=== PATIENT | male | born 1960 ===

== ENCOUNTER 2016-10-28 08:48 | Day surgery (SDC) | payer BC ==
[2016-10-18 10:46] VITALS: BMI 26.9
[2016-10-28 09:10] VITALS: RESP 16
[2016-10-28] MEDS ORDERED: Lactated Ringer's 1,000 ML IV SCH (09:15)
[2016-10-28] MEDS ORDERED: Propofol 10 mg/ml Inj (20 ML) ONE (09:20)
[2016-10-28 10:27] VITALS: TEMP 97.4
[2016-10-28 11:24] VITALS: PULSE 72; O2SAT 97
[2016-10-28 11:45] VITALS: BP 108/56
== END 2016-10-28 11:44 | disposition home or self-care (01) ==
LOC: ENDO 08:48
PROVIDERS: ATTEND Internal Medicine
DX: K29.00 Acute gastritis without bleeding (principal); R13.10 Dysphagia, unspecified; K26.9 Duodenal ulcer, unspecified as acute or chronic, without hemorrhage or perforation; Z12.11 Encounter for screening for malignant neoplasm of colon; K63.5 Polyp of colon; K64.8 Other hemorrhoids; K57.30 Diverticulosis of large intestine without perforation or abscess without bleeding; I25.10 Atherosclerotic heart disease of native coronary artery without angina pectoris
CPT/HCPCS: 43239; 45380; 88305; 88342; J2001; J2704; J3010; J7040; J7120

== ENCOUNTER 2016-12-05 06:43 | Day surgery (SDC) | payer BC ==
[2016-10-18 10:46] VITALS: BMI 26.9
--- NOTE | 2016-12-05 01:36 | HP ---
REASON FOR ADMISSION: Left heart catheterization, possible angioplasty. BRIEF CLINICAL HISTORY: This is a 56-year-old male with past medical history of hypertension who was recently patient is scheduled for elective cardiac cath and possible angioplasty. The patient denies any chest pain, shortness of breath, any palpitation. Positive for hypertension. SOCIAL HISTORY: Denies any history of alcohol abuse. CURRENT MEDICATIONS: The patient is taking metoprolol 25 mg daily and Protonix 40 mg daily. LABORATORY DATA: Cardiac workup as follows: The patient had a stress test 08/28/2016 that shows abn ormal myocardial perfusion study, ejection fraction 56%, partially reversible apical defect suspiciou s for ischemia. The patient had echocardiography done that shows ejection fraction 55-60%, trace aor tic regurgitation, trace mitral regurgitation, trace tricuspid regurgitation. REVIEW OF SYSTEMS: As per HPI. PHYSICAL EXAMINATION: VITAL SIGNS: Temperature afebrile, heart rate 60, blood pressure 120/30. HEENT: PERRLA. Extraocular muscles intact. NECK: Supple. No carotid bruits. No thyromegaly. CHEST: Clear to auscultation. HEART: S1, S2 regular. ABDOMEN: Soft. EXTREMITIES: Clubbing and cyanosis negative. Height of the patient 5 feet 10 inches. The weight of the patient is 182 pounds. RECOMMENDATION: Will give Plavix 300 mg, aspirin 325 and cardiac catheterization . I explained to the patient, the patient agreed, will proceed for cardiac catheterization. Further recommendatio n after cardiac catheterization. Will follow with you. Thank you, / , for providing the opportunity in taking care of the patient. Ifeanyi Groves MD cc: [id number] TT: 12/05/2016 01:36:21 evelyn
[2016-12-05 07:08] LABS: ADD MANUAL DIFF? NO
[2016-12-05 07:17] LABS: BASO # 0.01 K/mm3 (0.0-2.0); BASO % 0.2 % (0.0-3.0); EOS # 0.2 (0.0-0.7); EOS % 2.3 % (1.5-5.0); GRAN # 3.58 (1.4-6.5); GRAN % 54.3 % (50.0-68.0); HEMATOCRIT 41.1 % (42.0-52.0); LYMPH # 2.3 (1.2-3.4); LYMPH % 34.5 % (22.0-35.0); MEAN CELL VOLUME 81.7 fL (80.0-105.0); MEAN CORPUSCULAR HEMOGLOBIN 28.8 pg (25.0-35.0); MEAN CORPUSCULAR HGB CONC 35.3 g/dl (31.0-37.0); MEAN PLATELET VOLUME 9.5 fl (7.0-11.0); MONO # 0.6 (0.1-0.6); MONO % 8.7 % (1.0-6.0); PLATELET COUNT 235 10^3/uL (120.0-450.0); RED CELL DISTRIBUTION WIDTH 13.7 % (11.5-14.5); WHITE BLOOD COUNT 6.6 10^3/ul (4.5-11.0)
[2016-12-05 07:21] LABS: BLOOD UREA NITROGEN 14 mg/dL (7-21); CALCIUM 8.9 mg/dL (8.4-10.5); CARBON DIOXIDE 25 mmol/L (21-33); CHLORIDE 105 mmol/L (98-107); CHOLESTEROL 121 mg/dL (130-200); GFR AFRICAN-AMERICAN > 60; GLUCOSE,RANDOM 121 mg/dL (70-110); POTASSIUM 3.7 mmol/L (3.6-5.0); SODIUM 136 mmol/L (132-148)
[2016-12-05 07:24] LABS: INR 1.06 (0.93-1.08); PARTIAL THROMBOPLASTIN TIME 27.8 Seconds (23.7-30.8)
[2016-12-05] MEDS ORDERED: Lidocaine 2% Inj (20ml) ONE (09:29)
[2016-12-05] MEDS ORDERED: Midazolam 2 MG/2 ML VIAL ONE (09:29)
[2016-12-05] MEDS ORDERED: Iodixanol 320 MG/ML 200 ML BOTTLE IV ONE (09:30)
[2016-12-05] MEDS ORDERED: Iohexol 350mgl/ml 50 ML ONE (09:30)
[2016-12-05] MEDS ORDERED: Bacitracin 500 Units/gm Oint Foilpak UD TOP ONE (10:42)
[2016-12-05] MEDS ORDERED: Sodium Chloride 0.9% 1,000 ML IV SCH (10:45)
[2016-12-05 10:56] VITALS: TEMP 97.4
[2016-12-05 12:20] VITALS: BP 113/66; PULSE 54; RESP 20; O2SAT 98
--- NOTE | 2016-12-05 13:13 | CARD ---
APPROVED REPORT Procedure(s) performed: Left Heart Catheterization HISTORY The patient is a 56 year-old male with a history of : hypertension , C/O chest pain and abnormal Stress test. INDICATION The indication(s) include : positive stress test. CASE TECHNIQUE The patient was brought electively to the Cardiac Catheterization Laboratory in a fasting state and was prepped and draped in a sterile manner. The left wrist was infiltrated with 2% Lidocaine subcutaneous anesthesia. A Radial sheath sheath was inserted into the left radial artery without difficulty. Coronary angiography was performed using coronary diagnostic catheters. The left coronary system was accessed and visualized with a Diagnostic , JL3.5 ,5FR catheter. The right coronary system was accessed and visualized with a Diagnostic , JR 3.5,5Fr catheter. The left ventricle was accessed and visualized with a pig tail catheter. Left ventricular/Aortic Valve gradient assessed on pullback. Left ventriculogram was performed in MYRICK projection. Closure device was deployed with a Fr TR Band without any complications. The patient tolerated the procedure well and there were no complications associated with the procedure. Vessel Analysis The patient's coronary anatomy is right dominant. The left main coronary artery is a large size vessel with intimal irregularities. The left main trifurcates to the left anterior descending, circumflex, and ramus. The left anterior descending artery is a medium size vessel with intimal irregularities. The first diagonal branch is a medium size vessel with diffuse calcification noted throughout this vessel and without significant stenosis. The second diagonal branch is a small size vessel with intimal irregularities. The circumflex artery is a medium size vessel without significant stenosis. The first obtuse marginal branch is a small size vessel without significant stenosis. The ramus intermedius artery is a large size vessel without significant stenosis. The right coronary artery is a large size vessel with intimal irregularities and without significant stenosis. The right posterior descending artery is a large size vessel with intimal irregularities and without significant stenosis. Left Ventricle The left ventricle is normal in size with normal contractility. There was no cardiomyopathy. The left ventricular ejection fraction is estimated to be 55-60%. The left ventricular end diastolic pressure is 14 mmHg. There was no gradient across the aortic valve upon pullback. Conclusion Normal Coronaries Preserved LV FX. EF-55-60%, EDP-14 mmof Hg. When copmared from previouis Film dt.,12/04/2006 No significant change. Recommendations Smoking Cessation Cardiac Risk Reduction Program Weight Loss Reduction Program Consider W / U for Non Cardiac Chest pain Cc; Drs. Villagomez / Francesca.
[2016-12-05] MEDS ORDERED: Bacitracin 500 Units/gm Oint Foilpak UD ONE (13:55)
== END 2016-12-05 15:00 | disposition home or self-care (01) ==
LOC: CATH 06:43
PROVIDERS: ATTEND Internal Medicine Cardiovascular Disease
DX: R07.89 Other chest pain (principal); I10 Essential (primary) hypertension; R94.31 Abnormal electrocardiogram [ECG] [EKG]
CPT/HCPCS: 36415; 80048; 80061; 85025; 85610; 85730; 86850; 86900; 93458; 99152; C1769; C1887 ×2; J1644 ×2; J2250; J3010; J7040 ×2

== ENCOUNTER 2017-07-01 12:01 | Emergency (ER) | payer BC ==
[2017-07-01 12:20] VITALS: BP 145/77; PULSE 77; RESP 16; TEMP 98.2; O2SAT 98; BMI 43.2
--- NOTE | 2017-07-01 12:51 | ED PDOC ---
Arrival/HPI - General Chief Complaint: Dizziness/Lightheaded Time Seen by Provider: 07/01/17 12:12 Historian: Patient - History of Present Illness Narrative History of Present Illness (Text): 07/01/17 12:48 57 yo male with two weeks of pressure across forehead accompanied by episodic dizziness. Triggered by moving objects around him. Mild frontal headache. No trauma and no vision change. No recent fevers or illnesses. No chest pain. Symptoms are mild to moderate in severity. Incidentally patient says he has pain at right heel with weight bearing for over a month. Past Medical History - Patient History Narrative Patient History: Hypertension - Infectious Disease Hx of Infectious Diseases: None - Cardiac Hx Hypertension: Yes - Pulmonary Hx Respiratory Disorders: Yes Hx Emphysema: Yes Other/Comment: URI - Neurological Hx Paralysis: No - HEENT Hx HEENT Disorder: No - Renal Hx Renal Disorder: No - Endocrine/Metabolic Hx Endocrine Disorders: No - Hematological/Oncological Hx Blood Transfusions: No - Integumentary Hx Dermatological Disorder: No - Musculoskeletal/Rheumatological Hx Musculoskeletal Disorders: Yes - Gastrointestinal Hx Gastrointestinal Disorders: No - Genitourinary/Gynecological Hx Genitourinary Disorders: No - Psychiatric Hx Emotional Abuse: No Hx Physical Abuse: No Hx Substance Use: No - Past Surgical History Past Surgical History: No Previous - Surgical History Hx Musculoskeletal Surgery: Yes (toe) - Anesthesia Hx Anesthesia Reactions: No Hx Malignant Hyperthermia: No - Suicidal Assessment Feels Threatened In Home Enviroment: No Family/Social History Family/Social History: No Known Family HX Smoking Status: Heavy Smoker > 10 Cigarettes Daily Hx Alcohol Use: Yes (OCCASIONALLY) Hx Substance Use: No Allergies/Home Meds Allergies/Adverse Reactions: Allergies No Known Allergies Allergy (Verified 07/01/17 12:53) Patient relates allergy to IV contrast Home Medications: Home Meds Medication Instructions Recorded Confirmed Metoprolol Tartrate [Lopressor] 25 mg PO BID 10/18/16 07/01/17 Review of Systems - Review of Systems Constitutional: Normal Eyes: Normal ENT: Sinus Congestion Respiratory: Normal Cardiovascular: Normal Gastrointestinal: Normal Musculoskeletal: Other Skin: Normal Neurological: Headache Endocrine: Normal Hemo/Lymphatic: Normal Psychiatric: Normal Physical Exam Vital Signs Temp Pulse Resp BP Pulse Ox 07/01/17 12:02 98.2 F 77 16 145/77 98 Disposition/Present on Arrival - Present on Arrival Any Indicators Present on Arrival: No History of DVT/PE: No History of Uncontrolled Diabetes: No Urinary Catheter: No History of Decub. Ulcer: No History Surgical Site Infection Following: None - Disposition Have Diagnosis and Disposition been Completed?: Yes Diagnosis: Vertigo, Sinus congestion Disposition: HOME/ ROUTINE Disposition Time: 12:45 Patient Problems: Current Active Problems Problem Status Onset Vertigo Acute Sinus congestion Acute Condition: STABLE Discharge Instructions (ExitCare): Analgesic/Decongestant (By mouth), Vertigo ( ED) Prescriptions: Meclizine HCl 25 mg PO TID PRN #14 tablet PRN Reason: Dizziness Pseudoephedrine HCl [Sudafed] 30 mg PO BID PRN #14 tablet PRN Reason: Sinus Symptoms Referrals: Gildardo Nuno MD [Staff Provider] - Follow up with primary Forms: [facility] (Romansh), WORK NOTE
--- NOTE | 2017-07-02 07:44 | CARD ---
APPROVED REPORT EKG Measurement Heart [id number] <Conclusion> Normal sinus rhythm LVH by voltage
== END 2017-07-01 12:49 | disposition home or self-care (01) ==
LOC: ED 12:01
DX: R09.81 Nasal congestion (principal); R42 Dizziness and giddiness; I10 Essential (primary) hypertension; F17.210 Nicotine dependence, cigarettes, uncomplicated

== ENCOUNTER 2017-07-02 18:48 | Inpatient (IN) | payer BC ==
[2017-07-02 18:52] VITALS: BMI 25.1
--- NOTE | 2017-07-02 19:30 | CT ---
EXAM: CT Head Without Intravenous Contrast EXAM DATE/TIME: 07/02/2017 6:53 PM CLINICAL HISTORY: 57 years old, male; Signs and symptoms; Other: Weakness; Additional info: R/O stroke TECHNIQUE: Axial computed tomography images of the head/brain without intravenous contrast. All CT scans at this facility use one or more dose reduction techniques, viz.: automated exposure control; ma/kV adjustment per patient size (including targeted exams where dose is matched to indication; i.e. head); or iterative reconstruction technique. COMPARISON: No relevant prior studies available. FINDINGS: BRAIN: 1.6 cm round density in the right occipital lobe, which has a CT attenuation of 40-60 Hounsfield units, mildly hyperdense compared to navarrete matter. This is intraparenchymal in location, centered at the navarrete/white matter junction, and is suspicious for a mildly hyperdense intracranial lesion. There is a large area of nearby low density in the right occipital, parietal, and posterior frontal lobes, which appears to primarily involve the subcortical and deep white matter, and is suspicious for a large area of vasogenic edema, secondary to an underlying mass, rather than cytotoxic edema secondary to air acute infarct. There is associated intracranial mass effect. There is shift of the midline to the left up up to 4 mm, as well as effacement of the right lateral ventricle and diffuse sulcal effacement. No other significant abnormality identified. No acute extra-axial fluid collections visualized. No evidence of basilar cistern effacement. VENTRICLES: No evidence of significant hydrocephalus. BONES/JOINTS: No acute fractures or other acute bony abnormality noted. SOFT TISSUES: No acute abnormality of the visualized soft tissues is seen. SINUSES: Visualized paranasal sinuses appear clear. MASTOID AIR CELLS: Fluid in the mastoid air cells bilaterally, suspicious for bilateral mastoiditis. IMPRESSION: - Large area of edema in the right cerebral hemisphere posteriorly, suspicious for vasogenic edema secondary to an underlying intracranial lesion, in the right occipital lobe. There is a 1.7 cm mildly hyperdense lesion in the right occipital lobe, suspicious for a faintly hemorrhagic intracranial mass. A hemorrhagic metastatic lesion or primary brain tumor, such as a glioblastoma multiforme, are possible etiologies. - Associated intracranial mass effect, including 4 mm midline shift to the left. - See above for remaining findings.
[2017-07-02 19:31] LABS: BASO # 0.02 K/mm3 (0.0-2.0); BASO % 0.2 % (0.0-3.0); EOS # 0.2 (0.0-0.7); EOS % 2.7 % (1.5-5.0); GRAN # 5.19 (1.4-6.5); GRAN % 60.3 % (50.0-68.0); HEMATOCRIT 41.7 % (42.0-52.0); LYMPH # 2.6 (1.2-3.4); LYMPH % 30.3 % (22.0-35.0); MEAN CELL VOLUME 82.2 fl (80.0-105.0); MEAN CORPUSCULAR HEMOGLOBIN 28.6 pg (25.0-35.0); MEAN CORPUSCULAR HGB CONC 34.8 g/dl (31.0-37.0); MEAN PLATELET VOLUME 9.7 fl (7.0-11.0); MONO # 0.6 (0.1-0.6); MONO % 6.5 % (1.0-6.0); RED CELL DISTRIBUTION WIDTH 13.8 % (11.5-14.5); WHITE BLOOD COUNT 8.6 10^3/ul (4.5-11.0)
[2017-07-02 19:39] LABS: ALB/GLOB RATIO 1.1 (1.1-1.8); ALKALINE PHOSPHATASE 126 U/L (38-126); ALT/SGPT 29 U/L (7-56); AST/SGOT 20 U/L (17-59); BILIRUBIN,TOTAL 0.6 mg/dL (0.2-1.3); BLOOD UREA NITROGEN 12 mg/dL (7-21); CALCIUM 9.6 mg/dL (8.4-10.5); CARBON DIOXIDE 28 mmol/L (21-33); CHLORIDE 102 mmol/L (98-107); GFR AFRICAN-AMERICAN > 60; GLUCOSE,RANDOM 116 mg/dL (70-110); POTASSIUM 3.7 mmol/L (3.6-5.0); SODIUM 138 mmol/L (132-148); TOTAL PROTEIN 7.6 g/dL (5.8-8.3)
[2017-07-02 19:43] LABS: INR 1.17 (0.93-1.08); PARTIAL THROMBOPLASTIN TIME 32.7 Seconds (25.1-36.5)
[2017-07-02] MEDS ORDERED: levETIRAcetam 1,000 MG in Sodium Chloride 0.9% 100 ML IV ONE (19:44)
[2017-07-02 19:51] LABS: TROPONIN I < 0.01 ng/mL
--- NOTE | 2017-07-02 20:20 | CT ---
EXAM: CT Angiography Head With Intravenous Contrast CT Angiography Neck With Intravenous Contrast EXAM DATE/TIME: 07/02/2017 6:57 PM CLINICAL HISTORY: 57 years old, male; Signs and symptoms; Weakness; Additional info: CVA TECHNIQUE: Axial computed tomographic angiography images of the head and neck with intravenous contrast using CT angiography protocol. All CT scans at this facility use one or more dose reduction techniques, viz.: automated exposure control; ma/kV adjustment per patient size (including targeted exams where dose is matched to indication; i.e. head); or iterative reconstruction technique. All CT scans at this facility use one or more dose reduction techniques, viz.: automated exposure control; ma/kV adjustment per patient size (including targeted exams where dose is matched to indication; i.e. head); or iterative reconstruction technique. MIP reconstructed images were created and reviewed. Coronal and sagittal reformatted images were created and reviewed. CONTRAST: 140 mL of OMNI 350 administered intravenously. COMPARISON: Recent noncontrast head CT FINDINGS: LIMITATIONS: Mild streak/motion artifact. HEAD: RIGHT ANTERIOR CEREBRAL ARTERY: No evidence of occlusion. No aneurysm visualized. RIGHT MIDDLE CEREBRAL ARTERY: No evidence of occlusion. No aneurysm visualized. RIGHT POSTERIOR CEREBRAL ARTERY: No evidence of occlusion. No aneurysm visualized. LEFT ANTERIOR CEREBRAL ARTERY: No evidence of occlusion. No aneurysm visualized. LEFT MIDDLE CEREBRAL ARTERY: No evidence of occlusion. No aneurysm visualized. LEFT POSTERIOR CEREBRAL ARTERY: No evidence of occlusion. No aneurysm visualized. BASILAR ARTERY: No evidence of occlusion or significant stenosis. No aneurysm visualized. BRAIN: 1.7 cm lesion in the right occipital lobe, with extensive adjacent low-density edema in the right cerebral hemisphere, as seen on the recent noncontrast head CT. This demonstrates rim enhancement. 2 additional, smaller areas of edema are seen in the brain, in the left parietal lobe, and in the left high frontal lobe, better seen on this study than on the noncontrast head CT, suspicious for additional areas of edema, most likely secondary to additional underlying intracranial lesions, however, these lesions are not visible on this exam. NECK: RIGHT COMMON CAROTID ARTERY: No evidence of occlusion or significant stenosis. No evidence of dissection. RIGHT INTERNAL CAROTID ARTERY: Minimal atherosclerotic plaque in the right carotid bulb, causing a stenosis of approximately 10%. No evidence of occlusion. No evidence of dissection. RIGHT EXTERNAL CAROTID ARTERY: No evidence of occlusion. RIGHT VERTEBRAL ARTERY: No evidence of occlusion or significant stenosis. No evidence of dissection. LEFT COMMON CAROTID ARTERY: No evidence of occlusion or significant stenosis. No evidence of dissection. LEFT INTERNAL CAROTID ARTERY: No evidence of occlusion. No aneurysm visualized. LEFT EXTERNAL CAROTID ARTERY: No evidence of occlusion. LEFT VERTEBRAL ARTERY: No evidence of occlusion or significant stenosis. No evidence of dissection. THYROID: 1.6 cm right thyroid nodule. At least 2 additional smaller right thyroid nodules also noted. Recommend thyroid ultrasound or scintigraphy for further evaluation, given the size of this nodule, on a nonemergent basis, unless otherwise clinically indicated. LUNG APICES: Large, spiculated mass in the left lung apex, highly suspicious for neoplasm. This measures 6.6 x 5.3 cm. Marked emphysematous changes in the lung apices. HEAD and NECK: BONES/JOINTS: No acute bony abnormality identified. SOFT TISSUES: No acute abnormality of the visualized soft tissues seen. LYMPH NODES: Mild mediastinal lymphadenopathy. CAROTID STENOSIS REFERENCE USING NASCET CRITERIA: % ICA stenosis = (1 - narrowest ICA diameter/diameter of distal cervical ICA) x 100. Mild - <50% stenosis. Moderate - 50-69% stenosis. Severe - 70-94% stenosis. Near occlusion - 95-99% stenosis. Occluded - 100% stenosis. IMPRESSION: - No evidence of occlusion or other acute abnormality of the major intracranial or neck arteries. - Large 6.6 cm spiculated mass in the left lung apex, with nearby mediastinal lymphadenopathy. Findings are highly suspicious for neoplasm. - 1.7 cm lesion in the right occipital lobe, with a extensive nearby edema. 2 smaller areas of edema in the left frontal and parietal lobes, suspicious for edema due to additional underlying intracranial lesions. - Constellation of findings is highly suspicious for primary lung neoplasm, with multiple intracranial metastases. MRI of the brain is recommended for further evaluation. - See above for remaining findings.
--- NOTE | 2017-07-02 20:27 | ED PDOC ---
Arrival/HPI - General Chief Complaint: Weakness/Neurological Deficit Time Seen by Provider: 07/02/17 18:57 Historian: Patient EM Caveat: Acuity of Condition - Critical Care Critical Care Minutes: 90 minutes - History of Present Illness Narrative History of Present Illness (Text): 57 year old male w/ past medical history, cigarrette smoking, recent 07/01/17 Emergency department visit for dizziness w/ diagnosis of vertigo hypertension presents bibems complaining of acute onset of left sided hemiparasthesiae characterized as numbness in lue/lle. Pt endorses mild headache, but deneis nay acute symptoms of infective foci. 07/02/17 20:22 Time/Duration: 1-3 hours Symptom Onset: Sudden Past Medical History - Provider Review Nursing Documentation Reviewed: Yes - Infectious Disease Hx of Infectious Diseases: None - Cardiac Hx Hypertension: Yes - Pulmonary Hx Respiratory Disorders: Yes Hx Emphysema: Yes Other/Comment: URI - Neurological Hx Paralysis: No - HEENT Hx HEENT Disorder: No - Renal Hx Renal Disorder: No - Endocrine/Metabolic Hx Endocrine Disorders: No - Hematological/Oncological Hx Blood Transfusions: No - Integumentary Hx Dermatological Disorder: No - Musculoskeletal/Rheumatological Hx Musculoskeletal Disorders: Yes - Gastrointestinal Hx Gastrointestinal Disorders: No - Genitourinary/Gynecological Hx Genitourinary Disorders: No - Psychiatric Hx Emotional Abuse: No Hx Physical Abuse: No Hx Substance Use: No - Past Surgical History Past Surgical History: No Previous - Surgical History Hx Musculoskeletal Surgery: Yes (toe) - Anesthesia Hx Anesthesia Reactions: No Hx Malignant Hyperthermia: No - Suicidal Assessment Feels Threatened In Home Enviroment: No Family/Social History - Physician Review Nursing Documentation Reviewed: Yes Family/Social History: No Known Family HX Smoking Status: Heavy Smoker > 10 Cigarettes Daily Hx Alcohol Use: Yes (OCCASIONALLY) Hx Substance Use: No Allergies/Home Meds Allergies/Adverse Reactions: Allergies No Known Allergies Allergy (Verified 07/02/17 18:52) Patient relates allergy to IV contrast Home Medications: Home Meds Medication Instructions Recorded Confirmed Metoprolol Tartrate [Lopressor] 25 mg PO DAILY 10/18/16 07/02/17 Review of Systems - Physician Review All systems were reviewed & negative as marked: Yes - Review of Systems Constitutional: Normal Eyes: Normal ENT: Normal Respiratory: Normal Cardiovascular: Normal Gastrointestinal: Normal Genitourinary Male: Normal Musculoskeletal: Normal Skin: Normal Neurological: Dizziness, Other (aforedescribed) Endocrine: Normal Hemo/Lymphatic: Normal Psychiatric: Normal Physical Exam Vital Signs Reviewed: Yes Temperature: Afebrile Blood Pressure: Normal Pulse: Regular Respiratory Rate: Normal Appearance: Positive for: Well-Appearing, Non-Toxic, Comfortable Pain Distress: None Mental Status: Positive for: Alert and Oriented X 3 Finger Stick Blood Glucose: 123 - Systems Exam Head: Present: Atraumatic, Normocephalic Pupils: Present: PERRL Extroacular Muscles: Present: EOMI Conjunctiva: Present: Normal Mouth: Present: Moist Mucous Membranes Neck: Present: Normal Range of Motion Respiratory/Chest: Present: Clear to Auscultation, Good Air Exchange. No: Respiratory Distress, Accessory Muscle Use Cardiovascular: Present: Regular Rate and Rhythm, Murmurs, Normal S1, S2, Other (systolic ejection murmur best heard at the USB) Abdomen: Present: Normal Bowel Sounds. No: Tenderness, Distention, Peritoneal Signs Back: Present: Normal Inspection Upper Extremity: Present: Normal Inspection. No: Cyanosis, Edema Lower Extremity: Present: Normal Inspection. No: Edema Neurological: Present: GCS=15, CN II-XII Intact, Speech Normal, Motor Func Grossly Intact, Norm Deep Tendon Reflexes, Gait Normal, Memory Normal, Normal 2Pt Descrimination, Other (see nihss documentation as well. pt nihss: 4 (1+ incorrect answer to orientation question, 1+ relative sensory deficit , 1+ left sided neglect , 1+ mild dysmetria w/ fonger past pointing on the left) )) Skin: Present: Warm, Dry, Normal Color. No: Rashes Psychiatric: Present: Alert, Oriented x 3, Normal Insight, Normal Concentration Medical Decision Making ED Course and Treatment: 57 year old male w/ past medical history of hypertension, CAD, cigarrette smoking presents w/ acute left sided numbness/hemineglect , cta head/neck + rt sided posterior fossa mass w/ edema, left sided 4 mm midline shift, + large spiculated mass i the lung, will need admission for mass biospy/characterization /cancer staging , oncologicial workup and treatment. 07/02/17 21:23 - Lab Interpretations Lab Results: 07/02/17 19:10 07/02/17 19:10 Lab Results 07/02/17 19:45: Lactic Acid 1.9 07/02/17 19:10: Sodium 138, Potassium 3.7, Chloride 102, Carbon Dioxide 28, Anion Gap 12, BUN 12, Creatinine 0.8, Est GFR ( Amer) > 60, Est GFR (Non- Af Amer) > 60, Random Glucose 116 H, Calcium 9.6, Total Bilirubin 0.6, AST 20, ALT 29, Alkaline Phosphatase 126, Lactate Dehydrogenase 462, Total Creatine Kinase 124, Troponin I < 0.01, NT-Pro-B Natriuret Pep 36.1, Total Protein 7.6, Albumin 4.1, Globulin 3.6, Albumin/Globulin Ratio 1.1 07/02/17 19:10: WBC 8.6 D, RBC 5.07, Hgb 14.5, Hct 41.7 L, MCV 82.2, MCH 28.6, MCHC 34.8, RDW 13.8, Plt Count 301, MPV 9.7, Gran % 60.3, Lymph % (Auto) 30.3, [place] % (Auto) 6.5 H, Eos % (Auto) 2.7, Baso % (Auto) 0.2, Gran # 5.19, Lymph # 2.6, [place] # 0.6, Eos # 0.2, Baso # 0.02 07/02/17 19:10: PT 12.8 H, INR 1.17 H, APTT 32.7 - RAD Interpretation Radiology Orders: 07/02/17 18:53 HEAD W/O (CODE STROKE) [CT] Stat 07/02/17 18:57 CTA HEAD & NECK BUNDLE [CT] Stat 07/02/17 18:59 CHEST PORTABLE [RAD] Stat - Medication Orders Current Medication Orders: Discontinued Medications Dexamethasone (Decadron Inj) 10 mg IVP STAT STA Stop: 07/02/17 19:45 Last Admin: 07/02/17 19:56 Dose: 10 mg IVP Administration Document 07/02/17 19:56 JOL (Rec: 07/02/17 19:56 JOL [id number]) Charges for Administration # of IVP Administrations 1 Levetiracetam 1,000 mg/ Sodium (Chloride) 110 mls @ 440 mls/hr IV ONCE ONE Stop: 07/02/17 19:58 Last Admin: 07/02/17 20:05 Dose: 440 mls/hr eMAR Start Stop Document 07/02/17 20:05 JOL (Rec: 07/02/17 20:06 JOL [id number]) Intravenous Solution Start Date 07/02/17 Start Time 20:05 End Date 07/02/17 End time 20:20 Total Infusion Time 15 NIHSS Scale (Frost) Time Performed: 18:50 - How Severe is the Stoke Baseline Level of Consciousness: 0=Alert LOC to Questions: 1=One correct LOC to commands: 0=Obeys both correctly Best Gaze: 0=Normal Visual: 0=No visual loss Facial: 0=Normal Motor Arm - Left: 0=No drift Motor Arm - Right: 0=No drift Motor Leg - Left: 0=No drift Motor Leg - Right: 0=No drift Limb Ataxia: 1=Present Upper or Lower Sensory: 1=Mild to moderate loss Best Language: 0=No aphasia Dysarthia: 0=Normal articulation Extinction & Inattention (Neglect): 1=Partial neglect (mild ghanshyam-attention) Score: 4 Risk Level: Minor Stroke Risk Disposition/Present on Arrival - Present on Arrival Any Indicators Present on Arrival: No History of DVT/PE: No History of Uncontrolled Diabetes: No Urinary Catheter: No History of Decub. Ulcer: No History Surgical Site Infection Following: None - Disposition Have Diagnosis and Disposition been Completed?: Yes Diagnosis: Neoplasm of brain causing mass effect on adjacent structures, Lung mass Disposition: HOSPITALIZED Disposition Time: :22 Patient Plan: Admission Patient Problems: Current Active Problems Problem Status Onset Lung mass Acute Neoplasm of brain causing mass effect on adjacent structures Acute Condition: GUARDED Referrals: PCP,NO [Primary Care Provider] - Follow up with primary Forms: [employer] (Estonian)
[2017-07-02] MEDS: levETIRAcetam 500mg IVPB 500 MG/100 ML BAG IVPB SCH (22:16)
--- NOTE | 2017-07-02 22:27 | CP.PCM.CON ---
<Carly Randolph - Last Filed: 07/07/17 06:47> History of Present Illness - History of Present Illness History of Present Illness: PGY-2 consult note for ICU 57 year old male with past medical history of HTN and tobacco use presents to ED for acute onset of left sided hemiparasthesiae characterized as numbness in left upper extremity and left lower extremity. Patient reports headache. He was recently seen in the ED on 07/01/17 dizziness w/ diagnosis of vertigo hypertension and given meclizine and sudafed. Patient states that he has had headaches, vertigo and blurry vision intermittently over the past 2 weeks. He denies any focal neurological deficits before today. He reports chronic cough with white sputum for past few years. He was diagnosed with HTN about year ago but has not followed up. Patient denies chest pain, fever, chills, sob, nausea, vomiting, diarrhea, or urinary symptoms. PMH: HTN PSH: denies social history: smokes 1ppd since 10 yo, denies alcohol use, illicit drug use family history: mother ovarian cancer allergy: nkda home meds: lopressor 25mg daily Review of Systems - Constitutional Constitutional: Headache. absent: Chills, Fatigue, Fever, Lethargy - EENT Eyes: Blurred Vision Nose/Mouth/Throat: absent: Nasal Congestion, Nasal Discharge - Cardiovascular Cardiovascular: absent: Chest Pain, Dyspnea, Palpitations - Respiratory Respiratory: Cough. absent: Dyspnea, Hemoptysis, Wheezing - Gastrointestinal Gastrointestinal: absent: Abdominal Pain, Constipation, Diarrhea, Hematemesis, Hematochezia, Nausea, Vomiting - Genitourinary Genitourinary: absent: Difficulty Urinating, Dysuria, Hematuria - Musculoskeletal Musculoskeletal: Numbness. absent: Arthralgias, Back Pain, Muscle Weakness, Neck Pain, Tingling - Integumentary Integumentary: absent: Skin Ulcer, Sores, Striae, Swelling, Wounds - Neurological Neurological: Numbness, Headaches, Vertigo. absent: Syncope - Hematologic/Lymphatic Hematologic: absent: Easy Bleeding, Easy Bruising Past Patient History - Infectious Disease Hx of Infectious Diseases: None - Past Social History Smoking Status: Heavy Smoker > 10 Cigarettes Daily - CARDIAC Hx Cardiac Disorders: Yes (chest pain) Hx Hypercholesterolemia: Yes Hx Hypertension: Yes - PULMONARY Hx Respiratory Disorders: Yes Hx Emphysema: Yes Other/Comment: URI - NEUROLOGICAL Hx Neurological Disorder: Yes Hx Dizziness: Yes (vertigo) Other/Comment: headaches on and off x 2 weeks - HEENT Hx HEENT Problems: Yes (sinus congestion) Other/Comment: recent impaired vision r eye blurred, having prioblems with periphral vision and feels like right eye is crossed when following finger - RENAL Hx Chronic Kidney Disease: No - ENDOCRINE/METABOLIC Hx Endocrine Disorders: No - HEMATOLOGICAL/ONCOLOGICAL Hx Blood Disorders: No - INTEGUMENTARY Hx Dermatological Problems: No - MUSCULOSKELETAL/RHEUMATOLOGICAL Hx Musculoskeletal Disorders: Yes Hx Back Pain: Yes (sciatica) Hx Falls: Yes (fell today in ct scan) Hx Unsteady Gait: Yes (off balance) Other/Comment: lumbar radiculopathy, fell today 07/02/[address] scan stood up at side of bed to void in urinal and fell - GASTROINTESTINAL Other/Comment: egc/colonoscopy 10/28/16 pre op dx was dysphagia- post op dx duodenitis, duodenal ulcer, erosive gastritis, r/o h pylori, polyp, diverticulosis, hemorrhoids - GENITOURINARY/GYNECOLOGICAL Hx Genitourinary Disorders: No - PSYCHIATRIC Hx Emotional Abuse: No Hx Physical Abuse: No - SURGICAL HISTORY Hx Cardiac Catheterization: Yes (12/05/16-abnormal stress test-cp) Hx Musculoskeletal Surgery: Yes Other/Comment: left ft 3rd toe sx about 4 yrs ago crooked toe was straightened - ANESTHESIA Hx Anesthesia Reactions: No Hx Malignant Hyperthermia: No Meds Allergies/Adverse Reactions: Allergies Allergy/AdvReac Type Severity Reaction Status Date / Time No Known Allergies Allergy Verified 07/02/17 18:52 - Medications Medications: Current Medications Dexamethasone (Decadron Inj) 4 mg IM Q6 YRN Levetiracetam (Keppra 500mg Ivpb) 500 mg in 100 mls @ 400 mls/hr IVPB Q12 YRN Last Admin: 07/02/17 22:16 Dose: Not Given Pantoprazole Sodium (Protonix Ec Tab) 40 mg PO DAILY [facility] Physical Exam - Constitutional Appears: Well, No Acute Distress - Head Exam Head Exam: ATRAUMATIC, NORMAL INSPECTION, NORMOCEPHALIC - Eye Exam Eye Exam: EOMI, Normal appearance, PERRL - ENT Exam ENT Exam: Mucous Membranes Moist - Respiratory Exam Respiratory Exam: Clear to Auscultation Bilateral, NORMAL BREATHING PATTERN. absent: Rales, Rhonchi, Wheezes, Respiratory Distress - Cardiovascular Exam Cardiovascular Exam: REGULAR RHYTHM, +S1, +S2. absent: Tachycardia, Diastolic murmur, Systolic Murmur - GI/Abdominal Exam GI & Abdominal Exam: Normal Bowel Sounds, Soft. absent: Distended, Firm, Guarding, Tenderness - Extremities Exam Extremities exam: Positive for: normal inspection. Negative for: pedal edema - Neurological Exam Neurological exam: Alert, CN II-XII Intact, Oriented x3 - Expanded Neurological Exam Expanded Patient oriented to: person, place, time Speech: Fluid Speech Cranial nerves: EOM's Intact: Normal, Tongue Deviation: Normal Cerebellar Function: Finger to Nose: Normal Neuro motor strength exam: Left Upper Extremity: 5, Right Upper Extremity: 5, Left Lower Extremity: 5, Right Lower Extremity: 5 - Skin Skin Exam: Dry, Intact, Normal Color, Warm Results - Labs Result Diagrams: 07/03/17 05:30 07/02/17 19:10 Labs: Laboratory Results - last 24 hr 07/02/17 07/02/17 07/02/17 19:10 19:10 19:10 WBC 8.6 D RBC 5.07 Hgb 14.5 Hct 41.7 L MCV 82.2 MCH 28.6 MCHC 34.8 RDW 13.8 Plt Count 301 MPV 9.7 Gran % 60.3 Lymph % (Auto) 30.3 Gates % (Auto) 6.5 H Eos % (Auto) 2.7 Baso % (Auto) 0.2 Gran # 5.19 Lymph # 2.6 Gates # 0.6 Eos # 0.2 Baso # 0.02 PT 12.8 H INR 1.17 H APTT 32.7 Sodium 138 Potassium 3.7 Chloride 102 Carbon Dioxide 28 Anion Gap 12 BUN 12 Creatinine 0.8 Est GFR ( Amer) > 60 Est GFR (Non-Af Amer) > 60 Random Glucose 116 H Lactic Acid Calcium 9.6 Total Bilirubin 0.6 AST 20 ALT 29 Alkaline Phosphatase 126 Lactate Dehydrogenase 462 Total Creatine Kinase 124 Troponin I < 0.01 NT-Pro-B Natriuret Pep 36.1 Total Protein 7.6 Albumin 4.1 Globulin 3.6 Albumin/Globulin Ratio 1.1 07/02/17 19:45 WBC RBC Hgb Hct MCV MCH MCHC RDW Plt Count MPV Gran % Lymph % (Auto) [place] % (Auto) Eos % (Auto) Baso % (Auto) Gran # Lymph # Gates # Eos # Baso # PT INR APTT Sodium Potassium Chloride Carbon Dioxide Anion Gap BUN Creatinine Est GFR ( Amer) Est GFR (Non-Af Amer) Random Glucose Lactic Acid 1.9 Calcium Total Bilirubin AST ALT Alkaline Phosphatase Lactate Dehydrogenase Total Creatine Kinase Troponin I NT-Pro-B Natriuret Pep Total Protein Albumin Globulin Albumin/Globulin Ratio Assessment & Plan - Assessment and Plan (Free Text) Assessment: 57 year old male with past medical history of HTN and tabacoo use presents to ED for acute onset of left sided hemiparasthesiae characterized as numbness in left upper extremity and left lower extremity. Plan: Neurology - patient states that numbness has improved since presenting to ED - CT head shows large area of edema right cerebral hemisphere, 1.7cm intracranial lesion in the right occipital lobe (please refer to full report) - CTA neck and head shows no abnormalities of intracranial or neck arteries, large 6.6 cm spiculated mass left lung apex - patient received decadron 2 10mg doses in ED - he received keppra in ED - Neurosurgery was consulted by ED attending - Neurology consulted cardiovascular - hemodynamically stable - troponins negative x1 - continue to monitor - maintain MAP>65 pulm - CTA of head and neck showed large 6.6 cm spiculated mass left lung apex - possible malignacy - currently stable - consider CT of chest - consider pulm consult - supplemental O2 to maintain SaOr greater then 90% GI - protonix for GI prophalaxsis ID - patient is afebrile without leukocytosis - stable alejandra - stable - monitor electrolytes - replace as needed Case reviewed and discussed with attending, Dr. Rangel <Claire PRO,Lj - Last Filed: 07/07/17 08:43> Meds - Medications Medications: Current Medications Acetaminophen (Tylenol 325mg Tab) 650 mg PO Q4 PRN PRN Reason: Pain, Mild (1-3) Alprazolam (Xanax) 0.5 mg PO HS YRN PRN Reason: Protocol Last Admin: 07/06/17 23:18 Dose: 0.5 mg Dexamethasone (Decadron Inj) 4 mg IV Q6 YRN Last Admin: 07/07/17 05:26 Dose: 4 mg Levetiracetam (Keppra 500mg Ivpb) 500 mg in 100 mls @ 400 mls/hr IVPB Q12 [facility] Last Admin: 07/06/17 22:38 Dose: 400 mls/hr Meclizine HCl (Antivert) 25 mg PO TID PRN PRN Reason: Dizziness Metoprolol Tartrate (Lopressor) 25 mg PO DAILY [facility] Last Admin: 07/07/17 08:28 Dose: 25 mg Nicotine (Nicoderm Cq) 1 patch TD DAILY [facility] Last Admin: 07/06/17 09:44 Dose: Not Given Ondansetron HCl (Zofran Inj) 4 mg IVP Q6H PRN PRN Reason: Nausea/Vomiting Pantoprazole Sodium (Protonix Ec Tab) 40 mg PO 0600 [facility] Last Admin: 07/07/17 05:26 Dose: Not Given Results - Vital Signs Recent Vital Signs: Last Vital Signs Temp 97.4 F L 07/07/17 07:30 Pulse 68 07/07/17 08:28 Resp 18 07/07/17 07:30 BP 114/60 07/07/17 08:28 Pulse Ox 96 07/07/17 07:30 - Labs Result Diagrams: 07/07/17 07:00 07/07/17 07:00 Labs: Laboratory Results - last 24 hr 07/07/17 07/07/17 07:00 07:00 WBC 14.0 H RBC 5.16 Hgb 14.5 Hct 42.5 MCV 82.4 MCH 28.1 MCHC 34.1 RDW 13.7 Plt Count 325 MPV 9.6 Gran % 82.4 H Lymph % (Auto) 12.8 L [place] % (Auto) 4.7 Eos % (Auto) 0.0 L Baso % (Auto) 0.1 Gran # 11.51 H Lymph # 1.8 Gates # 0.7 H Eos # 0.0 Baso # 0.01 Sodium 136 Potassium 4.6 Chloride 103 Carbon Dioxide 26 Anion Gap 12 BUN 20 Creatinine 0.7 L Est GFR ( Amer) > 60 Est GFR (Non-Af Amer) > 60 Random Glucose 116 H Calcium 8.9 Total Bilirubin 0.5 AST 15 L ALT 25 Alkaline Phosphatase 100 Total Protein 6.4 Albumin 3.5 Globulin 3.0 Albumin/Globulin Ratio 1.2 Attending/Attestation - Attestation I have personally seen and examined this patient.: Yes I have fully participated in the care of the patient.: Yes I have reviewed all pertinent clinical information: Yes Notes (Text): -I agree with the above ICU consult note completed by the resident physician with the following additions and/or changes: -The patient is a 57 year old man with a history of chronic tobacco use and HTN , who presents with acute left-sided hemiparasthesia and intermittent "band-like " headaches. Imaging done in the ED shows a brain (with associated edema and shift) and lung mass, suspicious for metastatic lung cancer. As a result of his brain mass with edema, both and neurology and neurosurgery are already on board and plan to evaluate the patient in the morning. No acute interventions overnight recommended by either. Will admit to the ICU to monitor hourly neuro- checks. Will also give IV steroids to help prevent worsening cerebral edema and seizure prophylaxes medication.
[2017-07-02] MEDS ORDERED: Influenza Vaccine 60 mcg/0.5 mL SYR (4YR UP) IM ONE (22:46)
[2017-07-02] MEDS ORDERED: Pneumococcal 23-Valent Vaccine IM ONE (22:46)
[2017-07-03] MEDS: Dexamethasone 4 mg/1 ml IM SCH ×2 (00:29→05:53)
[2017-07-03] MEDS: Pantoprazole 40 mg EC Tab PO SCH (06:00)
[2017-07-03 06:19] LABS: BASO # 0.01 K/mm3 (0.0-2.0); BASO % 0.1 % (0.0-3.0); GRAN # 5.63 (1.4-6.5); GRAN % 84.1 % (50.0-68.0); HEMATOCRIT 42.3 % (42.0-52.0); LYMPH % 14.6 % (22.0-35.0); MEAN CELL VOLUME 81.7 fl (80.0-105.0); MEAN CORPUSCULAR HEMOGLOBIN 28.4 pg (25.0-35.0); MEAN CORPUSCULAR HGB CONC 34.8 g/dl (31.0-37.0); MEAN PLATELET VOLUME 10.3 fl (7.0-11.0); MONO # 0.1 (0.1-0.6); MONO % 1.2 % (1.0-6.0); RED CELL DISTRIBUTION WIDTH 13.7 % (11.5-14.5); WHITE BLOOD COUNT 6.7 10^3/ul (4.5-11.0)
[2017-07-03 06:53] LABS: FREE T4 1.35 ng/dL (0.78-2.19)
[2017-07-03 07:08] LABS: PROSTATE SPECIFIC ANTIGEN 0.4 ng/mL (0.00-2.5); THYROID STIMULATING HORMONE 0.36 mIU/mL (0.46-4.68)
[2017-07-03 07:26] LABS: ALKALINE PHOSPHATASE 114 U/L (38-126); ALT/SGPT 21 U/L (7-56); AST/SGOT 17 U/L (17-59); BILIRUBIN,TOTAL 0.5 mg/dL (0.2-1.3); BLOOD UREA NITROGEN 12 mg/dL (7-21); CALCIUM 9.9 mg/dL (8.4-10.5); CARBON DIOXIDE 19 mmol/L (21-33); CHLORIDE 106 mmol/L (98-107); CHOLESTEROL 121 mg/dL (130-200); GFR AFRICAN-AMERICAN > 60; GLUCOSE,RANDOM 160 mg/dL (70-110); POTASSIUM 5.1 mmol/L (3.6-5.0); SODIUM 138 mmol/L (132-148); TOTAL PROTEIN 7.8 g/dL (5.8-8.3)
--- NOTE | 2017-07-03 09:17 | CARD ---
APPROVED REPORT EKG Measurement Heart [id number] <Conclusion> Normal sinus rhythm Normal ECG
[2017-07-03] MEDS: levETIRAcetam 500mg IVPB 500 MG/100 ML BAG IVPB SCH ×2 (09:52→21:46)
--- NOTE | 2017-07-03 10:18 | CON ---
DATE: HISTORY OF PRESENT ILLNESS: A 57-year-old male admitted through the emergency room last night with history of hypertension, presented to the emergency room 2 days ago with complaints of dizziness, headache, and blurry vision. He was told that he had a most likely sinusitis and was sent home. He reports that yesterday he started to have this funny numbness feeling in his left arm which brought him back to the emergency room. He has a history of smoking and hypertension. He reports chronic cough over the last few years. FAMILY HISTORY: Significant family history except mother had ovarian cancer. SOCIAL HISTORY: He smokes a pack of cigarettes a day for the last 12 years. He denies alcohol use. REVIEW OF SYSTEMS: Essentially negative. PHYSICAL EXAMINATION: GENERAL: Currently, he is awake, alert, mildly confused. NEUROLOGIC: His pupils are equal, his EOMs are full, his face is symmetric. Motor exam is 5/5. Sensory exam is fully intact. There is no drift. His reflexes are . LABORATORY DATA: He has, on CTA scan, a 6.6 cm mass on the left lung apex. The CTA of the brain demonstrates right 1.7 cm lesion in the occipital lobe with extensive edema. There were 2 small areas of edema in the left frontal and left parietal lobes. He was given Decadron last night. Mostly likely what we are seeing is multiple mets to the brain from lung cancer. MRI of the brain is pending. It should be done with contrast. He was place do Decadron 1 mg q.6. Once we have the MRI study, I will be able to offer more comprehensive treatment plan. Johnson Rizo MD
--- NOTE | 2017-07-03 11:16 | RAD ---
HISTORY: cva COMPARISON: Correlation made with CTA of the neck and brain 07/02/2017 which imaged the upper lobes. FINDINGS: LUNGS: Re- demonstrated is a large spiculated mass density left lung apex which was described in detail on prior CTA of the neck. Please refer to that report for additional details about the suspected malignant lesion. Emphysematous changes are less well seen on this study as compared to high-resolution CT scan. . There appears to be a diffuse micronodular interstitial densities. . Rule out developing interstitial pneumonia. Underlying fibrosis may contribute. PLEURA: No significant pleural effusion identified, no pneumothorax apparent. CARDIOVASCULAR: Normal. OSSEOUS STRUCTURES: No significant abnormalities. VISUALIZED UPPER ABDOMEN: Normal. OTHER FINDINGS: None. IMPRESSION: Re- demonstrated is a large spiculated mass density left lung apex which was described in detail on prior CTA of the neck. Please refer to that report for additional details about the suspected malignant lesion. Emphysematous changes are less well seen on this study as compared to high-resolution CT scan. . There appears to be a diffuse micronodular interstitial densities. . Rule out developing interstitial pneumonia. Underlying fibrosis may contribute.
[2017-07-03] MEDS: Dexamethasone 4 mg/1 ml IV SCH ×3 (12:49→23:49)
--- NOTE | 2017-07-03 14:35 | CON ---
DATE: 07/03/2017 HISTORY OF PRESENT ILLNESS: The patient is 57-year-old gentleman with history of hypertension and COPD who is fairly noncompliant with inhaler therapy nor with follow ups with doctors and who presented this time with fatigue, tiredness, gait instability, some numbness and weakness in the left upper extremity, mild dysarthria. On further examination, he was found to have left upper lobe mass with mediastinal lymphadenopathy and several areas of local swelling in the brain. Of note, the patient is a lifelong smoker and has been smoking since 10 years old. He is 57 years old now. The patient reports that he has not seen by doctor for a long time. No fever, no chills, no sweats. No nausea, no vomiting, no diarrhea. No constipation. PAST MEDICAL HISTORY: Hypertension. MEDICATIONS AT HOME: None. FAMILY HISTORY: Noncontributory. REVIEW OF SYSTEMS: Review of 12-organ systems other than mentioned in history of present illness is negative. PHYSICAL EXAMINATION: VITAL SIGNS: Oxygen saturation 90 on room air, blood pressure 112/66, heart rate 72. ENT: Head and neck atraumatic. LUNGS: Decreased breath sounds bilaterally. HEART: Regular rate and rhythm. S1, S2 normal. ABDOMEN: Soft, nontender, nondistended. MUSCULOSKELETAL: No C/C/E. NEUROLOGIC: There is 3/5 motor strength in the left upper extremity. The motor strength in all other extremities are equal. Cranial nerves exam is grossly unremarkable. SKIN: Color moist. PSYCHIATRIC: The patient is alert and oriented x3. LABORATORY DATA: WBC 6.7, hemoglobin 13.7, platelet count 302. Sodium 138, potassium 5.1, chloride 106, carbon dioxide 19, BUN 12, creatinine 0.8, glucose 160, lactic acid 1.9, AST 17, ALT 21, albumin 5, INR 1.17. MEDICATIONS: Decadron 4 mg IV q. 6 h., Keppra 500 mg IV q. 12 h., meclizine, metoprolol, Protonix. CT scan of the head revealed a large area of edema in the right cerebral hemisphere posteriorly suspicious for vasogenic edema secondary to an underlying intracranial lesion. In the right occipital lobe, there is a 1.7 cm mildly hyperdense lesion in the right occipital lobe suspicious for faintly hemorrhagic intracranial mass, a hemorrhagic metastatic lesion or primary brain tumor such as glioblastoma multiforme, possible etiologies. Associated intracranial mass effect including 4 mm midline shift of the left. Head and neck CTA also showed a spiculated mass 6.6 cm in the left lung apex with nearby mediastinal lymphadenopathy, 1.7 cm lesion in the right occipital lobe with extensive nearby edema, 2 small areas of edema in the left frontal and parietal lobes suspicious for edema due to additional underlying intracranial lesions. Constellation of findings is highly suspicious for primary lung neoplasm with multiple intracranial metastasis. MRI is recommended. ASSESSMENT AND PLAN: This is a 57-year-old gentleman with some neurological abnormalities in the setting of left upper lobe lung mass with associated lesions in the brain. Clinical presentation highly suspicious for primary lung malignancy, especially small cell lung carcinoma with metastasis to the brain. MRI of the brain was ordered. The patient is on Decadron to offset vasogenic edema. The patient is able to protect his airways and hemodynamically stable. The patient has history of chronic obstructive pulmonary disease and has borderline hypoxemia. We will continue to target euvolemia, euglycemia, normothermia and oxygen saturation more than 90%. We will continue with DVT, GI prophylaxis. We will start the patient on bronchodilators and anticholinergic muscarinic inhalers, antagonist inhalers. Neurosurgical consult is appreciated. Neurology consult is pending. ccm time 40 min Jason Juárez MD MTDD
--- NOTE | 2017-07-03 15:59 | CP.PCM.CON ---
History of Present Illness - History of Present Illness History of Present Illness: Mr Levy is a 57 year old gentleman with a past medical history of smoking and hypertension who presented to [facility] with acute neurologic changes including headaches and left sided arm numbness and weakness. On admission, he had a CT and CTA of the head/neck on July 02, 2017 which was significant for a 1.7cm lesion in the right occipital lobe with vasogenic edema. There was additional two areas of edema in the left parietal and left frontal region. Incidentally, a 6.6cm left apical lung lesion was visualized on the CTA. He was started on decadron. Review of Systems - Constitutional Constitutional: Headache, Weakness - Neurological Neurological: Numbness, Focal Weakness (left upper extremity weakness) Past Patient History - Infectious Disease Hx of Infectious Diseases: None - Past Social History Smoking Status: Heavy Smoker > 10 Cigarettes Daily - CARDIAC Hx Cardiac Disorders: Yes (chest pain) Hx Hypercholesterolemia: Yes Hx Hypertension: Yes - PULMONARY Hx Respiratory Disorders: Yes Hx Emphysema: Yes Other/Comment: URI - NEUROLOGICAL Hx Neurological Disorder: Yes Hx Dizziness: Yes (vertigo) Other/Comment: headaches on and off x 2 weeks - HEENT Hx HEENT Problems: Yes (sinus congestion) Other/Comment: recent impaired vision r eye blurred, having prioblems with periphral vision and feels like right eye is crossed when following finger - RENAL Hx Chronic Kidney Disease: No - ENDOCRINE/METABOLIC Hx Endocrine Disorders: No - HEMATOLOGICAL/ONCOLOGICAL Hx Blood Disorders: No - INTEGUMENTARY Hx Dermatological Problems: No - MUSCULOSKELETAL/RHEUMATOLOGICAL Hx Musculoskeletal Disorders: Yes Hx Back Pain: Yes (sciatica) Hx Falls: Yes (fell today in ct scan) Hx Unsteady Gait: Yes (off balance) Other/Comment: lumbar radiculopathy, fell today 07/02/[address] scan stood up at side of bed to void in urinal and fell - GASTROINTESTINAL Other/Comment: egc/colonoscopy 10/28/16 pre op dx was dysphagia- post op dx duodenitis, duodenal ulcer, erosive gastritis, r/o h pylori, polyp, diverticulosis, hemorrhoids - GENITOURINARY/GYNECOLOGICAL Hx Genitourinary Disorders: No - PSYCHIATRIC Hx Emotional Abuse: No Hx Physical Abuse: No - SURGICAL HISTORY Hx Cardiac Catheterization: Yes (12/05/16-abnormal stress test-cp) Hx Musculoskeletal Surgery: Yes Other/Comment: left ft 3rd toe sx about 4 yrs ago crooked toe was straightened - ANESTHESIA Hx Anesthesia Reactions: No Hx Malignant Hyperthermia: No Meds Allergies/Adverse Reactions: Allergies Allergy/AdvReac Type Severity Reaction Status Date / Time No Known Allergies Allergy Verified 07/02/17 18:52 - Medications Medications: Current Medications Dexamethasone (Decadron Inj) 4 mg IV Q6 [facility] Last Admin: 07/03/17 12:49 Dose: 4 mg Levetiracetam (Keppra 500mg Ivpb) 500 mg in 100 mls @ 400 mls/hr IVPB Q12 [facility] Last Admin: 07/03/17 09:52 Dose: 400 mls/hr Meclizine HCl (Antivert) 25 mg PO TID PRN PRN Reason: Dizziness Metoprolol Tartrate (Lopressor) 25 mg PO DAILY [facility] Last Admin: 07/03/17 09:47 Dose: 25 mg Pantoprazole Sodium (Protonix Ec Tab) 40 mg PO 0600 [facility] Last Admin: 07/03/17 06:00 Dose: 40 mg Results - Vital Signs Recent Vital Signs: Last Vital Signs Temp 98.3 F 07/03/17 00:00 Pulse 64 07/03/17 10:00 Resp 17 07/03/17 06:15 BP 121/71 07/03/17 09:47 Pulse Ox 95 07/03/17 06:39 - Labs Result Diagrams: 07/03/17 05:30 07/03/17 05:30 Labs: Laboratory Results - last 24 hr 07/03/17 07/03/17 07/03/17 05:30 05:30 05:30 WBC 6.7 D RBC 5.18 Hgb 14.7 Hct 42.3 MCV 81.7 MCH 28.4 MCHC 34.8 RDW 13.7 Plt Count 302 MPV 10.3 Gran % 84.1 H Lymph % (Auto) 14.6 L [place] % (Auto) 1.2 Eos % (Auto) 0.0 L Baso % (Auto) 0.1 Gran # 5.63 Lymph # 1.0 L [place] # 0.1 Eos # 0.0 Baso # 0.01 Sodium 138 Potassium 5.1 H Chloride 106 Carbon Dioxide 19 L Anion Gap 18 BUN 12 Creatinine 0.8 Est GFR ( Amer) > 60 Est GFR (Non-Af Amer) > 60 Random Glucose 160 H Calcium 9.9 Total Bilirubin 0.5 AST 17 ALT 21 Alkaline Phosphatase 114 Total Protein 7.8 Albumin 4.0 Globulin 3.8 Albumin/Globulin Ratio 1.0 L Triglycerides 33 L Cholesterol 121 L LDL Cholesterol Direct 83 HDL Cholesterol 33 Prostate Specific Ag 0.4 Free T4 1.35 TSH 3rd Generation 0.36 L Assessment & Plan - Assessment and Plan (Free Text) Assessment: Mr Levy is a 57 year old gentleman with newly diagnosed intracranial lesions, most likely related to his lung mass. We would concur that he would need a MRI of the brain to delineate the extent of his intracranial disease since his CT of the head was without contrast. Also, he will need a full metastatic work-up including a CT of the chest, abdomen and pelvis. Also, a CT guided biopsy of the lung would be prudent for pathologic confirmation. This would help ascertain his intracranial treatment options whole brain radiation therapy versus stereotactic radiosurgery. Extent of his metastatic disease and pathology would be affect recommendations (non-small cell versus small cell histology)
--- NOTE | 2017-07-04 02:02 | HP ---
HISTORY OF PRESENT ILLNESS: The patient is 57-year-old, seen and examined, sitting in chair. The patient states yesterday when he was in his room, he told his roommate that he was feeling very dizzy as he is going to pass out, then he started to have tingling in his left side of the arm and the leg. He called his roommate to call ambulance and he was brought to emergency room. Initially, he thought he is having vertigo, but the patient does have history of hypertension and is not very compliant with medications. The patient states he was having numbness and dizziness and feeling of near syncope. He does not have any fever or chills. No cough. No congestion. No history of chest pain. No shortness of breath. PAST MEDICAL HISTORY: Significant for hypertension. ALLERGIES: NOT ALLERGIC TO ANY MEDICATIONS. MEDICATIONS AT HOME: He takes some medications for blood pressure, but is unknown to him. He states he once in a while takes [id number] dizziness medicine. SOCIAL HISTORY: He was and he has a son from his previous marriage and he has grown up. 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 REVIEW OF SYSTEMS: Significant for feeling of congested, having some left-sided numbness. PHYSICAL EXAMINATION: GENERAL: He is awake, alert, oriented, communicative. VITAL SIGNS: He is afebrile. Pulse 86, respirations 20, blood pressure 101/62. LUNGS: Bilateral fair airflow. No rhonchi or crackles. HEART: S1, S2, audible. ABDOMEN: Soft, nontender. No rebound. No guarding. NEUROLOGIC: The patient is awake, alert, oriented and communicative. LABORATORY DATA: WBC 6.7, hemoglobin 14.7, hematocrit 42.3, platelet 302. PT 12.8, INR 1.17. Chemistry; sodium 138, potassium 5.1, chloride 106, CO2 of 19, BUN 12, creatinine 0.8, blood sugar of 160. The patient had CT scan of the head done that shows large area of edema in the right cerebral hemisphere posteriorly suspicious for vasogenic edema secondary to underlying intracranial lesion in the right occipital lobe. There is 1.7 cm mildly hyperdense lesion in the right occipital lobe suspicious for hemorrhagic intracranial mass and hemorrhagic metastatic lesion of primary tumor. CT scan of the neck, no evidence of occlusion or other acute abnormality of the major intracranial neck arteries. Large 6.6 cm spiculated mass in the left lung apex with nearby mediastinal lymphadenopathy, findings are suspicious for neoplasm, 1.7 cm lesion in the right occipital lobe with extensive nearby edema. X-ray of the chest shows large spiculated mass density in the left lung apex, which was described in detail in the prior CT. ASSESSMENT AND PLAN: 1. Left upper lung mass, probably lung tumor and secondary to the brain. 2. History of hypertension. 3. Left hemiparesis. PLAN: We will continue the patient on Decadron. He is on meclizine, Eliquis. He is on Keppra and metoprolol. I will request Dr. Nathaniel Vivas for biopsy of left lung mass and then we will make further plan. Request [facility] to evaluate the patient in a.m. Raul Duncan MD
[2017-07-04] MEDS: Pantoprazole 40 mg EC Tab PO SCH (04:59)
[2017-07-04] MEDS: Dexamethasone 4 mg/1 ml IV SCH ×2 (04:59→11:59)
[2017-07-04 06:27] LABS: BASO # 0.01 K/mm3 (0.0-2.0); BASO % 0.1 % (0.0-3.0); GRAN # 15.78 (1.4-6.5); GRAN % 84.8 % (50.0-68.0); HEMATOCRIT 41.8 % (42.0-52.0); LYMPH % 10.7 % (22.0-35.0); MEAN CELL VOLUME 82.8 fl (80.0-105.0); MEAN CORPUSCULAR HEMOGLOBIN 28.5 pg (25.0-35.0); MEAN CORPUSCULAR HGB CONC 34.4 g/dl (31.0-37.0); MEAN PLATELET VOLUME 9.9 fl (7.0-11.0); MONO # 0.8 (0.1-0.6); MONO % 4.4 % (1.0-6.0); RED CELL DISTRIBUTION WIDTH 13.8 % (11.5-14.5); WHITE BLOOD COUNT 18.6 10^3/ul (4.5-11.0)
[2017-07-04 07:02] LABS: BLOOD UREA NITROGEN 16 mg/dL (7-21); CALCIUM 9.4 mg/dL (8.4-10.5); CARBON DIOXIDE 24 mmol/L (21-33); CHLORIDE 108 mmol/L (98-107); GFR AFRICAN-AMERICAN > 60; GLUCOSE,RANDOM 126 mg/dL (70-110); POTASSIUM 4.5 mmol/L (3.6-5.0); SODIUM 140 mmol/L (132-148)
[2017-07-04] MEDS ORDERED: Gadodiamide 287 MG/ML VIAL (15ML) IV ONE (10:11)
[2017-07-04] MEDS: levETIRAcetam 500mg IVPB 500 MG/100 ML BAG IVPB SCH ×2 (11:28→21:47)
--- NOTE | 2017-07-04 12:03 | MRI ---
PROCEDURE: MRI BRAIN WITH AND WITHOUT CONTRAST HISTORY: cerebral mass COMPARISON: CT of the head 07/02/2017 TECHNIQUE: Multiplanar, multisequence MR images of the brain were obtained with and without intravenous contrast enhancement. FINDINGS: HEMORRHAGE: Minimal hemorrhage can be seen within the right parietal lesion DWI: No evidence of an acute or early subacute infarction. BRAIN PARENCHYMA: There is an enhancing mass in the medial aspect of the right parietal lobe measuring a 17 mm height by 17 mm AP x 12 mm wide. There is a large amount of surrounding vasogenic edema. This finding represents either a solitary metastatic lesion or a primary lesion such is astrocytoma or glioblastoma. ENHANCEMENT: As above VENTRICLES: Unremarkable. No hydrocephalus. CRANIUM: Unremarkable. ORBITS: Grossly unremarkable. PARANASAL SINUSES/MASTOIDS: Fluid is seen in the mastoid air cells bilaterally VASCULAR SYSTEM: Skull base flow voids intact. OTHER FINDINGS: None . IMPRESSION: There is an enhancing mass in the medial aspect of the right parietal lobe measuring a 17 mm height by 17 mm AP x 12 mm wide. There is a large amount of surrounding vasogenic edema. This finding represents either a solitary metastatic lesion or a primary lesion such is astrocytoma or glioblastoma.
--- NOTE | 2017-07-04 15:30 | CT ---
PROCEDURE: CT guided left upper lobe lung biopsy. HISTORY: 6 cm left upper lobe lung mass with brain metastasis. Smoker. Evaluate for malignancy. PHYSICIAN(S): Nathaniel Vivas MD. TECHNIQUE: The relative risks and indications of the procedure were explained to the patient and consent obtained. The patient was placed supine on the CT scanner and preliminary images through the upper lungs obtained. Conscious sedation and monitoring were provided throughout the procedure by a nurse. There is a 6 cm noncalcified mass in the left upper lobe anteriorly.. A left anterior approach was selected and the area prepped and draped in the usual sterile fashion. 1% Xylocaine was used to anesthetize the skin and soft tissues. A 19 gauge guiding needle was advanced into the 6 cm left upper lobe lung mass. Its position was confirmed with CT. Using coaxial technique, multiple core biopsies were obtained. The postprocedure images show no evidence of large pneumothorax or significant hemorrhage.. IMPRESSION: 1. CT-guided left upper lobe lung biopsy as described above.
--- NOTE | 2017-07-04 19:55 | PN ---
SUBJECTIVE: The patient is a 57-year-old, seen and examined. Denies any chest pain. Still has left-sided numbness, perioral numbness. No focal deficit. PHYSICAL EXAMINATION: VITAL SIGNS: She is afebrile, pulse 58, respirations 17, blood pressure 131/83. LUNGS: Bilateral good air flow. No rhonchi or crackles. HEART: S1 and S2 audible. ABDOMEN: Soft and nontender. No rebound. No guarding. NEUROLOGIC: The patient is awake, alert, oriented and communicative. LABORATORY EXAM: WBC is 18.6, hemoglobin 14, hematocrit 41 and platelets of 237. Chemistry; sodium 140, potassium 4.5, chloride 108, CO2 of 24, BUN 16, creatinine 0.9 and blood sugar 126. Triglycerides 33, cholesterol 121. MRI of the brain done, it shows there is an enhancing mass in the medial aspect of the right parietal lobe measuring 17 mm height x 17 mm AP and 12 mm wide. There is large amount of surrounding vasogenic edema. ASSESSMENT: 1. Left upper lung mass, probably lung carcinoma with metastasis to the brain. 2. Left hemiparesis. 3. Hypertension. 4. Active smoker. PLAN: We will continue the patient on dexamethasone. He is on Keppra. Start him on metoprolol. I will order for echocardiogram and craniotomy is being arranged for Friday for excision of lesion. Raul Duncan MD
--- NOTE | 2017-07-04 20:55 | CON ---
DATE: HISTORY OF PRESENT ILLNESS: This is a 57-year-old male with past medical history of hypertension, came to the Emergency Room 2 days ago with dizziness, headache, and blurry vision and was sent home and yesterday, he felt funny, numbness, feeling in the left arm and brought back to the Emergency Room. The patient has a history of smoking and hypertension. Called to evaluate the patient. PAST MEDICAL HISTORY: Not significant. SOCIAL HISTORY: Smokes and drinks. PHYSICAL EXAMINATION: HEENT: Normocephalic, atraumatic. NECK: Supple. NEUROLOGIC: Alert, awake and oriented x3. No aphasia. Cranial nerves II-XII were tested. Pupils reactive. EOM intact. Visual cruz full. No facial asymmetry. Tongue midline. Motor examination; spontaneous movement of the extremities noted. Deep tendon reflexes is 1+. Both plantars are downgoing. Sensory appears intact. Cerebellar and gait deferred. The patient's MRI of the head was done, which is suggestive of a brain lesion in right parietal lobe, enhancing mass lesion of the medial aspect of the right parietal lobe with surrounding vasogenic edema and also lung lesion possibly looks like metastatic disease from the lung CA. The patient is going for biopsy of the lungs and workup in progress and continue Decadron. Further management after results of above test. Navid Gan MD
[2017-07-05] MEDS: Dexamethasone 4 mg/1 ml IV SCH ×4 (00:26→17:44)
[2017-07-05] MEDS: Pantoprazole 40 mg EC Tab PO SCH (05:45)
[2017-07-05 07:36] LABS: BASO # 0.01 K/mm3 (0.0-2.0); BASO % 0.1 % (0.0-3.0); EOS % 0.1 % (1.5-5.0); GRAN # 11.24 (1.4-6.5); GRAN % 81.7 % (50.0-68.0); HEMATOCRIT 41.1 % (42.0-52.0); LYMPH # 1.9 (1.2-3.4); LYMPH % 13.8 % (22.0-35.0); MEAN CELL VOLUME 83.7 fl (80.0-105.0); MEAN CORPUSCULAR HEMOGLOBIN 28.5 pg (25.0-35.0); MEAN CORPUSCULAR HGB CONC 34.1 g/dl (31.0-37.0); MONO # 0.6 (0.1-0.6); MONO % 4.3 % (1.0-6.0); RED CELL DISTRIBUTION WIDTH 14.1 % (11.5-14.5); WHITE BLOOD COUNT 13.7 10^3/ul (4.5-11.0)
[2017-07-05 08:30] LABS: BLOOD UREA NITROGEN 20 mg/dL (7-21); CALCIUM 9.2 mg/dL (8.4-10.5); CARBON DIOXIDE 25 mmol/L (21-33); CHLORIDE 103 mmol/L (98-107); GFR AFRICAN-AMERICAN > 60; GLUCOSE,RANDOM 105 mg/dL (70-110); POTASSIUM 4.5 mmol/L (3.6-5.0); SODIUM 136 mmol/L (132-148)
--- NOTE | 2017-07-05 09:01 | RAD ---
HISTORY: lt lung bx COMPARISON: 07/02/2017 FINDINGS: LUNGS: Left upper lobe lung mass. No evidence of pneumothorax PLEURA: No significant pleural effusion identified, no pneumothorax apparent. CARDIOVASCULAR: Normal. OSSEOUS STRUCTURES: No significant abnormalities. VISUALIZED UPPER ABDOMEN: Normal. OTHER FINDINGS: None. IMPRESSION: No evidence of post biopsy pneumothorax
--- NOTE | 2017-07-05 09:06 | CP.PCM.PN ---
Subjective - Date & Time of Evaluation Date of Evaluation: 07/05/17 Time of Evaluation: 09:04 - Subjective Subjective: MRI shows solitary occipital lesion on right discussed this with patient recommended excision of mass explained risks benefits and alternatives he understands and agrees I will also speak to his roommate later but he wishes to processed will sched for friday Objective - Vital Signs/Intake and Output Vital Signs (last 24 hours): Temp Pulse Resp BP Pulse Ox 98.0 F 56 L 20 122/67 96 07/05/17 07:30 07/05/17 07:30 07/05/17 07:30 07/05/17 07:30 07/05/17 07:30 Intake and Output: 07/05/17 07/05/17 06:59 18:59 Intake Total 2500 Output Total 2 Balance 2498 - Medications Medications: Current Medications Acetaminophen (Tylenol 325mg Tab) 650 mg PO Q4 PRN PRN Reason: Pain, Mild (1-3) Dexamethasone (Decadron Inj) 4 mg IV Q6 [facility] Last Admin: 07/05/17 05:49 Dose: 4 mg Levetiracetam (Keppra 500mg Ivpb) 500 mg in 100 mls @ 400 mls/hr IVPB Q12 [facility] Last Admin: 07/04/17 21:47 Dose: 400 mls/hr Meclizine HCl (Antivert) 25 mg PO TID PRN PRN Reason: Dizziness Metoprolol Tartrate (Lopressor) 25 mg PO DAILY [facility] Last Admin: 07/04/17 11:30 Dose: 25 mg Ondansetron HCl (Zofran Inj) 4 mg IVP Q6H PRN PRN Reason: Nausea/Vomiting Pantoprazole Sodium (Protonix Ec Tab) 40 mg PO 0600 [facility] Last Admin: 07/05/17 05:45 Dose: 40 mg - Labs Labs: 07/05/17 07:00 07/05/17 07:00 PT 12.8 SECONDS (9.4-12.5) H 07/02/17 19:10 INR 1.17 (0.93-1.08) H 07/02/17 19:10 APTT 32.7 Seconds (25.1-36.5) 07/02/17 19:10
--- NOTE | 2017-07-05 09:42 | CP.PCM.PN ---
Subjective - Date & Time of Evaluation Date of Evaluation: 07/05/17 Time of Evaluation: 07:10 - Subjective Subjective: Mr Levy is a gentleman with a presumed metastatic lung cancer. His MRI shows a solitary brain metastases. He had a lung biopsy yesterday. The pathology is pending. He feels better since starting on decadron. If he has small cell, he would need whole brain radiation. If he has non-small cell lung cancer, his options including focal treatment such as surgical resection or SRS. Neurosurgery has spoke to him about surgical excision. We are currently awaiting the final lung pathology before we can finalize our recommendation. Objective - Vital Signs/Intake and Output Vital Signs (last 24 hours): Temp Pulse Resp BP Pulse Ox 98.0 F 56 L 20 122/67 96 07/05/17 07:30 07/05/17 07:30 07/05/17 07:30 07/05/17 07:30 07/05/17 07:30 Intake and Output: 07/05/17 07/05/17 06:59 18:59 Intake Total 2500 Output Total 2 Balance 2498 - Medications Medications: Current Medications Acetaminophen (Tylenol 325mg Tab) 650 mg PO Q4 PRN PRN Reason: Pain, Mild (1-3) Dexamethasone (Decadron Inj) 4 mg IV Q6 [facility] Last Admin: 07/05/17 05:49 Dose: 4 mg Levetiracetam (Keppra 500mg Ivpb) 500 mg in 100 mls @ 400 mls/hr IVPB Q12 [facility] Last Admin: 07/04/17 21:47 Dose: 400 mls/hr Meclizine HCl (Antivert) 25 mg PO TID PRN PRN Reason: Dizziness Metoprolol Tartrate (Lopressor) 25 mg PO DAILY [facility] Last Admin: 07/04/17 11:30 Dose: 25 mg Ondansetron HCl (Zofran Inj) 4 mg IVP Q6H PRN PRN Reason: Nausea/Vomiting Pantoprazole Sodium (Protonix Ec Tab) 40 mg PO 0600 [facility] Last Admin: 07/05/17 05:45 Dose: 40 mg - Labs Labs: 07/05/17 07:00 07/05/17 07:00 PT 12.8 SECONDS (9.4-12.5) H 07/02/17 19:10 INR 1.17 (0.93-1.08) H 07/02/17 19:10 APTT 32.7 Seconds (25.1-36.5) 07/02/17 19:10 - Head Exam Head Exam: NORMAL INSPECTION - Respiratory Exam Respiratory Exam: Clear to Ausculation Bilateral - Cardiovascular Exam Cardiovascular Exam: REGULAR RHYTHM - Neurological Exam Neuro motor strength exam: Left Upper Extremity: 4, Right Upper Extremity: 5 Assessment and Plan - Assessment and Plan (Free Text) Assessment: Mr Levy has presumed stage IV lung cancer. He is getting a staging work-up. He had a lung biopsy yesterday. The pathology is pending. Given the solitary lesion in the brain, he may be a good candidate for a local treatment (surgery/ RT) depending on the pathology. We are awaiting the pathology. He is feeling better with the steroids most likely due to the decreased vasogenic edema.
[2017-07-05] MEDS: levETIRAcetam 500mg IVPB 500 MG/100 ML BAG IVPB SCH ×2 (09:54→22:20)
[2017-07-05 10:30] LABS: INR 1.19 (0.93-1.08); PARTIAL THROMBOPLASTIN TIME 27.3 Seconds (25.1-36.5)
--- NOTE | 2017-07-05 14:52 | CON ---
DATE: CARDIOLOGY CONSULT REASON FOR CONSULTATION: Preoperative evaluation. HISTORY OF PRESENT ILLNESS: The patient is a 57-year-old male who has been diagnosed with left upper lung mass with brain metastasis. He is being evaluated for surgery and for that reason Cardiology evaluation was requested. The patient did initially present with left-sided weakness and dizziness and imbalance. The patient denies any speech difficulty. The patient underwent cardiac catheterization in November of this year, which revealed normal coronaries, normal ejection fraction. The patient denies any retrosternal chest pain at this time. SOCIAL HISTORY: The patient is a smoker. MEDICATIONS: Antivert 25 mg t.i.d., Decadron 4 mg intravenously q. 6 hours, Keppra 500 mg intravenously q. 12 hours, Lopressor 25 mg daily, Protonix 40 mg p.o. once a day, Zofran 4 mg intravenously q. 6 hours p.r.n. REVIEW OF SYSTEMS: No grayson syncope. No retrosternal chest pain. No palpitation. No shortness of breath. PHYSICAL EXAMINATION: GENERAL: The patient is a middle-aged male who does not appear to be in acute distress. VITAL SIGNS: Blood pressure 123/57, heart rate 56, temperature 98, and respirations 20. HEENT: Normocephalic. NECK: No JVD. CHEST: Clear. HEART: S1 and S2 regular. ABDOMEN: Soft. EXTREMITIES: No edema. LABORATORY DATA: Today's SMA-7 is entirely within normal limit. TSH level is below normal 0.36. Today's INR is 1.19, PT is 16.1, PTT is 27.3. Today's CBC; WBC 13.7, hemoglobin 14, hematocrit 41.1, platelet count 308,000. DIAGNOSTIC DATA: Brain MRI revealed an enhancing mass in the medial aspect of the right parietal lobe measuring 17 mm x 17 mm x 12 mm. There is large amount of surrounding vasogenic edema and this finding represents either solitary metastatic lesion or a primary lesion. CT lung biopsy was performed and it described a 6 cm noncalcified mass in the left upper lobe anteriorly. EKG revealed normal sinus rhythm. ASSESSMENT: Right upper lung mass with right parietal lobe metastasis with vasogenic edema. CONDITIONS: Continue current Decadron 4 mg intravenously q. 6 hours, Lopressor 25 mg once a day, Zofran 4 mg intravenously q. 6 hours. I would review the echocardiographic study performed today. Case was discussed with Dr. Duncan. Taye Benitez MD
--- NOTE | 2017-07-05 16:08 | PN ---
DATE: SUBJECTIVE: The patient is 57 years old, seen and examined lying in bed, seemed to be comfortable. Left arm numbness, otherwise doing well. PHYSICAL EXAMINATION: VITAL SIGNS: He is afebrile, pulse 56, respirations 20, blood pressure 121/67. LUNGS: Bilateral fair airflow. No rhonchi or crackle. HEART: S1 and S2 audible. ABDOMEN: Soft. Nontender. No rebound. No guarding. NEUROLOGIC: He is awake, alert, oriented, able to communicate. LABORATORY DATA: WBC 13.7, hemoglobin 14, hematocrit 41, platelet of 308. Chemistry: Sodium 136, potassium 4.5, chloride 103, CO2 of 25, BUN 20, creatinine 0.8, blood sugar of 105, TSH 0.36. Echocardiogram is pending. ASSESSMENT: 1. Left upper lung mass with metastasis to the brain. 2. Hypertension. 3. Solitary occipital lesions. 4. Left upper lung mass, CT-guided biopsy. Pathology is pending. PLAN: Get Cardiology evaluation. The patient has cardiac cath done by Dr. Groves in 11/2016 that was normal coronaries, preserved LV function. So, plan is for craniotomy and excision of lesion on Friday. From medical point of view, he is stable to proceed for that procedure. Raul Duncan MD
[2017-07-06] MEDS: Dexamethasone 4 mg/1 ml IV SCH ×6 (06:17→23:31)
[2017-07-06] MEDS: Pantoprazole 40 mg EC Tab PO SCH (06:18)
--- NOTE | 2017-07-06 08:32 | CARD ---
APPROVED REPORT EXAM: Two-dimensional and M-mode echocardiogram with Doppler and color Doppler. Other Information Quality : AverageRhythm : INDICATION DIZZINESS 2D DIMENSIONS Left Atrium (2D)4.2 (1.6-4.0cm)IVSd1.2 (0.7-1.1cm) LVDd4.8 (3.9-5.9cm)PWd1.2 (0.7-1.1cm) LVDs3.4 (2.5-4.0cm)FS (%) 30.4 % LVEF (%)57.0 (>50%) M-Mode DIMENSIONS Aortic Root3.00 (2.2-3.7cm)Aortic Cusp Exc.2.00 (1.5-2.0cm) Aortic Valve AoV Peak Brbqabml434.0cm/s Mitral Valve MV E Eturmrow83.7cm/sMV A Elrisxdu29.4cm/sE/A ratio1.1 TDI E/Lateral E'0.0E/Medial E'0.0 Tricuspid Valve TR Peak [id number]/sRAP [id number] Peak Gr.28mmHg [id number] LEFT VENTRICLE The left ventricle is normal size. There is mild concentric left ventricular hypertrophy. The left ventricular function is normal. The left ventricular ejection fraction is within the normal range. There is normal LV segmental wall motion. RIGHT VENTRICLE The right ventricle is normal size. ATRIA The left atrium is mildly dilated. The right atrium size is normal. The interatrial septum is intact with no evidence for an atrial septal defect. AORTIC VALVE The aortic valve is normal in structure. MITRAL VALVE The mitral valve is normal in structure. TRICUSPID VALVE The tricuspid valve is normal in structure. There is trace to mild tricuspid regurgitation. PULMONIC VALVE The pulmonic valve is not well visualized. GREAT VESSELS The aortic root is normal in size. PERICARDIAL EFFUSION There is no pericardial effusion. <Conclusion> The left ventricle is normal size. There is mild concentric left ventricular hypertrophy. The left ventricular function is normal.
[2017-07-06] MEDS: levETIRAcetam 500mg IVPB 500 MG/100 ML BAG IVPB SCH ×2 (09:36→22:38)
--- NOTE | 2017-07-06 13:06 | PN ---
DATE: SUBJECTIVE: The patient is a 57-year-old, seen and examined, sitting in chair with minimal left-sided weak and numbness, also complained of having withdrawal symptoms from smoking, requesting for some patch. PHYSICAL EXAMINATION: VITAL SIGNS: He is afebrile, pulse 64, respirations 16, and blood pressure 111/65. LUNGS: Bilateral fair airflow. No rhonchi or crackles. HEART: S1 and S2 audible. ABDOMEN: Soft and nontender. No rebound. No guarding. NEUROLOGIC: The patient is awake, alert, oriented, and able to communicate. LABORATORY DATA: WBC is 13.7, hemoglobin 14, hematocrit 41, and platelets of 308. Chemistry: Sodium 136, potassium 4.5, chloride 103, CO2 25, BUN 20, creatinine 0.8, and blood sugar of 105. ASSESSMENT: 1. Left upper lung mass with metastasis to the brain in occipital region. 2. Active smoker. 3. Non-occlusive coronaries. PLAN: I will order him Xanax for tonight. He states he is feeling anxious and want to sleep tonight. I will continue him on steroid. Continue him on Keppra. The patient is scheduled to have surgical intervention done tomorrow. Raul Duncan MD
--- NOTE | 2017-07-06 16:59 | PN ---
SUBJECTIVE: The patient denies any chest pain or shortness of breath. PHYSICAL EXAMINATION: VITAL SIGNS: Blood pressure 111/65, heart rate 64, temperature 97.5, respirations 16. HEENT: Normocephalic. CHEST: Clear. HEART: S1 and S2 regular. ABDOMEN: Soft. EXTREMITIES: No edema. Echocardiograph study revealed normal left ventricular size, mild concentric LVH with normal systolic function. ASSESSMENT: 1. Lung mass. 2. Right parietal lobe metastasis with vasogenic edema. RECOMMENDATIONS: The patient can undergo neurosurgery for his solitary right occipital lobe mass from the cardiac point of view with postoperative telemetry or ICU monitoring with resumption of Lopressor therapy postoperatively. Taye Benitez MD
[2017-07-07] MEDS: Dexamethasone 4 mg/1 ml IV SCH (05:26)
[2017-07-07] MEDS: Pantoprazole 40 mg EC Tab PO SCH (05:26)
[2017-07-07 07:25] LABS: BASO # 0.01 K/mm3 (0.0-2.0); BASO % 0.1 % (0.0-3.0); GRAN # 11.51 (1.4-6.5); GRAN % 82.4 % (50.0-68.0); HEMATOCRIT 42.5 % (42.0-52.0); LYMPH # 1.8 (1.2-3.4); LYMPH % 12.8 % (22.0-35.0); MEAN CELL VOLUME 82.4 fl (80.0-105.0); MEAN CORPUSCULAR HEMOGLOBIN 28.1 pg (25.0-35.0); MEAN CORPUSCULAR HGB CONC 34.1 g/dl (31.0-37.0); MEAN PLATELET VOLUME 9.6 fl (7.0-11.0); MONO # 0.7 (0.1-0.6); MONO % 4.7 % (1.0-6.0); RED CELL DISTRIBUTION WIDTH 13.7 % (11.5-14.5)
[2017-07-07 07:46] LABS: ALB/GLOB RATIO 1.2 (1.1-1.8); ALKALINE PHOSPHATASE 100 U/L (38-126); ALT/SGPT 25 U/L (7-56); AST/SGOT 15 U/L (17-59); BILIRUBIN,TOTAL 0.5 mg/dL (0.2-1.3); BLOOD UREA NITROGEN 20 mg/dL (7-21); CALCIUM 8.9 mg/dL (8.4-10.5); CARBON DIOXIDE 26 mmol/L (21-33); CHLORIDE 103 mmol/L (98-107); GFR AFRICAN-AMERICAN > 60; GLUCOSE,RANDOM 116 mg/dL (70-110); POTASSIUM 4.6 mmol/L (3.6-5.0); SODIUM 136 mmol/L (132-148); TOTAL PROTEIN 6.4 g/dL (5.8-8.3)
[2017-07-07] MEDS: levETIRAcetam 500mg IVPB 500 MG/100 ML BAG IVPB SCH ×2 (09:04→23:20)
[2017-07-07] MEDS ORDERED: Absorbable Gelatin Sponge Size 100 ONE (10:48)
[2017-07-07] MEDS ORDERED: Bacitracin Ointment 30 GM TUBE ONE (10:48)
[2017-07-07] MEDS ORDERED: Thrombin Topical 20,000 Intl Units Spray Kit TOP ONE (10:49)
[2017-07-07] MEDS ORDERED: Lidocaine 1% w Epi 1:100,000 Inj ONE (10:49)
[2017-07-07] MEDS ORDERED: Liquid Adhesive TOP ONE (10:49)
[2017-07-07] MEDS ORDERED: Midazolam 2 MG/2 ML VIAL ONE (11:57)
[2017-07-07] MEDS ORDERED: Propofol 10 mg/ml Inj (20 ML) ONE (11:57)
[2017-07-07] MEDS ORDERED: Vancomycin 1 g Inj ONE (11:58)
[2017-07-07] MEDS ORDERED: Mannitol 12.5 gm/50 ml Inj IV ONE (12:03)
[2017-07-07] MEDS ORDERED: Rocuronium 10 mg/ml (5 ml) ONE (12:04)
--- NOTE | 2017-07-07 12:34 | CP.PCM.PN ---
<Carly Randolph - Last Filed: 07/07/17 17:55> Subjective - Date & Time of Evaluation Date of Evaluation: 07/07/17 Time of Evaluation: 09:00 - Subjective Subjective: PGY-2 Neurology progress note for Dr. Gan's service Patient seen and examined at bedside not acute distress, patient is sleeping comfortably. He denies any right sided weakness, headache, dizziness. Patient is s/p biopsy of lung mass. Objective - Vital Signs/Intake and Output Vital Signs (last 24 hours): Temp Pulse Resp BP Pulse Ox 98.1 F 53 L 18 134/77 97 07/07/17 10:30 07/07/17 10:30 07/07/17 10:30 07/07/17 10:30 07/07/17 10:30 Intake and Output: 07/07/17 07/07/17 06:59 18:59 Intake Total 620 30 Balance 620 30 - Medications Medications: Current Medications Acetaminophen (Tylenol 325mg Tab) 650 mg PO Q4 PRN PRN Reason: Pain, Mild (1-3) Alprazolam (Xanax) 0.5 mg PO HS YRN PRN Reason: Protocol Last Admin: 07/06/17 23:18 Dose: 0.5 mg Dexamethasone (Decadron Inj) 4 mg IV Q6 [facility] Last Admin: 07/07/17 05:26 Dose: 4 mg Levetiracetam (Keppra 500mg Ivpb) 500 mg in 100 mls @ 400 mls/hr IVPB Q12 [facility] Last Admin: 07/07/17 09:04 Dose: 400 mls/hr Meclizine HCl (Antivert) 25 mg PO TID PRN PRN Reason: Dizziness Metoprolol Tartrate (Lopressor) 25 mg PO DAILY [facility] Last Admin: 07/07/17 08:28 Dose: 25 mg Nicotine (Nicoderm Cq) 1 patch TD DAILY [facility] Last Admin: 07/07/17 09:47 Dose: Not Given Ondansetron HCl (Zofran Inj) 4 mg IVP Q6H PRN PRN Reason: Nausea/Vomiting Pantoprazole Sodium (Protonix Ec Tab) 40 mg PO 0600 [facility] Last Admin: 07/07/17 05:26 Dose: Not Given - Labs Labs: 07/07/17 07:00 07/07/17 07:00 PT 13.1 SECONDS (9.4-12.5) H 07/05/17 09:40 INR 1.19 (0.93-1.08) H 07/05/17 09:40 APTT 27.3 Seconds (25.1-36.5) 07/05/17 09:40 - Constitutional Appears: No Acute Distress - Head Exam Head Exam: ATRAUMATIC, NORMAL INSPECTION, NORMOCEPHALIC - Eye Exam Eye Exam: EOMI, Normal appearance - ENT Exam ENT Exam: Mucous Membranes Moist - Respiratory Exam Respiratory Exam: Clear to Ausculation Bilateral, NORMAL BREATHING PATTERN. absent: Rhonchi, Wheezes, Respiratory Distress - Cardiovascular Exam Cardiovascular Exam: REGULAR RHYTHM. absent: Tachycardia, Murmur - GI/Abdominal Exam GI & Abdominal Exam: Soft, Normal Bowel Sounds. absent: Tenderness - Extremities Exam Extremities Exam: Normal Inspection - Neurological Exam Neurological Exam: Alert, Awake, Oriented x3 Neuro motor strength exam: Left Upper Extremity: 5, Right Upper Extremity: 5, Left Lower Extremity: 5, Right Lower Extremity: 5 - Skin Skin Exam: Dry, Intact, Normal Color, Warm Assessment and Plan - Assessment and Plan (Free Text) Assessment: 57 yo male with PMH of HTN presented with headache, dizziness found to have brain lesion in right parietal lobe most likely due to lung Ca. 1. brain lesion 2. lung mass, poss Ca 3. HTN - Head CT showed lesion of right occipital lobe and smaller areas of edema in left frontal and parietal lobes - CTA showed no occlusion or acute abnormality of major intracranial or neck arteries, large spiculated mass left lung apex - brain MRI- mass in right parietal lobe - s/p biopsy of lung mass - s/p craniotomy - continue decadron - keppra 500mg for seizure prophylaxis - defer most medical management to rad/onc case reviewed and discussed with Dr. Gan <Chente Gan - Last Filed: 07/07/17 22:00> Objective - Vital Signs/Intake and Output Vital Signs (last 24 hours): Temp Pulse Resp BP Pulse Ox 97.8 F 56 L 18 99/39 L 96 07/07/17 20:00 07/07/17 21:20 07/07/17 21:20 07/07/17 21:02 07/07/17 21:20 Intake and Output: 07/07/17 07/08/17 18:59 06:59 Intake Total 1130 Output Total 550 Balance 580 - Medications Medications: Current Medications Acetaminophen (Tylenol 325mg Tab) 650 mg PO Q4 PRN PRN Reason: Pain, Mild (1-3) Alprazolam (Xanax) 0.5 mg PO HS YRN PRN Reason: Protocol Last Admin: 07/06/17 23:18 Dose: 0.5 mg Dexamethasone (Decadron Inj) 10 mg IVP Q6 [facility] Stop: 07/08/17 12:01 Last Admin: 07/07/17 17:58 Dose: 10 mg Dexamethasone (Decadron Inj) 4 mg IVP Q6 [facility] Levetiracetam (Keppra 500mg Ivpb) 500 mg in 100 mls @ 400 mls/hr IVPB Q12 [facility] Last Admin: 07/07/17 09:04 Dose: 400 mls/hr Mannitol (Mannitol) 12.5 gm IV Q6H [facility] Stop: 07/08/17 12:01 Last Admin: 07/07/17 17:57 Dose: 12.5 gm Mannitol (Mannitol) 12.5 gm IV Q8H [facility] Stop: 07/09/17 12:01 Mannitol (Mannitol) 12.5 gm IV Q12H [facility] Stop: 07/10/17 12:00 Meclizine HCl (Antivert) 25 mg PO TID PRN PRN Reason: Dizziness Metoprolol Tartrate (Lopressor) 25 mg PO DAILY [facility] Last Admin: 07/07/17 08:28 Dose: 25 mg Morphine Sulfate (Morphine) 2 mg IVP Q4H PRN PRN Reason: Other Last Admin: 07/07/17 20:30 Dose: 2 mg Nicotine (Nicoderm Cq) 1 patch TD DAILY [facility] Last Admin: 07/07/17 09:47 Dose: Not Given Ondansetron HCl (Zofran Inj) 4 mg IVP Q6H PRN PRN Reason: Nausea/Vomiting Oxycodone/Acetaminophen (Percocet 5/325 Mg Tab) 1 tab PO Q4H PRN PRN Reason: Pain, Mild (1-3) Stop: 07/10/17 14:19 Pantoprazole Sodium (Protonix Ec Tab) 40 mg PO 0600 [facility] Last Admin: 07/07/17 05:26 Dose: Not Given - Labs Labs: 07/07/17 07:00 07/07/17 07:00 PT 13.1 SECONDS (9.4-12.5) H 07/05/17 09:40 INR 1.19 (0.93-1.08) H 07/05/17 09:40 APTT 27.3 Seconds (25.1-36.5) 07/05/17 09:40 Attending/Attestation - Attestation I have personally seen and examined this patient.: Yes I have fully participated in the care of the patient.: Yes I have reviewed all pertinent clinical information, including history, physical exam and plan: Yes
[2017-07-07] MEDS ORDERED: Neostigmine Methylsulfate 3mg/3ml Syringe IV ONE (13:02)
[2017-07-07] MEDS ORDERED: Glycopyrrolate 0.2 mg/ml (2ml vial) ONE (13:02)
[2017-07-07] MEDS ORDERED: HYDROmorphone 0.5 mg/0.5 ml ISec IVP ONE (14:12)
[2017-07-07] MEDS ORDERED: Oxycodone/Acetaminophen 5/325 mg Tab PO PRN (14:18)
[2017-07-07] MEDS ORDERED: HYDROmorphone 0.5 mg/0.5 ml ISec ONE (14:29)
[2017-07-07] MEDS ORDERED: HYDROmorphone 0.5 mg/0.5 ml ISec IVP STA (14:43)
--- NOTE | 2017-07-07 14:51 | CP.PCM.CON ---
History of Present Illness - History of Present Illness History of Present Illness: ICU consult note. Dr. Jordan 57yo M with PMHx of HTN, COPD, extensive smoking history admitted to the hospital with acute left sided paresthesias and headaches. Hospital work-up revealed a lesion in the right Past Patient History - Infectious Disease Hx of Infectious Diseases: None - Past Social History Smoking Status: Heavy Smoker > 10 Cigarettes Daily - CARDIAC Hx Cardiac Disorders: Yes (chest pain) Hx Hypercholesterolemia: Yes Hx Hypertension: Yes - PULMONARY Hx Respiratory Disorders: Yes Hx Emphysema: Yes Other/Comment: URI - NEUROLOGICAL Hx Neurological Disorder: Yes Hx Dizziness: Yes (vertigo) Other/Comment: headaches on and off x 2 weeks - HEENT Hx HEENT Problems: Yes (sinus congestion) Other/Comment: recent impaired vision r eye blurred, having prioblems with periphral vision and feels like right eye is crossed when following finger - RENAL Hx Chronic Kidney Disease: No - ENDOCRINE/METABOLIC Hx Endocrine Disorders: No - HEMATOLOGICAL/ONCOLOGICAL Hx Blood Transfusions: No Hx Blood Transfusion Reaction: No - INTEGUMENTARY Hx Dermatological Problems: No - MUSCULOSKELETAL/RHEUMATOLOGICAL Hx Musculoskeletal Disorders: Yes Hx Back Pain: Yes (sciatica) Hx Falls: Yes (fell today in ct scan) Hx Unsteady Gait: Yes (off balance) Other/Comment: lumbar radiculopathy, fell today 07/02/[address] scan stood up at side of bed to void in urinal and fell - GASTROINTESTINAL Other/Comment: egc/colonoscopy 10/28/16 pre op dx was dysphagia- post op dx duodenitis, duodenal ulcer, erosive gastritis, r/o h pylori, polyp, diverticulosis, hemorrhoids - GENITOURINARY/GYNECOLOGICAL Hx Genitourinary Disorders: No - PSYCHIATRIC Hx Emotional Abuse: No Hx Physical Abuse: No - SURGICAL HISTORY Hx Surgeries: Yes (4th toe on left foot) - ANESTHESIA Hx Anesthesia Reactions: No Hx Malignant Hyperthermia: No Meds Allergies/Adverse Reactions: Allergies Allergy/AdvReac Type Severity Reaction Status Date / Time No Known Allergies Allergy Verified 07/02/17 18:52 - Medications Medications: Current Medications Acetaminophen (Tylenol 325mg Tab) 650 mg PO Q4 PRN PRN Reason: Pain, Mild (1-3) Alprazolam (Xanax) 0.5 mg PO HS YRN PRN Reason: Protocol Last Admin: 07/06/17 23:18 Dose: 0.5 mg Dexamethasone (Decadron Inj) 4 mg IV Q6 [facility] Last Admin: 07/07/17 05:26 Dose: 4 mg Levetiracetam (Keppra 500mg Ivpb) 500 mg in 100 mls @ 400 mls/hr IVPB Q12 [facility] Last Admin: 07/07/17 09:04 Dose: 400 mls/hr Meclizine HCl (Antivert) 25 mg PO TID PRN PRN Reason: Dizziness Metoprolol Tartrate (Lopressor) 25 mg PO DAILY [facility] Last Admin: 07/07/17 08:28 Dose: 25 mg Morphine Sulfate (Morphine) 2 mg IVP Q4H PRN PRN Reason: Other Nicotine (Nicoderm Cq) 1 patch TD DAILY [facility] Last Admin: 07/07/17 09:47 Dose: Not Given Ondansetron HCl (Zofran Inj) 4 mg IVP Q6H PRN PRN Reason: Nausea/Vomiting Oxycodone/Acetaminophen (Percocet 5/325 Mg Tab) 1 tab PO Q4H PRN PRN Reason: Pain, Mild (1-3) Stop: 07/10/17 14:19 Pantoprazole Sodium (Protonix Ec Tab) 40 mg PO 0600 [facility] Last Admin: 07/07/17 05:26 Dose: Not Given Results - Vital Signs Recent Vital Signs: Last Vital Signs Temp 98 F 07/07/17 14:20 Pulse 58 L 07/07/17 14:20 Resp 18 07/07/17 14:20 BP 169/90 H 07/07/17 14:20 Pulse Ox 99 07/07/17 14:20 - Labs Result Diagrams: 07/07/17 07:00 07/07/17 07:00 Labs: Laboratory Results - last 24 hr 07/07/17 07/07/17 07/07/17 07:00 07:00 10:20 WBC 14.0 H RBC 5.16 Hgb 14.5 Hct 42.5 MCV 82.4 MCH 28.1 MCHC 34.1 RDW 13.7 Plt Count 325 MPV 9.6 Gran % 82.4 H Lymph % (Auto) 12.8 L [place] % (Auto) 4.7 Eos % (Auto) 0.0 L Baso % (Auto) 0.1 Gran # 11.51 H Lymph # 1.8 [place] # 0.7 H Eos # 0.0 Baso # 0.01 Sodium 136 Potassium 4.6 Chloride 103 Carbon Dioxide 26 Anion Gap 12 BUN 20 Creatinine 0.7 L Est GFR ( Amer) > 60 Est GFR (Non-Af Amer) > 60 Random Glucose 116 H Calcium 8.9 Total Bilirubin 0.5 AST 15 L ALT 25 Alkaline Phosphatase 100 Total Protein 6.4 Albumin 3.5 Globulin 3.0 Albumin/Globulin Ratio 1.2 Blood Type O POSITIVE Antibody Screen Negative BBK History Checked Patient has bt
--- NOTE | 2017-07-07 15:05 | CP.CCUPN ---
<Rogers Snell - Last Filed: 07/07/17 15:00> CCU Subjective - Physician Review Events Since Last Encounter (Free Text): 07/07/17 15:[address] Jordan ICU re-consulted s/p craniotomy. Patient seen and evaluated in the PACU. Patient resting comfortably. States that he is uncomfortable because he has a cough and feels like he has to urinate. He was unable to understand that he has a urinary catheter. Denies any other complaints. States that he is hungry. CCU Objective - Vital Signs / Intake & Output Vital Signs (Last 4 hours): Vital Signs Temp Pulse Resp BP Pulse Ox 07/07/17 14:35 98 F 58 L 18 167/92 H 99 07/07/17 14:20 98 F 58 L 18 169/90 H 99 07/07/17 14:05 98 F 86 18 175/88 H 99 Intake and Output (Last 8hrs): Intake & Output 07/07/17 07/07/17 07/07/17 06:59 14:59 22:59 Intake Total 30 Balance 30 Intake: IV 30 - Physical Exam Head: Positive for: Atraumatic, Normocephalic, Other (Dressing to posterior scalp in tact. ) Pupils: Positive for: PERRL Extroacular Muscles: Positive for: EOMI Conjunctiva: Positive for: Normal Mouth: Positive for: Moist Mucous Membranes Neck: Positive for: Normal Range of Motion Respiratory/Chest: Positive for: Clear to Auscultation, Good Air Exchange. Negative for: Respiratory Distress, Accessory Muscle Use Cardiovascular: Positive for: Regular Rate and Rhythm, Normal S1, S2 Abdomen: Positive for: Normal Bowel Sounds. Negative for: Tenderness, Distention, Peritoneal Signs Back: Positive for: Normal Inspection Upper Extremity: Positive for: Normal Inspection. Negative for: Cyanosis, Edema Lower Extremity: Positive for: Normal Inspection. Negative for: Edema Neurological: Positive for: GCS=15, Speech Normal, Motor Func Grossly Intact Skin: Positive for: Warm, Dry, Normal Color. Negative for: Rashes Psychiatric: Positive for: Alert, Oriented x 3, Normal Insight, Normal Concentration - Medications Active Medications: Active Medications Generic Name Dose Route Start Last Admin Trade Name Freq PRN Reason Stop Dose Admin Acetaminophen 650 mg 07/04/17 15:04 Tylenol 325mg Tab PO Q4 PRN Pain, Mild (1-3) Alprazolam 0.5 mg 07/06/17 22:00 07/06/17 23:18 Xanax PO 0.5 mg HS YRN Administration Protocol Dexamethasone 10 mg 07/07/17 18:00 Decadron Inj IVP 07/08/17 12:01 Q6 YRN Dexamethasone 4 mg 07/08/17 18:00 Decadron Inj IVP Q6 YRN Levetiracetam 500 mg in 100 mls @ 400 mls/hr 07/02/17 22:00 07/07/17 09:04 Keppra 500mg Ivpb IVPB 400 mls/hr Q12 YRN Administration Mannitol 12.5 gm 07/07/17 18:00 Mannitol IV 07/08/17 12:01 Q6H YRN Mannitol 12.5 gm 07/08/17 20:00 Mannitol IV 07/09/17 12:01 Q8H YRN Mannitol 12.5 gm 07/09/17 23:59 Mannitol IV 07/10/17 12:00 Q12H [facility] Meclizine HCl 25 mg 07/02/17 23:30 Antivert PO TID PRN Dizziness Metoprolol Tartrate 25 mg 07/03/17 10:00 07/07/17 08:28 Lopressor PO 25 mg DAILY [facility] Administration Morphine Sulfate 2 mg 07/07/17 14:17 Morphine IVP Q4H PRN Other Nicotine 1 patch 07/06/17 10:00 07/07/17 09:47 Nicoderm Cq TD Not Given DAILY [facility] Ondansetron HCl 4 mg 07/04/17 15:04 Zofran Inj IVP Q6H PRN Nausea/Vomiting Oxycodone/Acetaminophen 1 tab 07/07/17 14:18 Percocet 5/325 Mg Tab PO 07/10/17 14:19 Q4H PRN Pain, Mild (1-3) Pantoprazole Sodium 40 mg 07/03/17 06:00 07/07/17 05:26 Protonix Ec Tab PO Not Given 0600 [facility] - Patient Studies Lab Studies: Lab Studies 07/07/17 07/07/17 07/07/17 Range/Units 10:20 07:00 07:00 WBC 14.0 H (4.5-11.0) 10^3/ul RBC 5.16 (3.5-6.1) 10^6/uL Hgb 14.5 (14.0-18.0) g/dL Hct 42.5 (42.0-52.0) % MCV 82.4 (80.0-105.0) fl MCH 28.1 (25.0-35.0) pg MCHC 34.1 (31.0-37.0) g/dl RDW 13.7 (11.5-14.5) % Plt Count 325 (120.0-450.0) 10^3/uL MPV 9.6 (7.0-11.0) fl Gran % 82.4 H (50.0-68.0) % Lymph % (Auto) 12.8 L (22.0-35.0) % [place] % (Auto) 4.7 (1.0-6.0) % Eos % (Auto) 0.0 L (1.5-5.0) % Baso % (Auto) 0.1 (0.0-3.0) % Gran # 11.51 H (1.4-6.5) Lymph # 1.8 (1.2-3.4) Sch[place] # 0.7 H (0.1-0.6) Eos # 0.0 (0.0-0.7) Baso # 0.01 (0.0-2.0) K/mm3 Sodium 136 (132-148) mmol/L Potassium 4.6 (3.6-5.0) mmol/L Chloride 103 (98-107) mmol/L Carbon Dioxide 26 (21-33) mmol/L Anion Gap 12 (10-20) BUN 20 (7-21) mg/dL Creatinine 0.7 L (0.8-1.5) mg/dl Est GFR ( Amer) > 60 Est GFR (Non-Af Amer) > 60 Random Glucose 116 H (70-110) mg/dL Calcium 8.9 (8.4-10.5) mg/dL Total Bilirubin 0.5 (0.2-1.3) mg/dL AST 15 L (17-59) U/L ALT 25 (7-56) U/L Alkaline Phosphatase 100 (38-126) U/L Total Protein 6.4 (5.8-8.3) g/dL Albumin 3.5 (3.0-4.8) g/dL Globulin 3.0 gm/dL Albumin/Globulin Ratio 1.2 (1.1-1.8) Blood Type O POSITIVE Antibody Screen Negative BBK History Checked Patient has bt Laboratory Results - last 24 hr 07/07/17 07/07/17 07/07/17 07:00 07:00 10:20 WBC 14.0 H RBC 5.16 Hgb 14.5 Hct 42.5 MCV 82.4 MCH 28.1 MCHC 34.1 RDW 13.7 Plt Count 325 MPV 9.6 Gran % 82.4 H Lymph % (Auto) 12.8 L [place] % (Auto) 4.7 Eos % (Auto) 0.0 L Baso % (Auto) 0.1 Gran # 11.51 H Lymph # 1.8 [place] # 0.7 H Eos # 0.0 Baso # 0.01 Sodium 136 Potassium 4.6 Chloride 103 Carbon Dioxide 26 Anion Gap 12 BUN 20 Creatinine 0.7 L Est GFR ( Amer) > 60 Est GFR (Non-Af Amer) > 60 Random Glucose 116 H Calcium 8.9 Total Bilirubin 0.5 AST 15 L ALT 25 Alkaline Phosphatase 100 Total Protein 6.4 Albumin 3.5 Globulin 3.0 Albumin/Globulin Ratio 1.2 Blood Type O POSITIVE Antibody Screen Negative BBK History Checked Patient has bt Fingerstick Blood Sugar Results: 123 Assessment/Plan - Assessment and Plan (Free Text) Assessment: 57yo M with PMHx of COPD, extensive smoking history presented to the hospital on 07/02 for left sided paresthesias. Found to have a right occipital brain lesion and lung mass. Lung Mass was bx on 07/04, path pending. Patient is now s/ p craniotomy by Neurosurg. - Mannitol 12.5 q6h x4 doses, 12.5g q8h x3 doses, 12.5g q12h x2 doses - Decadron 10mg q6h x4 then 4mg q6h - Continue home meds - Heart healthy diet - Neurochecks - Vitals q2 - Continue mcdonald - Strict I&Os Discussed case with Dr. Julian Snell PGY1 <Ori Jordan - Last Filed: 07/07/17 15:42> CCU Objective - Vital Signs / Intake & Output Vital Signs (Last 4 hours): Vital Signs Temp Pulse Resp BP Pulse Ox 07/07/17 14:50 98 F 58 L 18 157/90 H 99 07/07/17 14:35 98 F 58 L 18 167/92 H 99 07/07/17 14:20 98 F 58 L 18 169/90 H 99 07/07/17 14:05 98 F 86 18 175/88 H 99 Intake and Output (Last 8hrs): Intake & Output 07/07/17 07/07/17 07/07/17 06:59 14:59 22:59 Intake Total 30 760 Balance 30 760 Intake: IV 30 Oral 760 - Medications Active Medications: Active Medications Generic Name Dose Route Start Last Admin Trade Name Freq PRN Reason Stop Dose Admin Acetaminophen 650 mg 07/04/17 15:04 Tylenol 325mg Tab PO Q4 PRN Pain, Mild (1-3) Alprazolam 0.5 mg 07/06/17 22:00 07/06/17 23:18 Xanax PO 0.5 mg HS YRN Administration Protocol Dexamethasone 10 mg 07/07/17 18:00 Decadron Inj IVP 07/08/17 12:01 Q6 YRN Dexamethasone 4 mg 07/08/17 18:00 Decadron Inj IVP Q6 YRN Levetiracetam 500 mg in 100 mls @ 400 mls/hr 07/02/17 22:00 07/07/17 09:04 Keppra 500mg Ivpb IVPB 400 mls/hr Q12 YRN Administration Mannitol 12.5 gm 07/07/17 18:00 Mannitol IV 07/08/17 12:01 Q6H YRN Mannitol 12.5 gm 07/08/17 20:00 Mannitol IV 07/09/17 12:01 Q8H YRN Mannitol 12.5 gm 07/09/17 23:59 Mannitol IV 07/10/17 12:00 Q12H YRN Meclizine HCl 25 mg 07/02/17 23:30 Antivert PO TID PRN Dizziness Metoprolol Tartrate 25 mg 07/03/17 10:00 07/07/17 08:28 Lopressor PO 25 mg DAILY YRN Administration Morphine Sulfate 2 mg 07/07/17 14:17 Morphine IVP Q4H PRN Other Nicotine 1 patch 07/06/17 10:00 07/07/17 09:47 Nicoderm Cq TD Not Given DAILY [facility] Ondansetron HCl 4 mg 07/04/17 15:04 Zofran Inj IVP Q6H PRN Nausea/Vomiting Oxycodone/Acetaminophen 1 tab 07/07/17 14:18 Percocet 5/325 Mg Tab PO 07/10/17 14:19 Q4H PRN Pain, Mild (1-3) Pantoprazole Sodium 40 mg 07/03/17 06:00 07/07/17 05:26 Protonix Ec Tab PO Not Given 0600 [facility] - Patient Studies Lab Studies: Lab Studies 07/07/17 07/07/17 07/07/17 Range/Units 10:20 07:00 07:00 WBC 14.0 H (4.5-11.0) 10^3/ul RBC 5.16 (3.5-6.1) 10^6/uL Hgb 14.5 (14.0-18.0) g/dL Hct 42.5 (42.0-52.0) % MCV 82.4 (80.0-105.0) fl MCH 28.1 (25.0-35.0) pg MCHC 34.1 (31.0-37.0) g/dl RDW 13.7 (11.5-14.5) % Plt Count 325 (120.0-450.0) 10^3/uL MPV 9.6 (7.0-11.0) fl Gran % 82.4 H (50.0-68.0) % Lymph % (Auto) 12.8 L (22.0-35.0) % [place] % (Auto) 4.7 (1.0-6.0) % Eos % (Auto) 0.0 L (1.5-5.0) % Baso % (Auto) 0.1 (0.0-3.0) % Gran # 11.51 H (1.4-6.5) Lymph # 1.8 (1.2-3.4) [place] # 0.7 H (0.1-0.6) Eos # 0.0 (0.0-0.7) Baso # 0.01 (0.0-2.0) K/mm3 Sodium 136 (132-148) mmol/L Potassium 4.6 (3.6-5.0) mmol/L Chloride 103 (98-107) mmol/L Carbon Dioxide 26 (21-33) mmol/L Anion Gap 12 (10-20) BUN 20 (7-21) mg/dL Creatinine 0.7 L (0.8-1.5) mg/dl Est GFR ( Amer) > 60 Est GFR (Non-Af Amer) > 60 Random Glucose 116 H (70-110) mg/dL Calcium 8.9 (8.4-10.5) mg/dL Total Bilirubin 0.5 (0.2-1.3) mg/dL AST 15 L (17-59) U/L ALT 25 (7-56) U/L Alkaline Phosphatase 100 (38-126) U/L Total Protein 6.4 (5.8-8.3) g/dL Albumin 3.5 (3.0-4.8) g/dL Globulin 3.0 gm/dL Albumin/Globulin Ratio 1.2 (1.1-1.8) Blood Type O POSITIVE Antibody Screen Negative BBK History Checked Patient has bt Laboratory Results - last 24 hr 07/07/17 07/07/17 07/07/17 07:00 07:00 10:20 WBC 14.0 H RBC 5.16 Hgb 14.5 Hct 42.5 MCV 82.4 MCH 28.1 MCHC 34.1 RDW 13.7 Plt Count 325 MPV 9.6 Gran % 82.4 H Lymph % (Auto) 12.8 L [place] % (Auto) 4.7 Eos % (Auto) 0.0 L Baso % (Auto) 0.1 Gran # 11.51 H Lymph # 1.8 [place] # 0.7 H Eos # 0.0 Baso # 0.01 Sodium 136 Potassium 4.6 Chloride 103 Carbon Dioxide 26 Anion Gap 12 BUN 20 Creatinine 0.7 L Est GFR ( Amer) > 60 Est GFR (Non-Af Amer) > 60 Random Glucose 116 H Calcium 8.9 Total Bilirubin 0.5 AST 15 L ALT 25 Alkaline Phosphatase 100 Total Protein 6.4 Albumin 3.5 Globulin 3.0 Albumin/Globulin Ratio 1.2 Blood Type O POSITIVE Antibody Screen Negative BBK History Checked Patient has bt Assessment/Plan - Assessment and Plan (Free Text) Assessment: 15:38Patient seen and examined, with resident, agree with note with following additions/exceptions: 57yo male with PMhx COPD, smoker, presented with lung mass and brain lesion, s/ p Lung biopsy and brain mass excision, tolerated the procedure well. Currently afebrile, HD stable, comfortable, awake, alert, NAD. Brain Mass s/p excision Lung Mass s/p biopsy COPD Recommend: - Mannitol as per NSG - Decadron IV 4mg Q6hr - FS control - resume diet - Neurochecks - monitor UOP - Mcdonald - GI ppx - DVT ppx - Monitor in MICU
[2017-07-07] MEDS: Morphine 2 mg/ml ISec IVP PRN ×2 (16:04→20:30)
--- NOTE | 2017-07-07 17:53 | PN ---
DATE: 07/07/2017 REASON FOR CONSULTATION: History of coronary artery disease admitted with a lung mass with possible mets to the brain and cardiac evaluation. SUBJECTIVE: The patient denies any chest pain, shortness of breath, or any palpitation. OBJECTIVE: Not in apparent distress, lying flat on the bed. PHYSICAL EXAMINATION: As follows; VITAL SIGNS: Temperature afebrile, heart rate 83, blood pressure 134/77. HEENT: PERRLA intact. NECK: Supple. No carotid bruit or thyromegaly. CHEST: Clear to auscultation. HEART: S1 and S2 regular. ABDOMEN: Soft. EXTREMITIES: Clubbing and cyanosis negative. LABORATORY DATA: Blood workup as follows. WBC is 14, hemoglobin is 14.5, hematocrit is 42.5, and platelet count of 325. Chemistry shows sodium 130, potassium 4.6, chloride 103, carbon dioxide 26, anion gap of 12, BUN 20, creatinine 0.7. IMPRESSION: History of coronary artery disease, status post ; history of cardiac catheterization because of the abnormal stress test 12/05/2016; normal coronaries, preserved LV function, ejection fraction 55% to 60%. When compared from the previous film 12/04/2006, no significant change noted from most recent cath in 12/05/2016. History of left upper lobe mass, possible metastasis to the occipital lobe after tobacco abuse, normal coronaries. Most recent echo dated 07/05/2017, shows normal LV size, concentric LVH, normal LV function, normal mitral valve, normal tricuspid valve structure noted, [id number] tricuspid regurgitation. RECOMMENDATIONS: The patient is cleared to go from cardiac point of view for craniotomy if needed. We will follow with you. Thank you for providing us the opportunity in taking care of the patient, Peter Levy. No absolute contraindication. Ifeanyi Groves MD
[2017-07-07] MEDS: Mannitol 12.5 gm/50 ml Inj IV SCH (17:57)
--- NOTE | 2017-07-07 23:27 | PN ---
DATE: SUBJECTIVE: The patient is 57-year-old, seen and examined, sleepy, but arousable. PHYSICAL EXAMINATION: VITAL SIGNS: The patient is afebrile, pulse 54, respirations 15, and blood pressure 156/71. LUNGS: Bilateral fair airflow. No rhonchi or crackle. HEART: S1 and S2 audible. ABDOMEN: Soft and nontender. No rebound. No guarding. NEUROLOGIC: He is sleepy, but arousable. LABORATORY DATA: WBC is 14, hemoglobin 14.5, hematocrit is 42.5, and platelets 325. Chemistry: Sodium 136, potassium 4.6, chloride 103, CO2 of 26, BUN 20, creatinine 0.7, and blood sugar of 116. ASSESSMENT: 1. Status post craniotomy and right occipital tumor excision. 2. Left upper lung cancer. 3. History of hypertension. PLAN: The patient is getting steroids. He is on antiseizure medication. He is on mannitol. He has been started on nicotine patch and analgesic as needed. We will follow up the patient in a.m. Raul Duncan MD
[2017-07-08] MEDS: Mannitol 12.5 gm/50 ml Inj IV SCH ×4 (00:05→20:48)
[2017-07-08] MEDS: Morphine 2 mg/ml ISec IVP PRN ×2 (01:01→22:05)
[2017-07-08] MEDS: Pantoprazole 40 mg EC Tab PO SCH (06:45)
[2017-07-08 07:23] LABS: BASO # 0.01 K/mm3 (0.0-2.0); BASO % 0.1 % (0.0-3.0); GRAN # 15.58 (1.4-6.5); GRAN % 85.9 % (50.0-68.0); HEMATOCRIT 43.3 % (42.0-52.0); LYMPH # 1.5 (1.2-3.4); LYMPH % 8.5 % (22.0-35.0); MEAN CELL VOLUME 82.3 fl (80.0-105.0); MEAN CORPUSCULAR HEMOGLOBIN 28.5 pg (25.0-35.0); MEAN CORPUSCULAR HGB CONC 34.6 g/dl (31.0-37.0); MONO % 5.5 % (1.0-6.0); RED CELL DISTRIBUTION WIDTH 13.6 % (11.5-14.5); WHITE BLOOD COUNT 18.1 10^3/ul (4.5-11.0)
[2017-07-08 08:00] LABS: ALB/GLOB RATIO 1.2 (1.1-1.8); ALKALINE PHOSPHATASE 87 U/L (38-126); ALT/SGPT 27 U/L (7-56); AST/SGOT 16 U/L (17-59); BILIRUBIN,TOTAL 0.6 mg/dL (0.2-1.3); BLOOD UREA NITROGEN 23 mg/dL (7-21); CALCIUM 8.9 mg/dL (8.4-10.5); CARBON DIOXIDE 26 mmol/L (21-33); CHLORIDE 98 mmol/L (98-107); GFR AFRICAN-AMERICAN > 60; GLUCOSE,RANDOM 107 mg/dL (70-110); MAGNESIUM 2.3 mg/dL (1.7-2.2); PHOSPHOROUS 3.8 mg/dL (2.5-4.5); POTASSIUM 4.7 mmol/L (3.6-5.0); SODIUM 135 mmol/L (132-148); TOTAL PROTEIN 6.7 g/dL (5.8-8.3)
--- NOTE | 2017-07-08 08:20 | CP.CCUPN ---
<Bonifacio Ascencio - Last Filed: 07/08/17 10:09> CCU Subjective - Physician Review Subjective (Free Text): Critical care progress note - Altagracia Ascencio PGY2 Patient seen and examined at bedside this morning. No acute overnight events or new complaints reported. He was resting comfortably in bed and denied any focal weakness, numbness, tingling. Craniotomy site clean, dry and intact. Will continue with decadron and mannitol taper as ordered. Patient denied chest pain , palpitations, SOB. Currently POD #1. CCU Objective - Vital Signs / Intake & Output Vital Signs (Last 4 hours): Vital Signs Temp Pulse Resp BP Pulse Ox 07/08/17 08:00 139/35 L 07/08/17 07:59 73 19 96 07/08/17 07:50 70 22 94 L 07/08/17 07:40 60 20 95 07/08/17 07:30 71 15 95 07/08/17 07:20 82 16 96 07/08/17 07:10 56 L 12 96 07/08/17 07:00 55 L 14 124/61 94 L 07/08/17 06:50 61 97 07/08/17 06:40 52 L 14 94 L 07/08/17 06:30 52 L 13 94 L 07/08/17 06:20 63 13 96 07/08/17 06:10 51 L 13 94 L 07/08/17 06:00 50 L 13 109/55 L 94 L 07/08/17 05:50 51 L 12 95 07/08/17 05:40 50 L 14 94 L 07/08/17 05:30 52 L 16 94 L 07/08/17 05:20 60 18 96 07/08/17 05:10 52 L 15 96 07/08/17 05:00 98.2 F 65 22 93/42 L 96 07/08/17 04:59 51 L 12 96 07/08/17 04:50 49 L 16 97 07/08/17 04:40 48 L 15 96 07/08/17 04:30 50 L 14 96 07/08/17 04:20 50 L 18 96 Intake and Output (Last 8hrs): Intake & Output 07/07/17 07/08/17 07/08/17 22:59 06:59 14:59 Intake Total 1100 1300 Output Total 350 1900 Balance 750 -600 Intake: IV 100 100 Left Antecubital 100 100 Oral 1000 1200 Output: Urine 350 1900 Urine, Voided 350 1900 Other: # Bowel Movements 0 - Physical Exam Head: Positive for: Atraumatic, Normocephalic, Other (kelsy to posterior scalp intact) Pupils: Positive for: PERRL Extroacular Muscles: Positive for: EOMI Conjunctiva: Positive for: Normal Mouth: Positive for: Moist Mucous Membranes Neck: Positive for: Normal Range of Motion Respiratory/Chest: Positive for: Clear to Auscultation, Good Air Exchange. Negative for: Respiratory Distress, Accessory Muscle Use, Rales, Rhonchi Cardiovascular: Positive for: Regular Rate and Rhythm, Normal S1, S2 Abdomen: Positive for: Normal Bowel Sounds. Negative for: Tenderness, Distention, Peritoneal Signs Back: Positive for: Normal Inspection Upper Extremity: Positive for: Normal Inspection. Negative for: Cyanosis, Edema Lower Extremity: Positive for: Normal Inspection. Negative for: Edema Neurological: Positive for: GCS=15, CN II-XII Intact, Speech Normal, Motor Func Grossly Intact, Normal Sensory Function Skin: Positive for: Warm, Dry, Normal Color. Negative for: Rashes Psychiatric: Positive for: Alert, Oriented x 3, Normal Insight, Normal Concentration - Medications Active Medications: Active Medications Generic Name Dose Route Start Last Admin Trade Name Freq PRN Reason Stop Dose Admin Acetaminophen 650 mg 07/04/17 15:04 Tylenol 325mg Tab PO Q4 PRN Pain, Mild (1-3) Alprazolam 0.5 mg 07/06/17 22:00 07/07/17 23:19 Xanax PO 0.5 mg HS YRN Administration Protocol Dexamethasone 10 mg 07/07/17 18:00 07/08/17 06:45 Decadron Inj IVP 07/08/17 12:01 10 mg Q6 YRN Administration Dexamethasone 4 mg 07/08/17 18:00 Decadron Inj IVP Q6 YRN Levetiracetam 500 mg in 100 mls @ 400 mls/hr 07/02/17 22:00 07/07/17 23:20 Keppra 500mg Ivpb IVPB 400 mls/hr Q12 YRN Administration Mannitol 12.5 gm 07/07/17 18:00 07/08/17 06:45 Mannitol IV 07/08/17 12:01 12.5 gm Q6H YRN Administration Mannitol 12.5 gm 07/08/17 20:00 Mannitol IV 07/09/17 12:01 Q8H YRN Mannitol 12.5 gm 07/09/17 23:59 Mannitol IV 07/10/17 12:00 Q12H YRN Meclizine HCl 25 mg 07/02/17 23:30 Antivert PO TID PRN Dizziness Metoprolol Tartrate 25 mg 07/03/17 10:00 07/07/17 08:28 Lopressor PO 25 mg DAILY YRN Administration Morphine Sulfate 2 mg 07/07/17 14:17 07/08/17 01:01 Morphine IVP 2 mg Q4H PRN Administration Other Nicotine 1 patch 07/06/17 10:00 07/07/17 09:47 Nicoderm Cq TD Not Given DAILY YRN Ondansetron HCl 4 mg 07/04/17 15:04 Zofran Inj IVP Q6H PRN Nausea/Vomiting Oxycodone/Acetaminophen 1 tab 07/07/17 14:18 07/08/17 00:17 Percocet 5/325 Mg Tab PO 07/10/17 14:19 1 tab Q4H PRN Administration Pain, Mild (1-3) Pantoprazole Sodium 40 mg 07/03/17 06:00 07/08/17 06:45 Protonix Ec Tab PO 40 mg 0600 YRN Administration - Patient Studies Lab Studies: Lab Studies 07/08/17 07/08/17 07/07/17 Range/Units 06:00 06:00 10:20 WBC 18.1 H D (4.5-11.0) 10^3/ul RBC 5.26 (3.5-6.1) 10^6/uL Hgb 15.0 (14.0-18.0) g/dL Hct 43.3 (42.0-52.0) % MCV 82.3 (80.0-105.0) fl MCH 28.5 (25.0-35.0) pg MCHC 34.6 (31.0-37.0) g/dl RDW 13.6 (11.5-14.5) % Plt Count 355 (120.0-450.0) 10^3/uL MPV 10.0 (7.0-11.0) fl Gran % 85.9 H (50.0-68.0) % Lymph % (Auto) 8.5 L (22.0-35.0) % [place] % (Auto) 5.5 (1.0-6.0) % Eos % (Auto) 0.0 L (1.5-5.0) % Baso % (Auto) 0.1 (0.0-3.0) % Gran # 15.58 H (1.4-6.5) Lymph # 1.5 (1.2-3.4) [place] # 1.0 H (0.1-0.6) Eos # 0.0 (0.0-0.7) Baso # 0.01 (0.0-2.0) K/mm3 Sodium 135 (132-148) mmol/L Potassium 4.7 (3.6-5.0) mmol/L Chloride 98 (98-107) mmol/L Carbon Dioxide 26 (21-33) mmol/L Anion Gap 16 (10-20) BUN 23 H (7-21) mg/dL Creatinine 0.8 (0.8-1.5) mg/dl Est GFR ( Amer) > 60 Est GFR (Non-Af Amer) > 60 Random Glucose 107 (70-110) mg/dL Calcium 8.9 (8.4-10.5) mg/dL Phosphorus 3.8 (2.5-4.5) mg/dL Magnesium 2.3 H (1.7-2.2) mg/dL Total Bilirubin 0.6 (0.2-1.3) mg/dL AST 16 L (17-59) U/L ALT 27 (7-56) U/L Alkaline Phosphatase 87 (38-126) U/L Total Protein 6.7 (5.8-8.3) g/dL Albumin 3.6 (3.0-4.8) g/dL Globulin 3.1 gm/dL Albumin/Globulin Ratio 1.2 (1.1-1.8) Blood Type O POSITIVE Antibody Screen Negative BBK History Checked Patient has bt Laboratory Results - last 24 hr 07/07/17 07/08/17 07/08/17 10:20 06:00 06:00 WBC 18.1 H D RBC 5.26 Hgb 15.0 Hct 43.3 MCV 82.3 MCH 28.5 MCHC 34.6 RDW 13.6 Plt Count 355 MPV 10.0 Gran % 85.9 H Lymph % (Auto) 8.5 L [place] % (Auto) 5.5 Eos % (Auto) 0.0 L Baso % (Auto) 0.1 Gran # 15.58 H Lymph # 1.5 [place] # 1.0 H Eos # 0.0 Baso # 0.01 Sodium 135 Potassium 4.7 Chloride 98 Carbon Dioxide 26 Anion Gap 16 BUN 23 H Creatinine 0.8 Est GFR ( Amer) > 60 Est GFR (Non-Af Amer) > 60 Random Glucose 107 Calcium 8.9 Phosphorus 3.8 Magnesium 2.3 H Total Bilirubin 0.6 AST 16 L ALT 27 Alkaline Phosphatase 87 Total Protein 6.7 Albumin 3.6 Globulin 3.1 Albumin/Globulin Ratio 1.2 Blood Type O POSITIVE Antibody Screen Negative BBK History Checked Patient has bt Fingerstick Blood Sugar Results: 123 Assessment/Plan - Assessment and Plan (Free Text) Plan: 57yo male with history of extensive smoking history presented to [facility] on 07/02 with c/o left sided paresthesia. Found to have a right occipital brain lesion and lung mass. Lung mass was bx on 07/04 with pathology pending. Patient is now s/p craniotomy by neurosurgery (POD#1). Neuro: -Awake, alert, oriented x3; answering questions appropriately -CT Head reviewed; revealed large area of edema in the right cerebral hemisphere posteriorly, suspicious for vasogenic edema secondary to an underlying intracranial lesion in the right occipital lobe; intracranial mass effect including 4mm midline shift to the left (see full report) -Brain MRI reviewed; revealed enhancing mass in the medial aspect of the right parietal lobe measuring 17mm in height by 17mm AP x 12mm wide; large amount of surrounding vasogenic edema; see full report -CTA Head/Neck reviewed; revealed no evidence of occlusion or other acute abnormality of the major intracranial or neck arteries; large 6.6cm spiculated mass in the left lung apex with nearby mediastinal lymphadenopathy highly suspicious for neoplasm; see full report -Mannitol 12.5 q6h x4 doses, 12.5g q8h x3 doses, 12.5g q12h x2 doses -Decadron 10mg q6h x4 then 4mg q6h -Patient s/p craniotomy by neurosurgery (POD#1) - Dr. Rizo -Neurochecks -Continue with keppra 500mg IV q12h for seizure prophylaxis per neurology recommendations -Neurology following - Dr. 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 Blanchard -Pending results of lung biopsy GI: -Heart healthy diet -GI prophylaxis with protonix Nephro: -Monitor and correct electrolyte abnormalities as indicated -Strict I's and O's Heme: -DVT prophylaxis with SCD's ID: -afebrile, leukocytosis likely secondary to glucocorticoids -no signs of infection at this time Patient seen and case discussed/reviewed with attending, Dr. Jordan <Ori Jordan - Last Filed: 07/08/17 10:47> CCU Objective - Vital Signs / Intake & Output Vital Signs (Last 4 hours): Vital Signs Pulse Resp BP Pulse Ox 07/08/17 09:26 60 111/44 L 07/08/17 08:00 139/35 L 07/08/17 07:59 73 19 96 07/08/17 07:50 70 22 94 L 07/08/17 07:40 60 20 95 07/08/17 07:30 71 15 95 07/08/17 07:20 82 16 96 07/08/17 07:10 56 L 12 96 07/08/17 07:00 55 L 14 124/61 94 L 07/08/17 06:50 61 97 Intake and Output (Last 8hrs): Intake & Output 07/07/17 07/08/17 07/08/17 22:59 06:59 14:59 Intake Total 1100 1300 Output Total 350 1900 Balance 750 -600 Intake: IV 100 100 Left Antecubital 100 100 Oral 1000 1200 Output: Urine 350 1900 Urine, Voided 350 1900 Other: # Bowel Movements 0 - Medications Active Medications: Active Medications Generic Name Dose Route Start Last Admin Trade Name Freq PRN Reason Stop Dose Admin Acetaminophen 650 mg 07/04/17 15:04 Tylenol 325mg Tab PO Q4 PRN Pain, Mild (1-3) Alprazolam 0.5 mg 07/06/17 22:00 07/07/17 23:19 Xanax PO 0.5 mg HS YRN Administration Protocol Dexamethasone 10 mg 07/07/17 18:00 07/08/17 06:45 Decadron Inj IVP 07/08/17 12:01 10 mg Q6 YRN Administration Dexamethasone 4 mg 07/08/17 18:00 Decadron Inj IVP Q6 YRN Levetiracetam 500 mg in 100 mls @ 400 mls/hr 07/02/17 22:00 07/08/17 09:27 Keppra 500mg Ivpb IVPB 400 mls/hr Q12 YRN Administration Mannitol 12.5 gm 07/07/17 18:00 07/08/17 06:45 Mannitol IV 07/08/17 12:01 12.5 gm Q6H YRN Administration Mannitol 12.5 gm 07/08/17 20:00 Mannitol IV 07/09/17 12:01 Q8H YRN Mannitol 12.5 gm 07/09/17 23:59 Mannitol IV 07/10/17 12:00 Q12H YRN Meclizine HCl 25 mg 07/02/17 23:30 Antivert PO TID PRN Dizziness Metoprolol Tartrate 25 mg 07/03/17 10:00 07/08/17 09:26 Lopressor PO 25 mg DAILY YRN Administration Morphine Sulfate 2 mg 07/07/17 14:17 07/08/17 01:01 Morphine IVP 2 mg Q4H PRN Administration Other Nicotine 1 patch 07/06/17 10:00 07/07/17 09:47 Nicoderm Cq TD Not Given DAILY YRN Ondansetron HCl 4 mg 07/04/17 15:04 Zofran Inj IVP Q6H PRN Nausea/Vomiting Oxycodone/Acetaminophen 1 tab 07/07/17 14:18 07/08/17 00:17 Percocet 5/325 Mg Tab PO 07/10/17 14:19 1 tab Q4H PRN Administration Pain, Mild (1-3) Pantoprazole Sodium 40 mg 07/03/17 06:00 07/08/17 06:45 Protonix Ec Tab PO 40 mg 0600 YRN Administration - Patient Studies Lab Studies: Lab Studies 07/08/17 07/08/17 07/07/17 Range/Units 06:00 06:00 10:20 WBC 18.1 H D (4.5-11.0) 10^3/ul RBC 5.26 (3.5-6.1) 10^6/uL Hgb 15.0 (14.0-18.0) g/dL Hct 43.3 (42.0-52.0) % MCV 82.3 (80.0-105.0) fl MCH 28.5 (25.0-35.0) pg MCHC 34.6 (31.0-37.0) g/dl RDW 13.6 (11.5-14.5) % Plt Count 355 (120.0-450.0) 10^3/uL MPV 10.0 (7.0-11.0) fl Gran % 85.9 H (50.0-68.0) % Lymph % (Auto) 8.5 L (22.0-35.0) % [place] % (Auto) 5.5 (1.0-6.0) % Eos % (Auto) 0.0 L (1.5-5.0) % Baso % (Auto) 0.1 (0.0-3.0) % Gran # 15.58 H (1.4-6.5) Lymph # 1.5 (1.2-3.4) [place] # 1.0 H (0.1-0.6) Eos # 0.0 (0.0-0.7) Baso # 0.01 (0.0-2.0) K/mm3 Sodium 135 (132-148) mmol/L Potassium 4.7 (3.6-5.0) mmol/L Chloride 98 (98-107) mmol/L Carbon Dioxide 26 (21-33) mmol/L Anion Gap 16 (10-20) BUN 23 H (7-21) mg/dL Creatinine 0.8 (0.8-1.5) mg/dl Est GFR ( Amer) > 60 Est GFR (Non-Af Amer) > 60 Random Glucose 107 (70-110) mg/dL Calcium 8.9 (8.4-10.5) mg/dL Phosphorus 3.8 (2.5-4.5) mg/dL Magnesium 2.3 H (1.7-2.2) mg/dL Total Bilirubin 0.6 (0.2-1.3) mg/dL AST 16 L (17-59) U/L ALT 27 (7-56) U/L Alkaline Phosphatase 87 (38-126) U/L Total Protein 6.7 (5.8-8.3) g/dL Albumin 3.6 (3.0-4.8) g/dL Globulin 3.1 gm/dL Albumin/Globulin Ratio 1.2 (1.1-1.8) Blood Type O POSITIVE Antibody Screen Negative BBK History Checked Patient has bt Laboratory Results - last 24 hr 07/07/17 07/08/17 07/08/17 10:20 06:00 06:00 WBC 18.1 H D RBC 5.26 Hgb 15.0 Hct 43.3 MCV 82.3 MCH 28.5 MCHC 34.6 RDW 13.6 Plt Count 355 MPV 10.0 Gran % 85.9 H Lymph % (Auto) 8.5 L [place] % (Auto) 5.5 Eos % (Auto) 0.0 L Baso % (Auto) 0.1 Gran # 15.58 H Lymph # 1.5 [place] # 1.0 H Eos # 0.0 Baso # 0.01 Sodium 135 Potassium 4.7 Chloride 98 Carbon Dioxide 26 Anion Gap 16 BUN 23 H Creatinine 0.8 Est GFR ( Amer) > 60 Est GFR (Non-Af Amer) > 60 Random Glucose 107 Calcium 8.9 Phosphorus 3.8 Magnesium 2.3 H Total Bilirubin 0.6 AST 16 L ALT 27 Alkaline Phosphatase 87 Total Protein 6.7 Albumin 3.6 Globulin 3.1 Albumin/Globulin Ratio 1.2 Blood Type O POSITIVE Antibody Screen Negative BBK History Checked Patient has bt Assessment/Plan - Assessment and Plan (Free Text) Plan: 10:45Am Patient seen and examined, with resident, agree with note with following additions/exceptions: 57yo male with PMhx COPD, smoker, presented with lung mass and brain lesion, s/ p Lung biopsy and brain mass excision, tolerated the procedure well. Currently afebrile, HD stable, comfortable, awake, alert, NAD, no focal neurological deficits, tolerated diet this morning. Brain Mass s/p excision Lung Mass s/p biopsy COPD Recommend: - Mannitol as per NSG, monitor UOP, monitor Na - Decadron IV 4mg Q6hr - Seizure ppx, Keppra IV - FS control - Neurochecks - [place] - follow up Heme Onc - GI ppx - DVT ppx - Monitor in MICU
[2017-07-08] MEDS: levETIRAcetam 500mg IVPB 500 MG/100 ML BAG IVPB SCH ×2 (09:27→21:55)
--- NOTE | 2017-07-08 12:09 | PN ---
DATE: 07/08/2017 REASON FOR CONSULTATION AND FOLLOWUP: Cardiac evaluation, history of lung mass with possible mets, status post craniotomy, removal of the mass from the brain. SUBJECTIVE: The patient denies any chest pain, shortness of breath, or any palpitations in ICU. OBJECTIVE: GENERAL: Not in apparent distress, having the breakfast. VITAL SIGNS: Temperature is afebrile, heart rate 60, blood pressure 111/44. HEENT: PERRLA. Extraocular muscles are intact. NECK: Supple. No carotid bruits. No thyromegaly. CHEST: Clear to auscultation. HEART: S1 and S2 regular. ABDOMEN: Soft. EXTREMITIES: Clubbing or cyanosis negative. LABORATORY DATA: Blood workup as follows: WBC 18.1, hemoglobin 15, hematocrit 43.3, platelet count 355. Chemistry shows sodium 135, potassium 4.7, chloride 98, carbon dioxide 26, anion gap of 16, BUN 23, creatinine is 0.8, and magnesium 2.3. IMPRESSION: A 57-year-old male with a past medical history of cardiac catheterization because of abnormal stress test on 12/05/2016, normal coronaries with preserved left ventricular function, ejection fraction 55% to 60%. The patient had a cardiac catheterization on 12/04/2006 also, no significant change. The patient has a left upper lobe mass, possible metastasis to the occipital lobe, history of active tobacco abuse, history of status post craniotomy, history of a mole mass awaiting for the biopsy result. The patient had a recent echo on 07/05/2017, that shows normal left ventricular size, concentric left ventricular hypertrophy, normal mitral valve, normal tricuspid valve, [id number] tricuspid regurgitation. RECOMMENDATIONS: As mentioned earlier, the patient is cleared from Cardiology point of view, status post craniotomy and if the patient needs to remove the mass, it is operable and the patient is cleared from cardiac point of view. No absolute contraindication. In the interim, continue steroid post craniotomy protocol and continue antiseizure medication. Continue low dose beta harman. Hemodynamically, the patient is stable. We will follow with you. CVS status is stable. Thank you Dr. Duncan for providing me the opportunity in taking care of the patient, Peter Levy. Ifeanyi Groves MD
--- NOTE | 2017-07-08 12:42 | CP.PCM.PN ---
Subjective - Date & Time of Evaluation Date of Evaluation: 07/08/17 Time of Evaluation: 12:39 - Subjective Subjective: post opday 1 fully awake alert orineted SAMIRA EOM full no motor deficits no drift doing well can d/c mannitol cont steroid taper dose ok to transfer to floor from my point of view Objective - Vital Signs/Intake and Output Vital Signs (last 24 hours): Temp Pulse Resp BP Pulse Ox 98.2 F 60 19 111/44 L 96 07/08/17 05:00 07/08/17 09:26 07/08/17 07:59 07/08/17 09:26 07/08/17 07:59 Intake and Output: 07/08/17 07/08/17 06:59 18:59 Intake Total 1300 Output Total 1900 Balance -600 - Medications Medications: Current Medications Acetaminophen (Tylenol 325mg Tab) 650 mg PO Q4 PRN PRN Reason: Pain, Mild (1-3) Alprazolam (Xanax) 0.5 mg PO HS YRN PRN Reason: Protocol Last Admin: 07/07/17 23:19 Dose: 0.5 mg Dexamethasone (Decadron Inj) 4 mg IVP Q6 [facility] Levetiracetam (Keppra 500mg Ivpb) 500 mg in 100 mls @ 400 mls/hr IVPB Q12 [facility] Last Admin: 07/08/17 09:27 Dose: 400 mls/hr Mannitol (Mannitol) 12.5 gm IV Q8H [facility] Stop: 07/09/17 12:01 Mannitol (Mannitol) 12.5 gm IV Q12H [facility] Stop: 07/10/17 12:00 Meclizine HCl (Antivert) 25 mg PO TID PRN PRN Reason: Dizziness Metoprolol Tartrate (Lopressor) 25 mg PO DAILY [facility] Last Admin: 07/08/17 09:26 Dose: 25 mg Morphine Sulfate (Morphine) 2 mg IVP Q4H PRN PRN Reason: Other Last Admin: 07/08/17 01:01 Dose: 2 mg Nicotine (Nicoderm Cq) 1 patch TD DAILY [facility] Last Admin: 07/07/17 09:47 Dose: Not Given Ondansetron HCl (Zofran Inj) 4 mg IVP Q6H PRN PRN Reason: Nausea/Vomiting Oxycodone/Acetaminophen (Percocet 5/325 Mg Tab) 1 tab PO Q4H PRN PRN Reason: Pain, Mild (1-3) Stop: 07/10/17 14:19 Last Admin: 07/08/17 00:17 Dose: 1 tab Pantoprazole Sodium (Protonix Ec Tab) 40 mg PO 0600 YRN Last Admin: 07/08/17 06:45 Dose: 40 mg - Labs Labs: 07/08/17 06:00 07/08/17 06:00 PT 13.1 SECONDS (9.4-12.5) H 07/05/17 09:40 INR 1.19 (0.93-1.08) H 07/05/17 09:40 APTT 27.3 Seconds (25.1-36.5) 07/05/17 09:40
--- NOTE | 2017-07-08 13:44 | CP.PCM.PN ---
<Carly Randolph - Last Filed: 07/08/17 19:43> Subjective - Date & Time of Evaluation Date of Evaluation: 07/08/17 Time of Evaluation: 10:00 - Subjective Subjective: PGY-2 Neurology progress note for Dr. Gan's service Patient seen and examined at bedside not acute distress, patient is resting comfortably. He denies any right sided weakness, headache, dizziness. Patient is s/p craniotomy right occipital with excision of tumor. Objective - Vital Signs/Intake and Output Vital Signs (last 24 hours): Temp Pulse Resp BP Pulse Ox 98.2 F 60 19 111/44 L 96 07/08/17 05:00 07/08/17 09:26 07/08/17 07:59 07/08/17 09:26 07/08/17 07:59 Intake and Output: 07/08/17 07/08/17 06:59 18:59 Intake Total 1300 Output Total 1900 Balance -600 - Medications Medications: Current Medications Acetaminophen (Tylenol 325mg Tab) 650 mg PO Q4 PRN PRN Reason: Pain, Mild (1-3) Alprazolam (Xanax) 0.5 mg PO HS YRN PRN Reason: Protocol Last Admin: 07/07/17 23:19 Dose: 0.5 mg Dexamethasone (Decadron Inj) 4 mg IVP Q6 [facility] Levetiracetam (Keppra 500mg Ivpb) 500 mg in 100 mls @ 400 mls/hr IVPB Q12 [facility] Last Admin: 07/08/17 09:27 Dose: 400 mls/hr Mannitol (Mannitol) 12.5 gm IV Q8H [facility] Stop: 07/09/17 12:01 Mannitol (Mannitol) 12.5 gm IV Q12H [facility] Stop: 07/10/17 12:00 Meclizine HCl (Antivert) 25 mg PO TID PRN PRN Reason: Dizziness Metoprolol Tartrate (Lopressor) 25 mg PO DAILY [facility] Last Admin: 07/08/17 09:26 Dose: 25 mg Morphine Sulfate (Morphine) 2 mg IVP Q4H PRN PRN Reason: Other Last Admin: 07/08/17 01:01 Dose: 2 mg Nicotine (Nicoderm Cq) 1 patch TD DAILY [facility] Last Admin: 07/08/17 10:00 Dose: 1 patch Ondansetron HCl (Zofran Inj) 4 mg IVP Q6H PRN PRN Reason: Nausea/Vomiting Oxycodone/Acetaminophen (Percocet 5/325 Mg Tab) 1 tab PO Q4H PRN PRN Reason: Pain, Mild (1-3) Stop: 07/10/17 14:19 Last Admin: 07/08/17 00:17 Dose: 1 tab Pantoprazole Sodium (Protonix Ec Tab) 40 mg PO 0600 YRN Last Admin: 07/08/17 06:45 Dose: 40 mg - Labs Labs: 07/08/17 06:00 07/08/17 06:00 PT 13.1 SECONDS (9.4-12.5) H 07/05/17 09:40 INR 1.19 (0.93-1.08) H 07/05/17 09:40 APTT 27.3 Seconds (25.1-36.5) 07/05/17 09:40 - Constitutional Appears: No Acute Distress - Head Exam Head Exam: ATRAUMATIC, NORMAL INSPECTION, NORMOCEPHALIC - Eye Exam Eye Exam: EOMI, Normal appearance - ENT Exam ENT Exam: Mucous Membranes Moist - Respiratory Exam Respiratory Exam: Clear to Ausculation Bilateral, NORMAL BREATHING PATTERN. absent: Respiratory Distress - Cardiovascular Exam Cardiovascular Exam: REGULAR RHYTHM. absent: Tachycardia - Neurological Exam Neurological Exam: Alert, Awake, CN II-XII Intact, Oriented x3 Neuro motor strength exam: Left Upper Extremity: 5, Right Upper Extremity: 5, Left Lower Extremity: 5, Right Lower Extremity: 5 - Skin Skin Exam: Dry, Intact, Normal Color, Warm Assessment and Plan - Assessment and Plan (Free Text) Assessment: 57 yo male with PMH of HTN presented with headache, dizziness found to have brain lesion in right parietal lobe most likely due to lung Ca. 1. brain lesion 2. lung mass, poss Ca 3. HTN - Head CT showed lesion of right occipital lobe and smaller areas of edema in left frontal and parietal lobes - CTA showed no occlusion or acute abnormality of major intracranial or neck arteries, large spiculated mass left lung apex - brain MRI- mass in right parietal lobe - s/p biopsy of lung mass - s/p craniotomy right occipital with excision of tumor pod#1 - continue decadron - continue keppra 500mg for seizure prophylaxis - follow up recommendation from neurosurgery and rad/onc case reviewed and discussed with Dr. Gan <Chente Gan - Last Filed: 07/09/17 10:33> Objective - Vital Signs/Intake and Output Vital Signs (last 24 hours): Temp Pulse Resp BP Pulse Ox 98.4 F 73 21 138/50 L 95 07/09/17 04:00 07/09/17 09:04 07/09/17 07:01 07/09/17 09:04 07/09/17 07:01 Intake and Output: 07/09/17 07/09/17 06:59 18:59 Intake Total 1920 420 Output Total 3925 500 Balance -2004 - Medications Medications: Current Medications Acetaminophen (Tylenol 325mg Tab) 650 mg PO Q4 PRN PRN Reason: Pain, Mild (1-3) Last Admin: 07/08/17 16:46 Dose: 650 mg Alprazolam (Xanax) 0.5 mg PO HS YRN PRN Reason: Protocol Last Admin: 07/08/17 21:45 Dose: 0.5 mg Dexamethasone (Decadron Inj) 4 mg IVP Q6 YRN Last Admin: 07/09/17 05:00 Dose: 4 mg Hydralazine HCl (Apresoline) 10 mg PO QID PRN PRN Reason: for SBP >170 Levetiracetam (Keppra 500mg Ivpb) 500 mg in 100 mls @ 400 mls/hr IVPB Q12 YRN Last Admin: 07/09/17 09:04 Dose: 400 mls/hr Mannitol (Mannitol) 12.5 gm IV Q8H YRN Stop: 07/09/17 12:01 Last Admin: 07/09/17 04:56 Dose: 12.5 gm Mannitol (Mannitol) 12.5 gm IV Q12H YRN Stop: 07/10/17 12:00 Meclizine HCl (Antivert) 25 mg PO TID PRN PRN Reason: Dizziness Metoprolol Tartrate (Lopressor) 25 mg PO DAILY [facility] Last Admin: 07/09/17 09:04 Dose: 25 mg Morphine Sulfate (Morphine) 2 mg IVP Q4H PRN PRN Reason: Other Last Admin: 07/08/17 22:05 Dose: 2 mg Nicotine (Nicoderm Cq) 1 patch TD DAILY [facility] Last Admin: 07/09/17 09:05 Dose: 1 patch Ondansetron HCl (Zofran Inj) 4 mg IVP Q6H PRN PRN Reason: Nausea/Vomiting Oxycodone/Acetaminophen (Percocet 5/325 Mg Tab) 1 tab PO Q4H PRN PRN Reason: Pain, Mild (1-3) Stop: 07/10/17 14:19 Last Admin: 07/08/17 00:17 Dose: 1 tab Pantoprazole Sodium (Protonix Ec Tab) 40 mg PO 0600 YRN Last Admin: 07/09/17 05:14 Dose: 40 mg - Labs Labs: 07/09/17 06:00 07/09/17 06:00 PT 13.1 SECONDS (9.4-12.5) H 07/05/17 09:40 INR 1.19 (0.93-1.08) H 07/05/17 09:40 APTT 27.3 Seconds (25.1-36.5) 07/05/17 09:40 Attending/Attestation - Attestation I have personally seen and examined this patient.: Yes I have fully participated in the care of the patient.: Yes I have reviewed all pertinent clinical information, including history, physical exam and plan: Yes
[2017-07-08] MEDS: Dexamethasone 4 mg/1 ml IVP SCH ×2 (18:20→23:16)
--- NOTE | 2017-07-09 00:17 | OP ---
PROCEDURE DATE: 07/07/2017 PREOPERATIVE DIAGNOSIS: Right parietal occipital mass. POSTOPERATIVE DIAGNOSIS: Right parietal occipital mass. PROCEDURE: Right parietooccipital craniotomy and excision of mass. SURGEON: Johnson Rizo MD RADIATOR CLEANER: Dallin Salmeron DESCRIPTION OF PROCEDURE: The patient was brought to the operating room, intubated appropriately, placed the Muller pin head of cytogenetics bolsters. His hair was clipped and his head was prepped and draped in usual manner. A lazy-S type incision was marked out approximately a fingerbreadth to the right of midline at the proximal area of the mass. This was instilled with lidocaine with epinephrine. The scalp was incised sharply and Weitlaner retractors were placed. Two bur holes were placed to the right of midline, one at the front and one at the back of the scalp incision, and craniotome was then used after using the Foley elevator to separate the dura from the skull to form a cranial plate. At this point, a 15 blade followed by Metzenbaum scissors were used to open the dura in a curved manner based at the midline and this was flapped and retracted back using a 4-0 Nurolon suture. We identified the area where the mass was suspected and made a corticectomy just off the medial bank of the hemisphere and we encountered this mass approximately a centimeter deep. It was discolored and clearly distinct from normal brain tissue. We brought the microscope in and rest of the dissection was done under the microscope. We used the combination of blunt dissection with cottonoid paddies and cotton balls to help dissect the plane and the mass was removed in multiple fragments. We searched around the tumor bed and identified that we could see no further visible signs of residual tumor at this point. The on the medial bank was coagulated and wound was thoroughly irrigated. Hemostasis appeared meticulous. We coated the tumor bed with Surgicel and Surgifoam and then proceeded to reapproximate the dura with 4-0 Nurolon. Gelfoam was placed over the exposed dura and then two RapidFix plates, one 16 and one 12 mm, were used to reapproximate the bone plate. Again, the wound was irrigated. The scalp was then reapproximated in multiple layers, 2-0 Vicryl skin kelsy. Sterile dressing was applied to the skin edge. The patient was then taken out of [facility] head of cytogenetics, turned on to his bed and extubated, found to be awake, moving all the extremities, and talking. Blood loss approximately 250 mL. No transfusion. All counts were correct. Specimen was right parietal mass. Johnson Rizo MD
[2017-07-09] MEDS: Mannitol 12.5 gm/50 ml Inj IV SCH ×2 (04:56→11:20)
[2017-07-09] MEDS: Dexamethasone 4 mg/1 ml IVP SCH ×3 (05:00→21:56)
[2017-07-09] MEDS: Pantoprazole 40 mg EC Tab PO SCH (05:14)
[2017-07-09 07:07] LABS: BASO # 0.01 K/mm3 (0.0-2.0); BASO % 0.1 % (0.0-3.0); GRAN # 14.83 (1.4-6.5); GRAN % 80.6 % (50.0-68.0); HEMATOCRIT 42.9 % (42.0-52.0); LYMPH % 10.7 % (22.0-35.0); MEAN CELL VOLUME 82.5 fl (80.0-105.0); MEAN CORPUSCULAR HEMOGLOBIN 28.5 pg (25.0-35.0); MEAN CORPUSCULAR HGB CONC 34.5 g/dl (31.0-37.0); MEAN PLATELET VOLUME 10.1 fl (7.0-11.0); MONO # 1.6 (0.1-0.6); MONO % 8.6 % (1.0-6.0); RED CELL DISTRIBUTION WIDTH 13.7 % (11.5-14.5); WHITE BLOOD COUNT 18.4 10^3/ul (4.5-11.0)
[2017-07-09 07:50] LABS: ALB/GLOB RATIO 1.2 (1.1-1.8); ALKALINE PHOSPHATASE 92 U/L (38-126); ALT/SGPT 30 U/L (7-56); AST/SGOT 19 U/L (17-59); BILIRUBIN,TOTAL 0.7 mg/dL (0.2-1.3); BLOOD UREA NITROGEN 24 mg/dL (7-21); CALCIUM 8.8 mg/dL (8.4-10.5); CARBON DIOXIDE 29 mmol/L (21-33); CHLORIDE 98 mmol/L (98-107); GFR AFRICAN-AMERICAN > 60; GLUCOSE,RANDOM 96 mg/dL (70-110); POTASSIUM 4.6 mmol/L (3.6-5.0); SODIUM 133 mmol/L (132-148); TOTAL PROTEIN 6.4 g/dL (5.8-8.3)
--- NOTE | 2017-07-09 08:46 | PN ---
DATE: 07/08/2017 SUBJECTIVE: The patient is a 57-year-old, seen and examined, sitting in chair, seems to be comfortable. Awake, alert, oriented, and communicative. PHYSICAL EXAMINATION VITAL SIGNS: He is afebrile. Pulse is 77, respirations are 16, blood pressure is . HEART: S1 and S2, audible. LUNGS: Bilateral fair airflow. No rhonchi or crackles. ABDOMEN: Soft and nontender. No rebound and no guarding. NEUROLOGIC: The patient is awake, alert, oriented, and communicative. Movies all extremities. No focal deficits. LABORATORY DATA: WBC of 18.1, hemoglobin of 15, hematocrit of 43, and platelets of 355. Chemistry: Sodium of 135, potassium of 4.7, chloride of 98, CO2 of 26, BUN of 23, creatinine of 0.8, and blood sugar of 107. ASSESSMENT AND PLAN: 1. Left lung mass, status post CT-guided biopsy. 2. Occipital mass, the patient has craniotomy and excision of lesion done. 3. Left-sided weakness and numbness seems to be improving. 4. Leukocytosis secondary to steroids. PLAN: We will continue the patient on dexamethasone analgesic as needed. He is on Keppra as prophylaxis. He is on mannitol to decrease intracranial pressure. I will continue him on Protonix. We will follow up the patient a.m. Raul Duncan MD
[2017-07-09] MEDS: levETIRAcetam 500mg IVPB 500 MG/100 ML BAG IVPB SCH ×2 (09:04→21:56)
[2017-07-09] MEDS ORDERED: cefTRIAXone 1 gm in D5W 100ml IVPB SCH (12:15)
[2017-07-09] MEDS: Levalbuterol 0.63 MG/3 ML Inhal Soln UD IH SCH ×2 (14:18→20:27)
--- NOTE | 2017-07-09 14:52 | PN ---
DATE: REASON FOR CONSULTATION AND FOLLOWUP: Cardiac evaluation, history of lung mass with possible metastasis, status post craniotomy, removal of the mass from the brain, status post CT-guided lung biopsy. SUBJECTIVE: The patient denies any chest pain, shortness of breath or any palpitations. Sitting in the bed having the breakfast. OBJECTIVE: GENERAL: Not in apparent distress. Status post craniotomy. Awake, alert, and oriented. VITAL SIGNS: As follows: Temperature is afebrile, heart rate 73, and blood pressure 138/50. HEENT: PERRLA. Extraocular muscles are intact. NECK: Supple. No carotid bruits or thyromegaly. CHEST: Clear to auscultation. HEART: S1 and S2. Regular. ABDOMEN: Soft. EXTREMITIES: Clubbing or cyanosis negative. LABORATORY DATA: Blood workup as follows: WBC , hemoglobin 14.8, hematocrit 42.9, and platelet count 334. Chemistry, sodium 130, potassium 4.6, chloride 90, CO2 of 29, anion gap of 11, BUN 24, and creatinine 0.8. IMPRESSION: Lung mass, status post CT-guided biopsy, right occipital parietal lobe mass, status post excision, status post craniotomy, history of cardiac catheterization twice because of abnormal stress test, most recently 12/05/2016, normal coronaries with preserved left ventricular function, ejection fraction 55% to 60%. Prior to that, the patient had a cardiac catheterization on 12/04/2016, he had that time also normal coronaries, admitted with left upper lobe mass with possible metastasis to the brain. Most recent echocardiogram did on 07/05/2017 shows normal left ventricle size, concentric left ventricle hypertrophy, normal mitral valve, normal tricuspid valve, and trace to mild mitral regurgitation. RECOMMENDATIONS: Continue steroid. Continue antiseizure medications as per Neurology and Neurosurgical intervention. Because of the steroid if the blood pressure goes up, we will put hydralazine 10 mg p.r.n. Continue low-dose beta-harman. We will follow with you. Thank you Dr. Duncan for providing me the opportunity in taking care of the patient, Peter Levy. Ifeanyi Groves MD
[2017-07-09] MEDS: POLYETHYLENE GLYCOL 3350 17 GM/Dose PACKET PO SCH (17:16)
--- NOTE | 2017-07-09 19:18 | PN ---
DATE: SUBJECTIVE: The patient is a 57-year-old seen and examined, sitting in chair, seems to be comfortable. No nausea, no vomiting, no diarrhea. Eating and tolerating. Complained of constipation rather. PHYSICAL EXAMINATION: VITAL SIGNS: He is afebrile. Pulse 81, respirations 20, and blood pressure 130/76. LUNGS: Bilateral fair airflow. No rhonchi or crackles. HEART: S1 and S2 audible. No murmur. ABDOMEN: Soft, nontender. No rebound. No guarding. NEUROLOGIC: The patient is awake, alert, oriented, communicative, ambulatory. LABORATORY EXAMINATION: WBC 18.4, hemoglobin 14.8, hematocrit 42.9, and platelet . Chemistries: Sodium 133, potassium 4.6, chloride 98, CO2 of 29, BUN 24, creatinine 0.8, blood sugar of 96. ASSESSMENT: 1. 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 2. Status post craniotomy and has occipital mass excision done. 3. Active smoker. 4. History of hypertension. PLAN: The patient was transferred from CCU. We will keep him on dexamethasone 4 mg q. 6, will decrease it to q. 8. Physical therapy evaluation will be done. Give him some stool softener. Continue him on Keppra. The patient is complaining of cough and congestion and he is spitting yellow phlegm. We will start him on Rocephin. We will start him on nebulizer treatment. We will reevaluate the patient in a.m. Awaiting pathology report, CT scan as well as CT-guided lung . Raul Duncan MD
[2017-07-10] MEDS: Mannitol 12.5 gm/50 ml Inj IV SCH ×2 (01:21→13:42)
[2017-07-10] MEDS: Dexamethasone 4 mg/1 ml IVP SCH ×3 (06:30→21:38)
[2017-07-10] MEDS: Pantoprazole 40 mg EC Tab PO SCH (06:31)
[2017-07-10] MEDS: Levalbuterol 0.63 MG/3 ML Inhal Soln UD IH SCH ×2 (07:28→13:29)
[2017-07-10] MEDS: levETIRAcetam 500mg IVPB 500 MG/100 ML BAG IVPB SCH (09:43)
[2017-07-10] MEDS: POLYETHYLENE GLYCOL 3350 17 GM/Dose PACKET PO SCH (09:54)
[2017-07-10] MEDS: cefTRIAXone 1 gm in D5W 100ml IVPB SCH (09:55)
--- NOTE | 2017-07-10 14:13 | PN ---
DATE: 07/10/2017 LOCATION: The patient in room 560, bed 2. REASON FOR CONSULTATION: Followup cardiac evaluation, history of lung masses, possible metastasis, status post craniotomy, removal of the mass from the brain, status post CT-guided lung biopsy. SUBJECTIVE: The patient is sitting in chair without any complaints of chest pain, shortness of breath, palpitation. PHYSICAL EXAMINATION: VITAL SIGNS: Blood pressure 127/83, respirations 20, pulse 63, temperature 98.5. HEENT: Head is normocephalic. Eyes: Pupils normal. Conjunctivae normal. Nose and throat normal. NECK: JVP low. Carotids equal. THORAX: AP diameter normal. LUNGS: The patient on left lung has some crackles. CARDIOVASCULAR: S1 and S2. ABDOMEN: Soft, nontender. No organomegaly. EXTREMITIES: No clubbing. No cyanosis. LABORATORY DATA: WBC 18.4, hemoglobin 14.8, hematocrit 42.9, platelets 334. Sodium 133, potassium 4.6, BUN 24, creatinine 0.8. AST, ALT normal. Total protein, albumin normal. CT chest: Left upper lobe lung mass for which the patient had CT-guided biopsy. The patient's echocardiogram on 07/05/2017 showed normal left ventricular size, concentric left ventricular hypertrophy, normal mitral tricuspid valve, trace to mid regurgitation seen. The patient has twice cardiac catheterization because of abnormal stress test, most recent was on 12/05/2016, which showed normal coronary with preserved left ventricle function, ejection fraction 55% to 60%. DIAGNOSES: Lung mass, status post CT-guided biopsy; right occipital parietal lobe mass, status post excision, status post craniotomy. PLAN: The patient on Kera, we will continue with that. Metoprolol tartrate 25 mg p.o. daily, Protonix 40 p.o. daily, Rocephin 1 g IV daily, Xopenex p.r.n., Decadron 4 mg IV q. 8 hours. Clinically, cardiac status stable. We will continue present therapy. We will follow. Ifeanyi Ma MD
[2017-07-11 02:56] VITALS: RESP 19
[2017-07-11] MEDS: Pantoprazole 40 mg EC Tab PO SCH (05:51)
--- NOTE | 2017-07-11 08:07 | PN ---
DATE: 07/10/2017 SUBJECTIVE: The patient is a 57-year-old, seen and examined, doing well, eating and tolerating, and ambulating. PHYSICAL EXAMINATION: VITAL SIGNS: The patient is afebrile, pulse 58, respirations 20, and blood pressure 127/83. LUNGS: Bilateral fair airflow. No rhonchi or crackles. HEART: S1 and S2 audible. ABDOMEN: Soft and nontender. No rebound. No guarding. NEUROLOGIC: He is awake, alert, oriented, and communicative. Ambulates with the cane. 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 Discussed with Dr. Griffith. ASSESSMENT: 1. Left upper lung mass, status post CT-guided biopsy. 2. Metastasis to occipital lobe, status post excision. 3. History of active smoking. PLAN: The patient is currently on meclizine as needed. He is on Keppra, we will switch it to p.o. We will reach out to Neurology if it is clear from Neurology point of view and oncologist need to see the patient also for further plan. Awaiting Dr. Mathew's input and then we will make discharge plan in a.. Raul Duncan MD
--- NOTE | 2017-07-11 08:13 | CON ---
DATE: 07/10/2017 REASON FOR CONSULT: Lung mass with brain mets, squamous cell carcinoma of the lung. HISTORY OF PRESENT ILLNESS: The patient is a 57-year-old male with no significant past medical history except for hypertension which was labile, and patient was noncompliant with his medication, who presented to the emergency room with sudden onset of feeling very dizzy and having a presyncopal episode. He also had numbness and tingling in the left side of his arm and leg, at which point, he was worried that he was having a stroke and had his roommate call the emergency room. Upon admission, he was found to have a right parietal lesion and also a left upper lobe lung mass. He is currently status post craniotomy for excision of the brain mets and also had a CT-guided lung biopsy which is now positive for squamous cell lung carcinoma. He has not had any staging workup done including CT scans or PET scan. He is 3 days post from craniotomy, feels very well. He is ambulating with physical therapy, and most likely, will be discharged home in the morning. He was seen by Radiation Oncology, and it was determined that at this point as the lesion was completely resectable, whole-brain RT would probably add to his cognitive impairment, and if patient has no other metastatic disease, he would probably benefit from just observing with close MRI followup at this point. He denies any other complaints. He has not lost any weight. He does have a persistent cough which has been ongoing for several years. Denies any worsening of the cough. Denies any hemoptysis. No dyspnea on exertion. No other complaints. PAST MEDICAL HISTORY: As above. Significant for hypertension which he was noncompliant with his medications. FAMILY HISTORY: Significant for mother dying of ovarian cancer at the age of 58, also had a cousin who from cancer, but otherwise, unknown. ALLERGIES: HE HAS NO KNOWN DRUG ALLERGIES. SOCIAL HISTORY: Positive for smoking for several years. 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 He has a grown son who is also a smoker. REVIEW OF SYSTEMS: As per the HPI. PHYSICAL EXAMINATION: VITALS: Reveal a temperature of 98.7, pulse of 70, respiratory rate of 18, and a blood pressure of 134/73. GENERAL: The patient is a middle-aged male, lying in bed, in no acute distress. HEAD: There is a large scar in the mid posterior region from his recent craniotomy with mild erythema and mild tenderness. NECK: Supple with no adenopathy, no JVD, no thyromegaly. LUNGS: Clear to auscultation bilaterally with no rales or rhonchi. CARDIOVASCULAR: S1, S2 is heard. ABDOMINAL: Exam, positive bowel sounds. Soft, nontender, nondistended. No organomegaly is palpated. EXTREMITIES: There is no edema, clubbing, or cyanosis. LABORATORIES: Reveal a white count of 18.4, hemoglobin of 14.8, hematocrit of 42.9, MCV of 82.5, and a platelet count of 334. Chemistries are within normal limits. IMAGING: He has no CT scans of the chest. The CT from the CT-guided lung biopsy shows a 6 cm left upper lobe mass. He did have a CT angio of the head and neck. He had a brain MRI which showed a right parietal lesion, which was 17 mm x 12 mm, which is now currently excised. ASSESSMENT AND PLAN: Middle-aged male with a large left upper lobe lung mass. No pineda status is noted on the chest x-ray, also with solitary metastases to the brain, status post excision. We will hold off on radiotherapy at this point as he may have more cognitive impairment from getting whole brain radiotherapy. We will consider stereotactic radiosurgery. We will also need a full staging workup which will be set up as an outpatient to determine pineda status. The patient will get a PET-CT arranged as an outpatient. Further treatment plans will depend on the stage of the disease. If it is a limited stage disease, we will benefit from aggressive treatment with radiation and chemotherapy to down stage the disease and possible further surgical resection. Continue Decadron at this point. We will discuss with Radiation further once full staging workup is available. Thank you for the consult. We will follow up as an outpatient. Alyssa Mathew MD
[2017-07-11 08:25] VITALS: BP 124/66; PULSE 59; TEMP 97.9; O2SAT 97
[2017-07-11] MEDS: Dexamethasone 4 mg/1 ml IVP SCH (09:04)
[2017-07-11] MEDS: POLYETHYLENE GLYCOL 3350 17 GM/Dose PACKET PO SCH (09:05)
[2017-07-11] MEDS: cefTRIAXone 1 gm in D5W 100ml IVPB SCH (09:06)
--- NOTE | 2017-07-11 20:41 | PN ---
DATE: 07/11/2017 LOCATION: Patient in room 560, bed 2. REASON FOR CONSULTATION: Cardiac evaluation, history of lung mass, possible metastasis, status post craniotomy, removal of mass from the brain, status post CT guided lung biopsy. SUBJECTIVE: Patient denies any chest pain, shortness of breath or palpitation. Patient is conscious and alert, sitting in chair at present. PHYSICAL EXAMINATION: VITAL SIGNS: Blood pressure 124/66, respirations 19, pulse 59, temperature 97.9. HEENT: Head is normocephalic. Eyes, pupils normal, conjunctivae normal. Nose and throat normal. NECK: JVP low, carotids equal. THORAX: AP diameter normal. LUNGS: No significant rales. CARDIOVASCULAR: S1, S2. ABDOMEN: Soft. No tenderness. No organomegaly. Bowel sounds normal. EXTREMITIES: No clubbing, no cyanosis. LABORATORY DATA: WBC 18.4, hemoglobin 14.8, hematocrit 42.9, platelet 334. Sodium 133, potassium 4.6, BUN 24, creatinine 0.8, AST 19, ALT 30, total protein 6.4, albumin 3.5. DIAGNOSES: Lung mass, status post CT guided biopsy; right occipitoparietal lobe mass, status post excision, status post craniotomy. Patient had cardiac catheterization in the past for abnormal stress test, recently also had a catheterization on 12/05/2016, which showed normal coronaries with preserved left ventricular ejection fraction of 55% to 60%. PLAN: Patient will continue medication as ordered including metoprolol tartarate 25 mg daily, Protonix 40 daily. Clinically cardiac status is stable. We will follow. Ifeanyi Ma MD
--- NOTE | 2017-07-14 08:41 | DS ---
HISTORY OF PRESENT ILLNESS: The patient is a 57-year-old who came to emergency room after he was feeling dizzy as he feels going to pass out and he was feeling some numbness in the left side of the body and so friend called ambulance and was brought to emergency room, was found to have tumor in the right occipital region, and followup CT scan of the chest shows left upper lung mass. CT-guided biopsy done shows poorly-differentiated adenocarcinoma of the lungs. The patient underwent excision of brain lesion. Postprocedure, he was stable and has been on Keppra and dexamethasone and doing well. PHYSICAL EXAMINATION: GENERAL: Today; he is awake, alert, oriented, and communicative. VITAL SIGNS: He is afebrile, pulse 59, respirations 19, and blood pressure 124/66. LUNGS: Bilateral fair airflow. No rhonchi or crackle. HEART: S1 and S2 audible. ABDOMEN: Soft and nontender. No rebound. No guarding. NEUROLOGIC: The patient is awake, alert, oriented, and able to communicate. LABORATORY DATA: There are no new labs available today. 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 PLAN: The patient is being transferred to [facility]. He will be discharged on Keppra 500 twice a day and dexamethasone 4 mg twice a day. The patient to have PET scan done and the patient will follow with Dr. Mathew after he is discharged from [facility]. Raul Duncan MD
== END 2017-07-11 16:25 | DRG 25 ==
LOC: ED 18:48 → ERH 21:33 → CCU 23:19 → 5RSO 07-03 15:13 → CCU 07-07 15:09 → 5RNO 07-09 15:53
PROVIDERS: ADMIT Internal Medicine; ATTEND Internal Medicine
PROC: 0BBG3ZX Excision of Left Upper Lung Lobe, Percutaneous Approach, Diagnostic (ICD-10-PCS; 2017-07-04)
PROC: BB24ZZZ Computerized Tomography (CT Scan) of Bilateral Lungs (ICD-10-PCS; 2017-07-04)
PROC: 00B00ZZ Excision of Brain, Open Approach (ICD-10-PCS; principal; 2017-07-07 11:00)
DX: C79.31 Secondary malignant neoplasm of brain (principal); G93.6 Cerebral edema; C34.12 Malignant neoplasm of upper lobe, left bronchus or lung; G81.94 Hemiplegia, unspecified affecting left nondominant side; I11.9 Hypertensive heart disease without heart failure; I08.1 Rheumatic disorders of both mitral and tricuspid valves; D72.829 Elevated white blood cell count, unspecified; E78.00 Pure hypercholesterolemia, unspecified; F17.210 Nicotine dependence, cigarettes, uncomplicated; T38.0X5A Adverse effect of glucocorticoids and synthetic analogues, initial encounter; H54.7 Unspecified visual loss; I25.10 Atherosclerotic heart disease of native coronary artery without angina pectoris; I51.7 Cardiomegaly; K59.00 Constipation, unspecified; Z79.899 Other long term (current) drug therapy; Z80.41 Family history of malignant neoplasm of ovary; Z91.19 Patient's noncompliance with other medical treatment and regimen; Z91.14 Patient's other noncompliance with medication regimen; Z87.11 Personal history of peptic ulcer disease; R40.2412 Glasgow coma scale score 13-15, at arrival to emergency department; J44.9 Chronic obstructive pulmonary disease, unspecified

== ENCOUNTER 2017-08-02 16:15 | Inpatient (IN) | payer BC ==
[2017-08-02 16:19] VITALS: BMI 26.1
--- NOTE | 2017-08-02 16:54 | ED PDOC ---
Arrival/HPI - General Chief Complaint: Fever Time Seen by Provider: 08/02/17 16:44 Historian: Patient - History of Present Illness Narrative History of Present Illness (Text): 08/02/17 16:53 A 57 year old male, whose past medical history includes lung cancer with metastasis to the brain, recently started chemotherapy 4 days ago, presents with history of bodyaches and fever for past 2-3 days. Patient reports myalgias and fever one day after completing his first chemotherapy this past week. He denies headache. He denies sore throat or new cough. Denies rash. Denies abdominal pain. Denies nausea or vomiting. Denies dysuria or frequency. PMD: Dr. Duncan Oncologist: Dr. Mathew 08/02/17 19:38 Time/Duration: Other (2-3 days) Symptom Course: Unchanged Quality: Other Context: Home Past Medical History - Provider Review Nursing Documentation Reviewed: Yes - Infectious Disease Hx of Infectious Diseases: None - Cardiac Hx Cardiac Disorders: Yes (chest pain) Hx Hypertension: Yes - Pulmonary Hx Respiratory Disorders: Yes Hx Emphysema: Yes Other/Comment: URI - Neurological Hx Neurological Disorder: Yes Hx Dizziness: Yes (vertigo) Other/Comment: headaches on and off x 2 weeks - HEENT Hx HEENT Disorder: Yes (sinus congestion) Other/Comment: recent impaired vision r eye blurred, having prioblems with periphral vision and feels like right eye is crossed when following finger - Renal Hx Renal Disorder: No - Endocrine/Metabolic Hx Endocrine Disorders: No - Hematological/Oncological Hx Blood Transfusions: No Hx Blood Transfusion Reaction: No Hx Cancer: Yes (Lung ca; currently on chemo) - Integumentary Hx Dermatological Disorder: No - Musculoskeletal/Rheumatological Hx Musculoskeletal Disorders: Yes Hx Back Pain: Yes (sciatica) Hx Falls: Yes (fell today in ct scan) Hx Unsteady Gait: Yes (off balance) Other/Comment: lumbar radiculopathy, fell today 07/02/[address] scan stood up at side of bed to void in urinal and fell - Gastrointestinal Other/Comment: egc/colonoscopy 10/28/16 pre op dx was dysphagia- post op dx duodenitis, duodenal ulcer, erosive gastritis, r/o h pylori, polyp, diverticulosis, hemorrhoids - Genitourinary/Gynecological Hx Genitourinary Disorders: No - Psychiatric Hx Emotional Abuse: No Hx Physical Abuse: No Hx Substance Use: No - Past Surgical History Past Surgical History: No Previous - Surgical History Other/Comment: brain tumor sx - Anesthesia Hx Anesthesia: Yes Hx Anesthesia Reactions: No Hx Malignant Hyperthermia: No - Suicidal Assessment Feels Threatened In Home Enviroment: No Family/Social History - Physician Review Nursing Documentation Reviewed: Yes Family/Social History: No Known Family HX Smoking Status: Heavy Smoker > 10 Cigarettes Daily Hx Alcohol Use: Yes (OCCASIONALLY) Hx Substance Use: No Allergies/Home Meds Allergies/Adverse Reactions: Allergies No Known Allergies Allergy (Verified 07/02/17 18:52) Patient relates allergy to IV contrast Home Medications: Home Meds Medication Instructions Recorded Confirmed Ciprofloxacin/Dexamethasone 1 drop DAILY 08/02/17 08/02/17 [Ciprodex Otic] Clotrimazole [Mycelex Danette] 1 tab PO DAILY 08/02/17 08/02/17 Dexamethasone [Decadron] 1 tab PO DAILY 08/02/17 08/02/17 Folic Acid [Folic Acid] 1 tab PO DAILY 08/02/17 08/02/17 Mag&Al/Simet/Diphen/Lido [First 1 appl PO DAILY 08/02/17 08/02/17 Magic Mouthwash] Meclizine [Meclizine*] 1 tab PO TID 08/02/17 08/02/17 Metoprolol Tartrate [Lopressor] 1 tab PO BID 08/02/17 08/02/17 Pantoprazole Sodium [Protonix] 1 tab PO DAILY 08/02/17 08/02/17 levETIRAcetam [Keppra] 1 tab PO BID 08/02/17 08/02/17 Review of Systems - Review of Systems Constitutional: Fatigue, Fevers Eyes: absent: Vision Changes, Eye Pain ENT: absent: Hearing Changes Respiratory: absent: SOB, Cough Cardiovascular: absent: Chest Pain Gastrointestinal: absent: Abdominal Pain, Diarrhea, Nausea, Vomiting Genitourinary Male: absent: Dysuria, Frequency, Hematuria Musculoskeletal: Myalgias. absent: Arthralgias, Back Pain, Joint Swelling Skin: Other (surgical scar to scalp). absent: Rash, Pruritis Neurological: Headache. absent: Dizziness, Focal Weakness Endocrine: absent: Polyuria, Polydipsia Hemo/Lymphatic: absent: Easy Bleeding Psychiatric: absent: Depression, Suicidal Ideation Physical Exam - Physical Exam Narrative Physical Exam (Text): Head: There is a surgical scar to scalp, mildly tender to palpation but no edema or erythema or pus or drainage. Eyes: PERRL. EOMI. Conjunctivae are not pale. ENT: Mucous membranes are moist and intact. Oropharynx is clear and symmetric. Neck: Supple. Full ROM. No JVD. No lymphadenopathy. No meningeal signs. Cardiovascular: Regular rate. Regular rhythm. Systolic murmur. Distal pulses are 2+ and symmetric. Pulmonary/Chest: No evidence of respiratory distress. Clear to auscultation bilaterally. No wheezing, rales or rhonchi. Abdominal: Soft and non-distended. There is no tenderness. No rebound, guarding, or rigidity. No organomegaly. Good bowel sounds. Back: No CVA tenderness. No midline tenderness. Extremities: No edema. No cyanosis. No clubbing. Full range of motion in all extremities. No calf tenderness. Skin: Skin is warm and dry. No petechiae. No purpura. Neurological: Alert, awake, and oriented. No slurred speech, no focal motor or sensory deficits. Psychiatric: Good eye contact. Normal interaction, affect, and behavior. Vital Signs Reviewed: Yes Vital Signs Temp Pulse Resp BP Pulse Ox 08/02/17 18:59 93 H 16 131/77 98 08/02/17 18:49 99.5 F 88 18 106/44 L 95 08/02/17 17:33 102.5 F H 08/02/17 16:45 102.5 F H 08/02/17 16:22 100.6 F H 102 H 18 143/73 92 L Temperature: Febrile Blood Pressure: Normal Pulse: Tachycardic Respiratory Rate: Normal Appearance: Positive for: Well-Appearing, Non-Toxic, Comfortable Pain Distress: None Mental Status: Positive for: Alert and Oriented X 3 Medical Decision Making ED Course and Treatment: 08/02/17 16:53 Impression: A 57 year old male with fever, myalgias. Plan: -- Chest xray -- EKG -- Labs -- Blood and Urine culture -- Urinalysis -- Influenza A B Stat -- IV fluids, Tamiflu and Tylenol -- Reassess and disposition Progress Notes: Patient had recent chemotherapy. He is febrile in ED, but is NONTOXIC APPEARING. IV fluids initiated. Case d/w Dr Mathew to review his past oncologic history and recent chemotherapy. He is currently not neutropenic. Not hypotensive or tachycardic. Tylenol given for fever. No respiratory distress noted. No meningeal signs. Report Date : 08/02/2017 18:09:58 Procedure: Chest xray Dictator : Benjie Gonzalez MD IMPRESSION: Stable mass left upper lobe. No new/ additional findings Lactate 2.2, mildly elevated, but he is cv stable. Given fever, suspicion of infection, hx of chemo and CA, CODE SEPSIS called. IV fluid bolus ordered, and patient initiated on iv antibiotics. Will recommend eval by his consultants of his scalp surgical wound as family expressed concern that "kelsy were supposed to be removed but they didn't want to do it". No abscess or purulent drainage noted. Case d/w Dr. Duncan, accepts admission to her service, will consult oncologist. Patient is nontoxic appearing, eating a meal with no distress at 1900. - Lab Interpretations Lab Results: 08/02/17 17:10 08/02/17 17:10 Lab Results 08/02/17 17:39: Urine Color Yellow, Urine Appearance Clear, Urine pH 7.0, Ur Specific [place] 1.015, Urine Protein Negative, Urine Glucose (UA) Negative, Urine Ketones Negative, Urine Blood Negative, Urine Nitrate Negative, Urine Bilirubin Negative, Urine Urobilinogen 2.0 H, Ur Leukocyte Esterase Negative 08/02/17 17:39: Influenza Typ A,B (EIA) Negative for flu a/b 08/02/17 17:10: Sodium 134, Chloride 97 L, Potassium 4.0, Carbon Dioxide 27, Anion Gap 14, BUN 16, Creatinine 0.7 L, Est GFR ( Amer) > 60, Est GFR ( Non-Af Amer) > 60, Random Glucose 97, Calcium 8.8, Total Bilirubin 0.9, AST 24, ALT 49, Alkaline Phosphatase 99, Lactate Dehydrogenase 663, Total Creatine Kinase 23 L, Troponin I < 0.01, Total Protein 6.5, Albumin 3.6, Globulin 2.9, Albumin/Globulin Ratio 1.2 08/02/17 17:10: pO2 32, VBG pH 7.36, VBG pCO2 49.0, VBG HCO3 27.7, VBG Total CO2 29.2 H, VBG O2 Sat (Calc) 69.3 H, VBG Base Excess 1.5, VBG Potassium 3.8, Sodium 131.0 L, Chloride 97.0 L, Glucose 99, Lactate 2.2 H, FiO2 21.0, Venous Blood Potassium 3.8 08/02/17 17:10: PT 13.7 H, INR 1.25 H, APTT 27.4 08/02/17 17:10: WBC 8.8 D, RBC 4.51, Hgb 12.7 L D, Hct 38.4 L, MCV 85.1, MCH 28.2, MCHC 33.1, RDW 15.0 H, Plt Count 145, MPV 9.9, Gran % 80.9 H, Lymph % ( Auto) 17.0 L, Sac % (Auto) 1.5, Eos % (Auto) 0.6 L, Baso % (Auto) 0.0, Gran # 7.10 H, Lymph # 1.5, Sac # 0.1, Eos # 0.1, Baso # 0.00 I have reviewed the lab results: Yes - RAD Interpretation Radiology Orders: 08/02/17 16:59 CHEST PORTABLE [RAD] Stat - Medication Orders Current Medication Orders: Clotrimazole (Mycelex Danette) 10 mg MT 5XD YRN Folic Acid (Folic Acid) 1 mg PO DAILY [facility] Sodium Chloride (Sodium Chloride 0.9%) 1,000 mls @ 100 mls/hr IV .Q10H YRN Last Admin: 08/02/17 17:35 Dose: 100 mls/hr eMAR Start Stop Document 08/02/17 17:35 LEON (Rec: 08/02/17 17:36 [id number]) Intravenous Solution Start Date 08/02/17 Start Time 17:36 Vancomycin HCl (Vancomycin 1gm) 1 gm in 250 mls @ 167 mls/hr IVPB STAT STA PRN Reason: Protocol Stop: 08/02/17 19:54 Meclizine HCl (Antivert) 25 mg PO TID [facility] Metoprolol Tartrate (Lopressor) 1 mg PO BID YRN Pantoprazole Sodium (Protonix Ec Tab) 1 mg PO DAILY YRN Discontinued Medications Acetaminophen (Tylenol 325mg Tab) 650 mg PO ONCE STA Stop: 08/02/17 17:02 Last Admin: 12/23/17 17:33 Dose: 650 mg MAR Pain/Vitals Document 08/02/17 17:33 RG (Rec: 08/02/17 17:35 RG [id number]) Vitals Temperature (97.6 F-99.6 F) 102.5 F Temperature Source Rectal Cefepime HCl (Maxipime 2gm) 2 gm in 100 mls @ 100 mls/hr IVPB STAT STA PRN Reason: Protocol Stop: 08/02/17 18:38 Last Admin: 08/02/17 18:09 Dose: 100 mls/hr eMAR Start Stop Document 08/02/17 18:09 MARY ANNE (Rec: 08/02/17 18:09 MARY ANNE [email or web address]) Intravenous Solution Start Date 08/02/17 Start Time 18:09 End Date 08/02/17 End time 19:09 Total Infusion Time 60 Lactated Ringer's 2,410 ml/ IV (SUPPLIES) 2,410 mls @ 4,817.16 mls/hr IV ONCE ONE PRN Reason: 60 ML/KG/HR Stop: 08/02/17 18:24 Last Admin: 08/02/17 18:44 Dose: 4,817.16 mls/hr eMAR Start Stop Document 08/02/17 18:44 RG (Rec: 08/02/17 18:45 RG [id number]) Intravenous Solution Start Date 08/02/17 Start Time 18:44 Ketorolac Tromethamine (Toradol) 30 mg IVP ONCE ONE Stop: 08/02/17 17:52 Last Admin: 08/02/17 18:04 Dose: 30 mg MAR Pain Assessment Document 08/02/17 18:04 MARY ANNE (Rec: 08/02/17 18:06 MARY ANNE [email or web address] Pain Reassessment Is this a pain reassessment? Yes Presence of Pain Presence of Pain No IVP Administration Document 08/02/17 18:04 MARY ANNE (Rec: 08/02/17 18:06 MARY ANNE [email or web address]) Charges for Administration # of IVP Administrations 1 Levetiracetam (Keppra) 1 mg PO BID YRN Meclizine HCl (Antivert) 1 mg PO TID YRN Oseltamivir Phosphate (Tamiflu Cap) 75 mg PO STAT STA PRN Reason: Protocol Stop: 08/02/17 17:04 Last Admin: 08/02/17 17:35 Dose: 75 mg - Scribe Statement The provider has reviewed the documentation as recorded by the Max Griggs Provider Scribe Attestation: All medical record entries made by the Scribe were at my direction and personally dictated by me. I have reviewed the chart and agree that the record accurately reflects my personal performance of the history, physical exam, medical decision making, and the department course for this patient. I have also personally directed, reviewed, and agree with the discharge instructions and disposition. Disposition/Present on Arrival - Present on Arrival Any Indicators Present on Arrival: No History of DVT/PE: No History of Uncontrolled Diabetes: No Urinary Catheter: No History of Decub. Ulcer: No History Surgical Site Infection Following: None - Disposition Have Diagnosis and Disposition been Completed?: Yes Diagnosis: Fever, Sepsis, Lung mass Disposition: HOSPITALIZED Disposition Time: 18:00 Patient Plan: Admission, Telemetry Condition: FAIR
[2017-08-02 17:20] LABS: VENOUS BLOOD GAS BASE EXCESS 1.5 mmol/L (0.0-2.0); VENOUS BLOOD GAS PO2 32 mm/Hg (30-55); VENOUS BLOOD PH 7.36 (7.32-7.43)
[2017-08-02 17:24] LABS: EOS # 0.1 (0.0-0.7); EOS % 0.6 % (1.5-5.0); GRAN # 7.1 (1.4-6.5); GRAN % 80.9 % (50.0-68.0); HEMOGLOBIN 12.7 g/dL (14.0-18.0); LYMPH # 1.5 (1.2-3.4); MEAN CELL VOLUME 85.1 fl (80.0-105.0); MEAN CORPUSCULAR HEMOGLOBIN 28.2 pg (25.0-35.0); MEAN CORPUSCULAR HGB CONC 33.1 g/dl (31.0-37.0); MEAN PLATELET VOLUME 9.9 fl (7.0-11.0); MONO # 0.1 (0.1-0.6); MONO % 1.5 % (1.0-6.0); RBC 4.51 10^6/uL (3.5-6.1); WHITE BLOOD COUNT 8.8 10^3/ul (4.5-11.0)
[2017-08-02 17:34] LABS: ALB/GLOB RATIO 1.2 (1.1-1.8); ALBUMIN 3.6 g/dL (3.0-4.8); ALT/SGPT 49 U/L (7-56); AST/SGOT 24 U/L (17-59); BLOOD UREA NITROGEN 16 mg/dL (7-21); CALCIUM 8.8 mg/dL (8.4-10.5); GFR AFRICAN-AMERICAN > 60; GFR NON-AFRICAN AMERICAN > 60
[2017-08-02 17:35] LABS: INR 1.25 (0.93-1.08); PARTIAL THROMBOPLASTIN TIME 27.4 Seconds (25.1-36.5); PROTHROMBIN TIME 13.7 SECONDS (9.4-12.5)
[2017-08-02] MEDS: Sodium Chloride 0.9% 1,000 ML IV SCH (17:35)
[2017-08-02] MEDS ORDERED: Cefepime IV 2 gm in NS 2 GM/100 ML BAG IVPB STA (17:39)
[2017-08-02 17:40] LABS: TROPONIN I < 0.01 ng/mL
[2017-08-02 17:53] LABS: URINE BILIRUBIN NEGATIVE (NEGATIVE); URINE BLOOD NEGATIVE (NEGATIVE); URINE GLUCOSE (UA) NEGATIVE (NEGATIVE); URINE LEUKOCYTE ESTERASE NEGATIVE Leu/uL (NEGATIVE); URINE NITRATE NEGATIVE (NEGATIVE); URINE PROTEIN NEGATIVE mg/dL (<30 mg/dL)
[2017-08-02 17:55] LABS: URINE APPEARANCE CLEAR (CLEAR); URINE COLOR YELLOW (YELLOW)
--- NOTE | 2017-08-02 18:11 | RAD ---
HISTORY: Fever, history of chemotherapy. History of lung carcinoma Relevant interventional procedure(s): 07/04/2017 CT-guided biopsy 6 cm left upper lobe lung mass COMPARISON: 07/04/2017 FINDINGS: LUNGS: Large left upper lobe lung mass known to be primary neoplasm. PLEURA: No significant pleural effusion identified, no pneumothorax apparent. CARDIOVASCULAR: Normal. OSSEOUS STRUCTURES: No significant abnormalities. VISUALIZED UPPER ABDOMEN: Normal. OTHER FINDINGS: None. IMPRESSION: Stable mass left upper lobe. No new/ additional findings
[2017-08-02] MEDS ORDERED: Vancomycin 1gm in NS 250ml 1 GM/250 ML BAG IVPB STA (18:25)
[2017-08-02 19:31] LABS: MAGNESIUM 1.8 mg/dL (1.7-2.2)
[2017-08-02] MEDS: Vancomycin 1gm in NS 250ml 1 GM/250 ML BAG IVPB SCH (20:11)
[2017-08-02 20:13] LABS: VENOUS BLOOD GAS BASE EXCESS 1.8 mmol/L (0.0-2.0); VENOUS BLOOD GAS PO2 63 mm/Hg (30-55); VENOUS BLOOD PH 7.45 (7.32-7.43)
[2017-08-02] MEDS: Cefepime 1gm in NS 100ml 1 GM/100 ML BAG IVPB SCH (21:44)
[2017-08-03] MEDS ORDERED: Influenza Vaccine 60 mcg/0.5 mL SYR (4YR UP) IM ONE (00:08)
[2017-08-03] MEDS ORDERED: Pneumococcal 23-Valent Vaccine IM ONE (00:08)
--- NOTE | 2017-08-03 01:53 | HP ---
HISTORY OF PRESENT ILLNESS: The patient is [id number] known to me from previous admission. Patient was recently admitted with left-sided numbness he was found to have lung mass with the brain mets, he has occipital done recently. Patient was also seen for a follow up 2, 3 days ago, he was doing well. He state since yesterday he is not feeling well and with generalized weakness and headache so he came to emergency room for further evaluation and in the ER he was found to have temperature 102.5 with pulse 102, respirations 18 and blood pressure 143/73. PAST MEDICAL HISTORY: Significant for, 1. Hypertension. 2. Lung CA. ALLERGIES: HE IS NOT ALLERGIC TO ANY MEDICATION. MEDICATION AT HOME: He is on Keppra 500 b.i.d., meclizine as needed, metoprolol 25 daily. He has been tapered down from Decadron that he was on earlier. He is on Mycelex Troches and Ciprodex ear drops. SOCIAL HISTORY: He has been smoking up until he got admitted. He still smokes few cigarette today when he stressed out. REVIEW OF SYSTEMS: Complain of feeling weak, dizzy, lightheaded. PHYSICAL EXAMINATION: GENERAL: He is awake, alert, oriented, and communicative. VITAL SIGNS: He is afebrile, pulse 93, respiration rate 16, and blood pressure 131/77. LUNGS: Bilateral fair airflow. No rhonchi or crackle. HEART: S1 and S2 audible. ABDOMEN: Soft and nontender. No rebound. No guarding. NEUROLOGIC: He is awake, alert, oriented, and able to communicate. LABORATORY DATA: WBC 8.8, hemoglobin 12.7, hematocrit 38.4, platelet 145. PT 13.7, INR 1.25. Chemistry: Sodium 134, potassium 4.0, chloride 97, CO2 of 27, BUN 16, creatinine 0.7, blood sugar of 130. LFTs are within normal limits. Urinalysis is unremarkable. Flu test is negative. X-ray of the chest shows left upper lobe mass. ASSESSMENT: 1. Fevers, source unknown. 2. Left upper lung mass with poorly-differentiated adenocarcinoma of the lung and mets to the brain. 3. Hypertension. 4. Hyperlipidemia. 5. PET scan positive for suprahilar lymph nodes also small elliptical wave area of high activity in the right hallow region. PLAN: Blood culture and urine cultures are done. We will empirically start patient on antibiotic start him on nebulizer treatment and ID consult by Dr. East is requested and then Oncology consult by Dr. Mathew has been appreciated. Raul Duncan MD
[2017-08-03 08:02] LABS: EOS % 0.8 % (1.5-5.0); GRAN # 3.83 (1.4-6.5); GRAN % 77.1 % (50.0-68.0); HEMOGLOBIN 11.9 g/dL (14.0-18.0); LYMPH # 1.1 (1.2-3.4); LYMPH % 21.5 % (22.0-35.0); MEAN CELL VOLUME 83.8 fl (80.0-105.0); MEAN CORPUSCULAR HEMOGLOBIN 27.9 pg (25.0-35.0); MEAN CORPUSCULAR HGB CONC 33.3 g/dl (31.0-37.0); MEAN PLATELET VOLUME 9.7 fl (7.0-11.0); MONO % 0.6 % (1.0-6.0); RBC 4.26 10^6/uL (3.5-6.1); RED CELL DISTRIBUTION WIDTH 15.1 % (11.5-14.5)
[2017-08-03 08:19] LABS: ALB/GLOB RATIO 1.1 (1.1-1.8); ALT/SGPT 47 U/L (7-56); AST/SGOT 20 U/L (17-59); BLOOD UREA NITROGEN 13 mg/dL (7-21); CALCIUM 8.5 mg/dL (8.4-10.5); GFR AFRICAN-AMERICAN > 60; GFR NON-AFRICAN AMERICAN > 60
[2017-08-03] MEDS: Sodium Chloride 0.9% 1,000 ML IV SCH (08:41)
--- NOTE | 2017-08-03 09:59 | CARD ---
APPROVED REPORT EKG Measurement Heart [id number] PA [id number] <Conclusion> Normal sinus rhythm Normal ECG. No change
[2017-08-03] MEDS ORDERED: Pantoprazole 40 mg EC Tab PO SCH (10:00)
[2017-08-03] MEDS: Pantoprazole 40 mg EC Tab PO SCH (10:08)
[2017-08-03] MEDS: Cefepime 1gm in NS 100ml 1 GM/100 ML BAG IVPB SCH ×2 (10:09→22:08)
[2017-08-03] MEDS: Vancomycin 1gm in NS 250ml 1 GM/250 ML BAG IVPB SCH ×2 (12:05→19:40)
--- NOTE | 2017-08-03 19:39 | CT ---
EXAM: CT Chest Without Intravenous Contrast EXAM DATE/TIME: 08/03/2017 1:08 PM CLINICAL HISTORY: The patient age is 57 years old and is male; Signs and symptoms and condition or disease; Lung condition and disease; Cancer of the lung; Left; Unspecified; Fever; Prior surgery; Surgery date: 1-6 months; Surgery type: HX. Lung biopsy 07-04-2017 per patient; Additional info: Fever R/O pna Facility exam id and description: Ct chests chest w/o contrast TECHNIQUE: Axial computed tomography images of the chest without intravenous contrast. All CT scans at this facility use one or more dose reduction techniques, viz.: automated exposure control; ma/kV adjustment per patient size (including targeted exams where dose is matched to indication; i.e. head); or iterative reconstruction technique. Coronal and sagittal reformatted images were created and reviewed. COMPARISON: CT GUIDED LUNG BIOPSY 2017-07-04 14:50 FINDINGS: Lungs: Within the left upper lobe, there is a 6.5 x 4.8 x 5.7 cm mass, consistent with malignancy. This is stable in size. There is a spiculated nodule within the right upper lobe on series 3 image 31 measuring 1.3 cm. Within the right middle lobe on series 3 image 95, there is a 4-5 mm nodule. At the posterior right lung base, a 1.3 cm nodule is visualized. Pleural-based densities are seen at the lateral aspect of the left lung base, likely due to atelectasis although additional nodules cannot be excluded. Within the left lower lobe on series 3 image 102, there is a 6-7 mm nodule. Mild dependent atelectatic changes visualized within the lungs. Otherwise, there is no confluent infiltrate. Emphysematous changes are identified bilaterally, which are predominantly centrilobular. Pleural space: No pneumothorax. No significant effusion. Heart: No cardiomegaly. No significant pericardial effusion. Thyroid: Hypodense nodules are visualized within the right thyroid lobe. One of these nodules measures 1.3 x 1.1 cm. Bones/joints: Hypertrophic degenerative changes are noted within the spine. Vasculature: No thoracic aortic aneurysm. Lymph nodes: There is mediastinal lymphadenopathy. An enlarged periaortic lymph node measures 2.1 x 1.7 cm, stable in size. Spleen: The spleen measures 13.8 cm in the craniocaudad dimension. IMPRESSION: 1. Within the left upper lobe, there is a 6.5 x 4.8 x 5.7 cm mass, consistent with malignancy. This is stable in size. 2. Scattered additional lung nodules are described above. Additional malignant nodules are considered. 3. Mild dependent atelectatic changes visualized within the lungs. Otherwise, there is no confluent infiltrate. 4. Hypodense nodules are visualized within the right thyroid lobe. Nonemergent ultrasonography is recommended. 5. There is mediastinal lymphadenopathy. An enlarged periaortic lymph node measures 2.1 x 1.7 cm, stable in size. 6. There is mild splenomegaly. 7. Emphysematous changes are identified bilaterally, which are predominantly centrilobular.
[2017-08-03] MEDS: Albuterol-Ipratrop 3 mg / 0.5 (3 ml) UD IH SCH (19:59)
--- NOTE | 2017-08-03 20:22 | PN ---
DATE: SUBJECTIVE: The patient is 57 years old, seen and examined, lying in bed, seems to be comfortable. No nausea or vomiting. Complaining of pain and headache. PHYSICAL EXAMINATION: VITAL SIGNS: Temperature 99.1, pulse 85, respirations 20, blood pressure 120/74. LUNGS: Bilateral good airflow. ABDOMEN: Soft, nontender. No rebound. No guarding. NEUROLOGIC: The patient is awake, alert, oriented, able to communicate. LABORATORY EXAMINATION: WBC is 5.0, hemoglobin is 11.9, hematocrit 35.7, platelets of 120. Chemistry: Sodium 133, potassium 4.1, chloride 103, CO2 23, BUN 13, creatinine 0.7, blood sugar of 90. LFTs are within normal limits. ASSESSMENT: 1. Fever, etiology unknown yet. 2. Recently diagnosed lung cancer. 3. Left otitis media. 4. History of hypertension. 5. Active smoker. PLAN: Currently, the patient is on vancomycin. He is on cefepime. CT scan of the chest has been ordered. We will follow that up. Continue these medications. I will start some nebulizer treatment also . Raul Duncan MD
--- NOTE | 2017-08-04 00:04 | CON ---
DATE: 08/03/2017 LOCATION: The patient was seen earlier this morning in room 369, bed 1. CHIEF COMPLAINT: Fever from several days. HISTORY OF PRESENT ILLNESS: This is a 57-year-old male with history of lung cancer with brain mets status post chemotherapy, last one was approximately 4 to 5 days ago, he states, who was admitted with fever and generalized aches, pains, and myalgias from several days. No headaches. No blurred vision. The patient has no abdominal pain, nausea, or vomiting. No dysuria or frequency. He does have cough. Cough is now productive. PAST MEDICAL HISTORY: Significant for hypertension and lung cancer with metastases to the brain, high cholesterol. PAST SURGICAL HISTORY: Significant for left fourth toe amputation and cardiac catheterization. ALLERGIES: THE PATIENT HAS NO KNOWN ALLERGIES TO ANY ANTIBIOTICS. MEDICATIONS AT HOME: Include Mycelex and the patient is on Decadron, the dosage is not sure of, folic acid, Keppra, meclizine, metoprolol, and Protonix. PHYSICAL EXAMINATION: GENERAL: The patient is in bed, in no acute distress. VITAL SIGNS: He has a temperature of 102.5, heart rate of 114, respiratory rate of 20, blood pressure is 120/70. HEENT: Unremarkable. NECK: Supple. LUNGS: Decreased breath sounds. HEART: Normal S1 and S2. ABDOMEN: Soft and nontender. No organomegaly. No rebound. No guarding. No masses. LABORATORY DATA: Reveals a white count 8.8, hemoglobin of 12, platelets of 145, 80% granulocytosis. BUN 16, creatinine of 0.7. LDH is 663. Urinalysis is noted. Serology, influenza is negative. Microbiology is pending. The patient had a chest x-ray, left lung mass known to have primary neoplasm. History and physical examination by Dr. Duncan is reviewed. EKG reveals a QTC of 433. Influenza is negative. Blood cultures and urine cultures have been ordered. ASSESSMENT AND PLAN: This is a 57-year-old male with lung cancer, brain metastases, who has had chemotherapy, his last chemotherapy was 4 to 5 days ago, history of hypertension, high cholesterol, was admitted with fever of 102, tachycardia, short of breath and cough, although the chest x-ray is negative. The patient is clinically behaving as: 1. Sepsis with healthcare-associated hospital-acquired pneumonia, on Maxipime and vancomycin. We will add p.o. doxycycline for atypicals and we will check on the blood cultures, urine cultures and we will order procalcitonin, pending blood, urine, and sputum culture. We will continue vancomycin and cefepime. We will review the serology. We will also order a CAT scan of the chest. The patient had HIV test in June which was negative. We will follow closely with you. Simone East MD
[2017-08-04] MEDS: Sodium Chloride 0.9% 1,000 ML IV SCH ×2 (02:00→10:10)
[2017-08-04] MEDS: Albuterol-Ipratrop 3 mg / 0.5 (3 ml) UD IH SCH ×4 (03:10→22:00)
[2017-08-04] MEDS: Pantoprazole 40 mg EC Tab PO SCH (10:03)
[2017-08-04] MEDS: Vancomycin 1gm in NS 250ml 1 GM/250 ML BAG IVPB SCH ×2 (10:04→21:06)
[2017-08-04] MEDS: Cefepime 1gm in NS 100ml 1 GM/100 ML BAG IVPB SCH ×2 (13:33→21:05)
--- NOTE | 2017-08-04 19:05 | PN ---
DATE: SUBJECTIVE: The patient is a 57-year-old, seen and examined, sitting in chair, seems to be comfortable. States headache has gone. No complaint of nausea or vomiting. PHYSICAL EXAMINATION: VITAL SIGNS: He does have fever of 101.3, pulse 102, respirations 20, blood pressure 148/73. LUNGS: Bilateral good air flow. No rhonchi or crackles. HEART: S1 and S2 audible. ABDOMEN: Soft, nontender. No rebound, no guarding. NEUROLOGIC: The patient is awake, alert, oriented, and communicative. EXTREMITIES: Bilateral legs, no edema. LABORATORY DATA: Blood cultures and urine cultures are negative. Sodium 133, potassium 4.1, chloride 103, CO2 of 23, BUN 13, creatinine 0.7. Blood sugar of 90. ASSESSMENT: 1. fever, etiology unknown. Cultures are negative. 2. Cancer of lung with metastases to the brain, status post excision of occipital lesion. 4. Significant mediastinal lymphadenopathy. 5. Chronic obstructive pulmonary disease. PLAN: Currently, the patient is on cefepime. He is on vancomycin. Continue Protonix. Continue on anti-seizure medication. He is not stable enough to be discharged yet. Raul Duncan MD
--- NOTE | 2017-08-04 22:49 | PN ---
DATE: 08/04/2017 SUBJECTIVE: The patient is in bed, in no acute distress, nontoxic. PHYSICAL EXAMINATION: VITAL SIGNS: Temperature is 98, blood pressure is 120/70, and respiratory rate is 16. HEENT: Unremarkable. NECK: Supple. LUNGS: Decreased breath sounds. HEART: Normal S1 and S2. ABDOMEN: Soft. LABORATORY DATA: Reveals a white count of 5000, hemoglobin of 11, and platelets of . BUN of 13 and creatinine of 0.7. Urinalysis is noted. Serology is noted. Microbiology reveals blood cultures are negative. Urine cultures, no growth. ASSESSMENT AND PLAN: A 57-year-old male with lung cancer, brain metastases, chemotherapy, his last chemotherapy 4 to 5 days ago with hypertension; high cholesterol admitted with a fever of 102; tachycardia; short of breath, chest x-ray negative with sepsis with healthcare-associated pneumonia, on vancomycin, Maxipime, and doxycycline. The patient had a chest CT and nodules are noted. Negative blood cultures and negative urine cultures. The patient still with fever of 101. We will follow with you. Overall prognosis is poor. Simone East MD
[2017-08-05] MEDS: Albuterol-Ipratrop 3 mg / 0.5 (3 ml) UD IH SCH ×4 (03:00→19:23)
[2017-08-05] MEDS: Pantoprazole 40 mg EC Tab PO SCH (09:38)
[2017-08-05] MEDS: Vancomycin 1gm in NS 250ml 1 GM/250 ML BAG IVPB SCH ×2 (09:39→21:00)
[2017-08-05] MEDS: Sodium Chloride 0.9% 1,000 ML IV SCH ×2 (09:40→17:22)
[2017-08-05 11:40] LABS: EOS % 1.2 % (1.5-5.0); GRAN # 2.27 (1.4-6.5); GRAN % 66.6 % (50.0-68.0); HEMOGLOBIN 11.5 g/dL (14.0-18.0); LYMPH # 0.9 (1.2-3.4); LYMPH % 25.5 % (22.0-35.0); MEAN CELL VOLUME 83.5 fl (80.0-105.0); MEAN CORPUSCULAR HEMOGLOBIN 28.3 pg (25.0-35.0); MEAN CORPUSCULAR HGB CONC 33.8 g/dl (31.0-37.0); MEAN PLATELET VOLUME 9.7 fl (7.0-11.0); MONO # 0.2 (0.1-0.6); MONO % 6.7 % (1.0-6.0); RBC 4.07 10^6/uL (3.5-6.1); WHITE BLOOD COUNT 3.4 10^3/ul (4.5-11.0)
[2017-08-05] MEDS: Cefepime 1gm in NS 100ml 1 GM/100 ML BAG IVPB SCH ×2 (12:03→21:58)
--- NOTE | 2017-08-05 13:22 | CON ---
DATE: 08/05/2017 REASON FOR CONSULTATION: Known metastatic lung cancer. HISTORY OF PRESENT ILLNESS: The patient is a 57-year-old male who was diagnosed with adenocarcinoma of the lung on last admission with solitary brain mets status post resection. Now, PET scan reveals multiple nodules in bilateral lungs as well as erosion of the third rib on the left side. He is now status post first cycle of chemotherapy with carboplatin, Alimta as well as Keytruda last week. Two days post chemotherapy, the patient developed fever of 102 and was advised to come to the hospital. He denies any other complaints besides the fever. He does have mild cough, but no productive sputum. No hemoptysis. No urinary symptoms. No other complaints. His other vital signs are perfectly normal as well. He had no fevers prior to administration of chemotherapy as well. PAST MEDICAL HISTORY: As above significant for hypertension as well as metastatic lung cancer. ALLERGIES: HE HAS NO KNOWN DRUG ALLERGIES. MEDICATIONS AT HOME: Include Keppra, meclizine, metoprolol. He has recently stopped Decadron for his brain mets. He is also on Mycelex Troches and Ciprodex for eardrops. FAMILY HISTORY: No family history of other malignancy. SOCIAL HISTORY: Positive for tobacco abuse for several years, but denies any alcohol use. He does have a living son. REVIEW OF SYSTEMS: As per the HPI. PHYSICAL EXAMINATION: GENERAL: The patient is a middle-aged male sitting up in chair, in no acute distress. VITAL SIGNS: Reveals temperature of 98.5 this morning, but T-max of 101, pulse of 91, respiratory rate 20, and blood pressure of 148/80. HEAD AND NECK: Normocephalic and atraumatic. Eyes: Pupils are equal, round, and reactive to light and accommodation. Extraocular muscles intact. There is some pallor. No icterus is noted. Neck is supple with no adenopathy. No JVD. No thyromegaly. LUNGS: Bilateral rhonchi are heard. CARDIOVASCULAR: S1 and S2 heard. The patient is tachycardic. ABDOMEN: Positive bowel sounds. Soft, nontender, nondistended. No organomegaly is palpated. EXTREMITIES: There is no edema, clubbing or cyanosis. LABORATORY DATA: His labs reveals white count of 5.0, hemoglobin of 1.9, hematocrit of 35.7. MCV of 83.8 and a platelet count of 120. Coag studies are within normal limits. Blood gases are within normal limits. Chemistries reveal normal BUN and creatinine. His influenza is negative. Urine is negative and blood cultures are negative so far. He did have CT of the chest done on admission as well, which reveals the large left upper lobe mass ,which is consistent with his primary tumor. There are no scattered nodules in the left lung as well as mediastinal lymphadenopathy, emphysematous changes, but there is no predominant infiltrate. ASSESSMENT AND PLAN: Middle-aged male with newly diagnosed metastatic adenocarcinoma of the lung, now admitted with fevers. So far, no source has been identified. Blood cultures, urine cultures as well as UA and sputum are all negative. His fever persist, could be likely tumor fever. We will start the patient on Decadron 4 mg b.i.d. If that does not subside the fever, we will consult with ID once again. Thank you for the consult. No CBC has been done in the last few days, advised on stat CBC. Nurse to call me with CBC results. May need Neupogen as well though he did receive Neulasta post his first cycle of chemotherapy. Thank you for the consult. We will follow. Alyssa Mathew MD
[2017-08-05 16:28] VITALS: RESP 18
--- NOTE | 2017-08-05 17:49 | PN ---
DATE: 08/05/2017 SUBJECTIVE: The patient is seen early this morning. He states he is no longer having fevers. He is comfortable. No fevers. No chills. No nausea. PHYSICAL EXAMINATION: VITAL SIGNS: Temperature is 98, T-max earlier this morning was 100.2, blood pressure is 140/80, respiratory rate of 20, and heart rate of 91. HEENT: Unremarkable. NECK: Supple. LUNGS: Decreased breath sounds. HEART: Normal S1 and S2. ABDOMEN: Soft and nontender. LABORATORY DATA: White count is 3.4, hemoglobin of 11, and platelets of 114. BUN of 13, creatinine of 0.7, and procalcitonin of 0.27. Influenza is negative. Microbiology reveals blood cultures are negative. Urine cultures are no growth. Sputum cultures are pending. The patient's CAT scan was checked as noted. Dr. Alyssa Mathew's note is reviewed. Review of orders reveals the patient is started on Decadron today. The patient is on p.o. doxycycline and cefepime. ASSESSMENT AND PLAN: This is a 57-year-old male with lung cancer, brain metastases, chemotherapy. His last chemotherapy was 4 to 5 days ago with hypertension; high cholesterol, fever of 102, tachycardia, and short of breath. Chest x-ray is negative with sepsis and healthcare-associated pneumonia, on Maxipime and doxycycline, with negative cultures, awaiting for this sputum culture and procalcitonin, which bacterial pneumonia, now on Decadron, day #3 of antibiotics. Simone East MD
[2017-08-05] MEDS ORDERED: DiphenhydrAMINE 1% 1 EA TUBE TOP PRN (19:02)
--- NOTE | 2017-08-05 19:47 | PN ---
DATE: SUBJECTIVE: The patient is a 57-year-old, seen and examined, sitting in chair, anxious to go home. PHYSICAL EXAMINATION: VITAL SIGNS: He is afebrile, did have axillary temperature of 99.1, pulse 93, respirations 18, and blood pressure 133/76. LUNGS: Bilateral soft crackles. HEART: S1 and S2 audible. ABDOMEN: Soft and nontender. No rebound. No guarding. NEUROLOGIC: The patient is awake, alert, oriented, and communicative. LABORATORY DATA: WBC 3.4, hemoglobin 11.5, hematocrit 34, and platelet 140. Chemistries: Sodium 133, potassium 4.1, chloride 103, CO2 of 23, BUN 13, creatinine 0.7, blood sugar of 90. Blood cultures, urine cultures are negative. ASSESSMENT: 1. Fever, etiology unknown. All cultures are negative. Questionable most obstructive pneumonia. 2. Lung cancer with metastasis to the occipital brain status post excision. 3. Oral thrush. 4. History of hypertension. PLAN: Currently, the patient is on doxycycline. He has been started on dexamethasone by Dr. Mathwe with the thought of probably tumor fever. We will continue on cefepime and he is on Keppra and also continue on vancomycin. We will reevaluate in a.m. If he is afebrile for the next 24 hours, will make discharge. Raul Duncan MD
[2017-08-06] MEDS: Albuterol-Ipratrop 3 mg / 0.5 (3 ml) UD IH SCH ×2 (01:06→07:40)
[2017-08-06] MEDS: Sodium Chloride 0.9% 1,000 ML IV SCH (03:24)
[2017-08-06 07:55] VITALS: BP 130/79; TEMP 98.3; O2SAT 97
[2017-08-06] MEDS: Vancomycin 1gm in NS 250ml 1 GM/250 ML BAG IVPB SCH (08:37)
[2017-08-06] MEDS: Pantoprazole 40 mg EC Tab PO SCH (09:36)
[2017-08-06] MEDS: Aluminum Hydroxide/Magnesium 30 ML, DiphenhydrAMINE 75 MG, Lidocaine 2% Viscous 30 ML PO SCH ×2 (10:08→14:03)
[2017-08-06 10:36] VITALS: PULSE 109
[2017-08-06] MEDS: Cefepime 1gm in NS 100ml 1 GM/100 ML BAG IVPB SCH (10:55)
--- NOTE | 2017-08-06 19:52 | PN ---
DATE: 08/06/2017 SUBJECTIVE: The patient is in bed, in no acute distress. PHYSICAL EXAMINATION: VITAL SIGNS: Temperature is 98, blood pressure is 130/70, respiratory rate of 18, heart rate of 72. HEENT: Unremarkable. NECK: Supple. LUNGS: Have decreased breath sounds. HEART: Normal S1 and S2. ABDOMEN: Soft. LABORATORY EXAMINATION: Reveals a white count of 3.4, hemoglobin of 11, platelets of 114. BUN of 13, creatinine of 0.7, procalcitonin 0.27. Urinalysis is noted and serology is influenza is negative. Microbiology reveals the blood cultures are negative. Urine cultures are negative. Sputum cultures are noted and. ASSESSMENT AND PLAN: A 57-year-old male with lung cancer, brain metastases chemotherapy, and chemotherapy 4 or 5 days prior to admission and hypertension, high-cholesterol, fever of 102, tachycardia, shortness of breath and with sepsis, healthcare-associated pneumonia with negative cultures and negative influenza, negative procalcitonin, and may complete with p.o. doxycycline. The patient is doing very well and was seen early this morning. Simone East MD
--- NOTE | 2017-08-07 01:16 | DS ---
HISTORY OF PRESENT ILLNESS: The patient is 57 years old, seen and examined, anxious to go home. No nausea, vomiting, or diarrhea. PHYSICAL EXAMINATION: VITAL SIGNS: The patient is afebrile, pulse 79, respirations 18, blood pressure 130/79. LUNGS: Bilateral fair airflow. No rhonchi or crackle. HEART: S1, S2, audible. ABDOMEN: Abdomen is soft, nontender. No rebound or guarding. NEUROLOGICAL: The patient is awake and alert. Able to communicate. LABORATORY EXAMINATION: WBC is 3.4, hemoglobin 11.5, hematocrit 34, platelet 114. Chemistry, sodium 133, potassium 4.1, chloride 103, CO2 of 23, BUN 13, creatinine 0.7, blood sugar of 90. Urinalysis is unremarkable. Blood culture, urine cultures are negative. ASSESSMENT: 1. High-grade fever. Cultures are negative. Probably tumor fever. 2. Carcinoma of lung with metastasis to the brain, status post excision. The patient is currently on chemotherapy with Dr. Mathew. Last treatment was 5 to 6 days ago. PLAN: The patient has been afebrile since started on Decadron. We will discharge him on Decadron 4 mg twice a day and taper down to 2 mg twice a day, then he will follow up with Dr. Mathew to continue his chemotherapy and will be monitored. Raul Duncan MD
--- NOTE | 2017-08-08 09:43 | PQF PNEUMO ---
08/08/17 Dr. Duncan, From the documentation on your discharge summary, patient has fever which is probably tumor-related. ID physician documents "sepsis with healthcare- associated pneumonia." Do you agree, disagree, undetermined with pneumonia? If you agree, was this present on admission? Thank you. Clarification of your documentation is requested to better reflect the severity of illness and intensity of treatment of your patient. Indicators present [] Documented diagnosis of pneumonia [] X-ray findings: [] Positive Sputum cultures [] Cough w/ fever [] Abnormal lungs sounds [] Poor gag reflex [] Speech consults/swallow evaluation [] Vent dependence [] Other: [] Location in the medical record that reflects the above clinical findings: [] Treatment Provided: [] PHYSICIAN'S RESPONSE Based on your medical judgment of the clinical indicators outlined above, are you treating this patient for a known or suspected: [] Aspiration pneumonia [] Community acquired pneumonia [] Ventilator associated pneumonia [] Viral pneumonia [] Bacterial pneumonia Please specify organism: [] [x] Other, please indicate lung CA and tumor related fever [] If Unable to Determine, please check the box, sign and date. Present On Admission (POA) Indicator: [] Present at the time of admission [] Not present at the time of admission [] Clinically Undetermined In responding to this query, please exercise your independent professional judgment. The fact that a question is asked does not imply that any particular answer is desired or expected. Thank you for your clarification on this documentation. If you have any questions please call:[ ] * Thank you, [ ] handbag operator VALERIE
== END 2017-08-06 15:29 | disposition home or self-care (01) | DRG 864 ==
LOC: ED 16:15 → ERH 17:53 → 3RNO 21:06
PROVIDERS: ADMIT Internal Medicine; ATTEND Internal Medicine
DX: R50.9 Fever, unspecified (principal); C79.31 Secondary malignant neoplasm of brain; B37.0 Candidal stomatitis; C34.90 Malignant neoplasm of unspecified part of unspecified bronchus or lung; J43.9 Emphysema, unspecified; E78.00 Pure hypercholesterolemia, unspecified; E78.5 Hyperlipidemia, unspecified; F17.210 Nicotine dependence, cigarettes, uncomplicated; H54.7 Unspecified visual loss; H66.92 Otitis media, unspecified, left ear; I10 Essential (primary) hypertension; Y95 Nosocomial condition; Z85.118 Personal history of other malignant neoplasm of bronchus and lung; Z87.11 Personal history of peptic ulcer disease; Z92.21 Personal history of antineoplastic chemotherapy

== ENCOUNTER 2018-09-14 05:07 | Outpatient (CLI) | payer BC | END 2018-09-14 05:08 | disposition home or self-care (01) | LOC: PET-BROA 05:07 ==

== ENCOUNTER 2018-09-25 13:36 | Outpatient (CLI) | payer BC | END 2018-09-25 13:37 | disposition home or self-care (01) | LOC: RAD 13:36 | DX: C79.31 Secondary malignant neoplasm of brain (principal) ==

== ENCOUNTER 2018-12-18 14:05 | Outpatient (CLI) | payer BC | END 2018-12-18 14:06 | disposition home or self-care (01) | LOC: RAD 14:05 | DX: C34.12 Malignant neoplasm of upper lobe, left bronchus or lung (principal) ==

== ENCOUNTER 2018-12-28 05:38 | Outpatient (CLI) | payer BC | END 2018-12-28 05:39 | disposition home or self-care (01) | LOC: PET-BROA 05:38 ==